=== PATIENT | male | born 1940 | race Hispanic/Latino ===

== ENCOUNTER 2017-08-08 12:53 | Inpatient (IN) | payer MEDICARE, OTHER ==
[2017-08-08] MEDS ORDERED: Sodium Chloride 0.9% 1,000 ML IV SCH (13:00)
[2017-08-08 13:32] LABS: BASO # 0.1 K/uL (0.0-0.2); BASO % 1.1 % (0.0-2.0); EOS # 0.1 K/uL (0.0-0.7); EOS % 0.9 % (0.0-4.0); HEMOGLOBIN 13.4 g/dL (12.0-18.0); LYMPH # 0.9 K/uL (1.0-4.3); LYMPH % 7.9 % (20.0-40.0); MEAN CELL VOLUME 91.2 fl (80.0-94.0); MEAN CORPUSCULAR HEMOGLOBIN 29.3 pg (27.0-31.0); MEAN CORPUSCULAR HGB CONC 32.1 g/dL (33.0-37.0); MEAN PLATELET VOLUME 9.3 fl (7.2-11.7); MONO # 0.6 K/uL (0.0-0.8); MONO % 5.3 % (0.0-10.0); NEUT # 9.3 K/uL (1.8-7.0); NEUT % 84.8 % (50.0-75.0); PLATELET COUNT 326 K/uL (130-400); RBC 4.59 Mil/uL (4.40-5.90); RED CELL DISTRIBUTION WIDTH 16.4 % (11.5-14.5)
--- NOTE | 2017-08-08 13:32 | CT ---
PROCEDURE: CT HEAD WITHOUT CONTRAST. HISTORY: code stroke COMPARISON: CT head dated 06/09/2008. TECHNIQUE: Axial computed tomography images were obtained through the head/brain without intravenous contrast. Radiation dose: Total exam DLP = 2228.9 mGy-cm. This CT exam was performed using one or more of the following dose reduction techniques: Automated exposure control, adjustment of the mA and/or kV according to patient size, and/or use of iterative reconstruction technique. FINDINGS: HEMORRHAGE: 2.1 x 1.7 cm area of hemorrhage involving the medial right parietal occipital lobe with involvement of the right splenium. No intraventricular hemorrhage. BRAIN: No midline shift. No mass effect or edema. Atrophy. Chronic microvascular ischemic changes. VENTRICLES: Prominent. No hydrocephalus. CALVARIUM: Unremarkable. PARANASAL SINUSES: Unremarkable as visualized. No significant inflammatory changes. MASTOID AIR CELLS: Unremarkable as visualized. No inflammatory changes. OTHER FINDINGS: None. IMPRESSION: 2.1 x 1.7 cm area of hemorrhage involving the right medial right parieto-occipital lobe with involving the right splenium. No midline shift or intraventricular hemorrhage. Findings conveyed to Dr. Estrella by Dr. Smith at 1:18 p.m. on 08/08/2017.
[2017-08-08 13:40] LABS: PARTIAL THROMBOPLASTIN TIME 30.4 Seconds (25.6-37.1); PROTHROMBIN TIME 11.1 Seconds (9.8-13.1)
[2017-08-08 13:44] VITALS: BMI 19.5
[2017-08-08] MEDS ORDERED: Sodium Chloride 0.9% 50 ML IV ONE (13:54)
[2017-08-08] MEDS ORDERED: Iodixanol 320 MG/ML 100 ML BOTTLE IV ONE (13:54)
--- NOTE | 2017-08-08 13:56 | ED PDOC ---
HPI:STROKE - Time Time: 13:00 - Historian Historian: Patient, EMS - Chief Complaint Chief Complaint: Weakness, Facial droop - Onset Date: 08/08/17 Time: 12:45 Onset: Hours - Timing Timing: Currently Symptomatic - Context Context: Other (working in the garden) - Location Locate left: other (UE and LE, face) - Severity of pain Maximum severity:: None Severity Current: None - TPA Positive for Contraindication: Yes Reason tPA is not being Administered: intracranial bleeding NIHSS Stroke Scale - Date/Time Evaluation Performed Date Performed: 08/08/17 Time Performed: 13:00 When Was NIHSS Performed: Code Stroke - How Severe is the Stroke Level of Consciousness: 0=Alert LOC to Questions: 0=Both comments correct LOC to commands: 0=Obeys both correctly Best Gaze: 0=Normal Visual: 0=No visual loss Facial: 1=Minor asymmetry Motor Arm - Left: 2=Falls before 10 sec Motor Arm - Right: 1=Drift noted before 10 sec Motor Leg - Left: 3=No effort against gravity (falls immediately) Motor Leg - Right: 0=No drift Limb Ataxia: 1=Present Upper or Lower Sensory: 0=Normal Best Language: 0=No aphasia Dysarthia: 0=Normal articulation Extinction & Inattention (Neglect): 0=Normal, no object Score: 8 rTPA Inclusion/Exclusion - Refusal of Treatment Patient Refused Treatment: No - Inclusion Criteria for Altepase Patient is 18 years or Older: Yes The Clinical Diagnosis of Ischemic Stroke That is Causing a Potentially Disabling Neurological Deficit: No Time of Onset is Well Established to be Less Than 270 Minute Before Treatment Would Begin: Yes Risk/Benefit Discussed With Patient/Family Member Present: No - Exclusion Criteria for Altepase Evidence of an Intracranial Hemorrhage: Yes Past Medical History Reviewed: Historical Data, Nursing Documentation, Vital Signs Vital Signs: Last Vital Signs Temp 97.9 F 08/08/17 13:44 Pulse 99 H 08/08/17 13:45 Resp 22 08/08/17 13:45 BP 120/79 08/08/17 13:45 Pulse Ox 98 08/08/17 13:45 - Medical History PMH: No Chronic Diseases - Family History Family History: States: Unknown Family Hx - Home Medications Home Medications: Ambulatory Orders Medication Instructions Recorded Aspirin [Ecotrin] 81 mg PO DAILY 08/08/17 - Allergies Allergies/Adverse Reactions: Allergies Allergy/AdvReac Type Severity Reaction Status Date / Time No Known Allergies Allergy Verified 08/08/17 12:58 Review of Systems ROS Statement: Except As Marked, All Systems Reviewed And Found Negative Neurological: Positive for: Weakness (left face, arm, leg), Other (shaking, facial droop) Physical Exam - Reviewed Nursing Documentation Reviewed: Yes Vital Signs Reviewed: Yes - Physical Exam Appears: Positive for: Non-toxic, No Acute Distress Head Exam: Positive for: ATRAUMATIC, NORMAL INSPECTION, NORMOCEPHALIC Skin: Positive for: Normal Color, Warm, Dry Eye Exam: Positive for: EOMI, Normal appearance, PERRL ENT: Positive for: Normal ENT Inspection Neck: Positive for: Normal, Painless ROM, Supple. Negative for: Decreased ROM, Limited ROM Cardiovascular/Chest: Positive for: Tachycardia, Irregularly Irregular. Negative for: Murmur Gastrointestinal/Abdominal: Positive for: Normal Exam, Bowel Sounds, Soft. Negative for: Tenderness, Guarding, Rebound Back: Positive for: Normal Inspection. Negative for: L CVA Tenderness, R CVA Tenderness Extremity: Positive for: Normal ROM. Negative for: Tenderness, Pedal Edema, Deformity Neurologic/Psych: Positive for: Alert (awake), Oriented (x3), Facial Droop (left -side), Other (seizure activity, weakness on left arm and leg) - Laboratory Results Result Diagrams: 08/08/17 13:20 08/08/17 13:20 - ECG O2 Sat by Pulse Oximetry: 98 (RA) Pulse Ox Interpretation: Normal - Progress ED Course And Treament: 77 year old male was brought to the ED via EMS who reported patient had a facial droop and was shaking 15 minutes prior to arrival. According to EMS, patient was working in the garden and developed weakness and ambulance was called. Patient is not complaining at this time but hands and body are still shaking at this time. States he has not had seizure in the past. Denies loss of consciousness, fall, or head injury. PMD: No Family Provider - Critical Care Total Time (In Min): 60 Medical Decision Making Medical Decision Making: Time: 1300 Initial Impression: stroke, seizure Differential Diagnosis includes but is not limited to: acute CVA, hemorrhagic vs ischemic, seizure Initial Plan: --BBK --CTZ Head/Neck Code Stroke CT --Head w/o (code stroke) CT --EKG --CMP --Hemoglobin A1C --Lipid Panel --Troponin I --CBC w/ Differential --PTT --Prothrombin Time --Ativan 2mg --Normal Saline 100mls/hr --Rail Bonder --IV Insertion --Nursing swallow screen --Glucose, Blood, POC --Vital Signs Q15min --Reevaluation Code stroke called when patient arrived at 13:00 Time: 1319 CT report Spoke to Radiologist who confirmed it is a hemorrhagic stroke Time: [address] Elder, neurologist who advised to admit patient to ICU and have neurosurgical consult. Time: [address] Art who suggested no neurosurgical evaluation or interventions indicated at this time. Time: 1330 Spoke to prevocational/rehabilitation counselor, Dr. Johnson for admission Spoke with Dr Brower for admission who requests Dr Bryant Time: 1330 PROCEDURE: CT HEAD WITHOUT CONTRAST. HISTORY: code stroke COMPARISON: CT head dated 06/09/2008. TECHNIQUE: Axial computed tomography images were obtained through the head/brain without intravenous contrast. Radiation dose: Total exam DLP = 2228.9 mGy-cm. This CT exam was performed using one or more of the following dose reduction techniques: Automated exposure control, adjustment of the mA and/or kV according to patient size, and/or use of iterative reconstruction technique. FINDINGS: HEMORRHAGE: 2.1 x 1.7 cm area of hemorrhage involving the medial right parietal occipital lobe with involvement of the right splenium. No intraventricular hemorrhage. BRAIN: No midline shift. No mass effect or edema. Atrophy. Chronic microvascular ischemic changes. VENTRICLES: Prominent. No hydrocephalus. CALVARIUM: Unremarkable. PARANASAL SINUSES: Unremarkable as visualized. No significant inflammatory changes. MASTOID AIR CELLS: Unremarkable as visualized. No inflammatory changes. OTHER FINDINGS: None. IMPRESSION: 2.1 x 1.7 cm area of hemorrhage involving the right medial right parieto- occipital lobe with involving the right splenium. No midline shift or intraventricular hemorrhage. Findings conveyed to Dr. Estrella by Dr. Smith at 1:18 p.m. on 08/08/2017. Scribe Attestation: Documented by Marco Antonio Weir, acting as a scribe for Corry Estrella MD Provider Scribe Attestation: All medical record entries made by the Scribe were at my direction and personally dictated by me. I have reviewed the chart and agree that the record accurately reflects my personal performance of the history, physical exam, medical decision making, and the department course for this patient. I have also personally directed, reviewed, and agree with the discharge instructions and disposition. Disposition - Clinical Impression Clinical Impression: Hemorrhagic cerebrovascular accident (CVA), Intraparenchymal hemorrhage of brain, Seizure - Patient ED Disposition Is Patient to be Admitted: Yes Discussed With : Clint Brower Doctor Will See Patient In The: Hospital Counseled Patient/Family Regarding: Studies Performed, Diagnosis - Disposition Disposition: Routine/Home Disposition Time: 13:30 Condition: GUARDED - Pt Status Changed To: Hospital Disposition Of: Inpatient - Admit Certification Admit to Inpatient:: After my assessment, the patient will require hospitalization for at least two midnights. This is because of the severity of symptoms shown, intensity of services needed, and/or the medical risk in this patient being treated as an outpatient. - POA Present On Arrival: None Core Measure Indicators: Code Stroke
[2017-08-08 13:57] LABS: ALB/GLOB RATIO 1.1 (1.0-2.1); ALBUMIN 4.1 g/dL (3.5-5.0); ALT/SGPT 14 U/L (21-72); AST/SGOT 22 U/L (17-59); BLOOD UREA NITROGEN 23 mg/dl (9-20); CALCIUM 9.2 mg/dL (8.4-10.2); GFR AFRICAN-AMERICAN > 60; GFR NON-AFRICAN AMERICAN > 60; HDL CHOLESTEROL 56 MG/DL (30-70)
--- NOTE | 2017-08-08 14:00 | RAD ---
HISTORY: Code Stroke COMPARISON: Chest radiograph dated 04/19/2008 FINDINGS: LUNGS: No active pulmonary disease. PLEURA: No significant pleural effusion identified, no pneumothorax apparent. CARDIOVASCULAR: Atherosclerotic aortic calcifications. Cardiomediastinal silhouette unchanged. OSSEOUS STRUCTURES: Degenerative changes. VISUALIZED UPPER ABDOMEN: Normal. OTHER FINDINGS: None. IMPRESSION: No active disease.
[2017-08-08 14:08] LABS: LDL CHOLESTEROL 74 mg/dL (0-129)
[2017-08-08 14:30] LABS: LYMPHOCYTE 13 % (20-50); MONOCYTE 3 % (0-10); NEUTROPHIL 84 % (42-75); PLATELET ESTIMATE NORMAL (NORMAL); TOTAL CELLS COUNTED 100
[2017-08-08 14:33] LABS: ANISOCYTOSIS SLIGHT; HYPERSEGMENTATION PRESENT
--- NOTE | 2017-08-08 15:06 | CARD ---
APPROVED REPORT EKG Measurement Heart [id number] PA [id number] [id number] <Conclusion> Sinus rhythm with premature supraventricular complexes Septal infarct, age undetermined Abnormal ECG
[2017-08-08] MEDS ORDERED: Potassium Ch 20mEq in D5-1/2NS 1,000 ML IV SCH (15:30)
--- NOTE | 2017-08-08 18:00 | CT ---
PROCEDURE: CT Angiography of the Brain and Neck. HISTORY: stroke COMPARISON: None available. TECHNIQUE: CT angiography of the intracranial and neck arteries was performed. Coronal and sagittal maximum intensity projection reformatted images were generated. Contrast Dose: Visipaque 320, 99 cc Radiation dose:Total exam DLP = 826.42 mGy-cm. This CT exam was performed using one or more of the following dose reduction techniques: Automated exposure control, adjustment of the mA and/or kV according to patient size, and/or use of iterative reconstruction technique. FINDINGS: INTERNAL CEREBRAL ARTERIES: Unremarkable. The skull base, petrous, cavernous and supraclinoid segments are bilaterally widely patent. ANTERIOR CEREBRAL ARTERIES: Unremarkable. A1 and A2 segments are widely patent. Smaller distal branches unremarkable, as visualized. MIDDLE CEREBRAL ARTERIES: Unremarkable. M1 and M2 segments are widely patent. Perisylvian branches grossly symmetric. POSTERIOR CIRCULATION: Basilar Artery: Unremarkable. Distal Vertebral Arteries: Unremarkable. Codominant vertebral basilar flow pattern identified. Posterior Cerebral Arteries: Unremarkable. Posterior Inferior Cerebellar Arteries: Unremarkable. NECK CTA: Common Carotid arteries: The bilateral common carotid appear widely patent from their origins to their bifurcations with no significant stenosis appreciated. Trace bilateral carotid bulbar atherosclerosis No evidence to suggest common carotid artery dissection. Bovine arch noted Internal Carotid arteries: No significant stenosis is appreciated throughout the cervical internal carotid artery segments bilaterally and there is no evidence of dissection either. External Carotid arteries: Appear unremarkable bilaterally. Vertebral arteries: The bilateral vertebral arteries appear normal in caliber from their origins to their junction with the basilar artery. No significant stenosis or definite pattern of dissection. ANEURYSM/ VASCULAR MALFORMATIONS: None. OTHER FINDINGS: None. IMPRESSION: No occlusion or significant stenosis throughout CT Angiography of the Brain and Neck. Bovine arch noted.
--- NOTE | 2017-08-08 20:43 | CP.PCM.HP ---
History of Present Illness - History of Present Illness History of Present Illness: 77 yo with hx HTN smoker admitted for L sided weakness CT scan showed a R parietal occipital hemorrhage Present on Admission - Present on Admission Any Indicators Present on Admission: No Past Patient History - Past Social History Smoking Status: Heavy Smoker > 10 Cigarettes Daily - CARDIAC Hx Cardiac Disorders: No - HEMATOLOGICAL/ONCOLOGICAL Hx AIDS: No Hx Human Immunodeficiency Virus (HIV): No - MUSCULOSKELETAL/RHEUMATOLOGICAL Hx Falls: No - PSYCHIATRIC Hx Substance Use: No - SURGICAL HISTORY Hx Surgeries: No - ANESTHESIA Hx Anesthesia: Yes Hx Anesthesia Reactions: No Hx Malignant Hyperthermia: No Has any member of the family had a problem w/ anesthesia?: No Meds Allergies/Adverse Reactions: Allergies Allergy/AdvReac Type Severity Reaction Status Date / Time No Known Allergies Allergy Verified 08/08/17 12:58 Physical Exam - Respiratory Exam Respiratory Exam: NORMAL BREATHING PATTERN - Cardiovascular Exam Cardiovascular Exam: REGULAR RHYTHM - GI/Abdominal Exam GI & Abdominal Exam: Normal Bowel Sounds Results - Vital Signs Recent Vital Signs: Last Vital Signs Temp 98 F 08/08/17 20:00 Pulse 69 08/08/17 20:00 Resp 20 08/08/17 20:00 BP 139/88 08/08/17 20:00 Pulse Ox 99 08/08/17 20:00 - Labs Result Diagrams: 08/08/17 13:20 08/08/17 13:20 Labs: Laboratory Results - last 24 hr 08/08/17 08/08/17 08/08/17 13:20 13:20 13:20 WBC 11.0 H RBC 4.59 Hgb 13.4 Hct 41.9 MCV 91.2 MCH 29.3 MCHC 32.1 L RDW 16.4 H Plt Count 326 MPV 9.3 Neut % (Auto) 84.8 H Lymph % (Auto) 7.9 L Dewitt % (Auto) 5.3 Eos % (Auto) 0.9 Baso % (Auto) 1.1 Neut # (Auto) 9.3 H Lymph # (Auto) 0.9 L Dewitt # (Auto) 0.6 Eos # (Auto) 0.1 Baso # (Auto) 0.1 Neutrophils % (Manual) 84 H Lymphocytes % (Manual) 13 L Monocytes % (Manual) 3 Hypersegmented Polys Present Platelet Estimate Normal Anisocytosis (manual) Slight PT INR APTT Sodium 142 Potassium 4.0 Chloride 104 Carbon Dioxide 20 L Anion Gap 22 H BUN 23 H Creatinine 1.0 Est GFR ( Amer) > 60 Est GFR (Non-Af Amer) > 60 Random Glucose 154 H Hemoglobin A1c 5.5 Calcium 9.2 Total Bilirubin 0.4 AST 22 ALT 14 L Alkaline Phosphatase 54 Troponin I < 0.0120 Total Protein 7.7 Albumin 4.1 Globulin 3.6 Albumin/Globulin Ratio 1.1 Triglycerides 66 Cholesterol 152 LDL Cholesterol Direct 74 HDL Cholesterol 56 Blood Type Antibody Screen BBK History Checked 08/08/17 08/08/17 13:20 13:20 WBC RBC Hgb Hct MCV MCH MCHC RDW Plt Count MPV Neut % (Auto) Lymph % (Auto) Dewitt % (Auto) Eos % (Auto) Baso % (Auto) Neut # (Auto) Lymph # (Auto) Dewitt # (Auto) Eos # (Auto) Baso # (Auto) Neutrophils % (Manual) Lymphocytes % (Manual) Monocytes % (Manual) Hypersegmented Polys Platelet Estimate Anisocytosis (manual) PT 11.1 INR 1.0 APTT 30.4 Sodium Potassium Chloride Carbon Dioxide Anion Gap BUN Creatinine Est GFR ( Amer) Est GFR (Non-Af Amer) Random Glucose Hemoglobin A1c Calcium Total Bilirubin AST ALT Alkaline Phosphatase Troponin I Total Protein Albumin Globulin Albumin/Globulin Ratio Triglycerides Cholesterol LDL Cholesterol Direct HDL Cholesterol Blood Type O POSITIVE Antibody Screen Negative BBK History Checked Patient has bt Assessment & Plan - Assessment and Plan (Free Text) Assessment: R parietal occipital lobe hemorrhage Admit to ICU Neurology and Neurosurgery Cardiology Monitor BP Hx HTN smoker - Date & Time Date: 08/08/17 Time: 22:22
--- NOTE | 2017-08-09 04:07 | CON ---
DATE: 08/08/2017 CRITICAL CARE CONSULTATION Patient in ICU, bed 433 TIME SPENT: 35 minutes. The patient is seen and evaluated at the bedside at the request of ER physician for this 77-year-old male who presented to the emergency room with weakness and facial droop. HISTORY OF PRESENT ILLNESS: The patient is a 77-year-old male with no significant medical history in the past, on aspirin 81 mg at home who has been in his usual state of health until this morning when he felt weak on his left arm and left leg associated with facial droop. Brought to emergency room by EMS. In ER, the patient was noted to be alert and awake and able to follow commands appropriately. Vital signs showed temperature 97.9; heart rate 99, regular; respiratory rate 22, thoracoabdominal; blood pressure 120/79, and pulse oximetry 98%. Code stroke was called. Obtained a CT of the head that showed right parietal bleed 2.1 x 1.7 cm without significant edema. No midline shift as well as no intraventricular hemorrhage. The patient is admitted to ICU for further observation and management. PAST MEDICAL HISTORY: Negative for diabetes mellitus type 2, hypertension, hyperlipidemia, coronary artery disease, congestive heart failure, asthma, COPD. No other coagulation disorder. SURGICAL HISTORY: Unremarkable. MEDICATIONS: As noted, aspirin. ALLERGIES: NONE DOCUMENTED. FAMILY HISTORY: Nonsignificant. SOCIAL HISTORY: Unremarkable. PHYSICAL EXAMINATION: GENERAL: Elderly male oriented to name, place, and time and slow to respond. VITAL SIGNS: Temperature 97.9 rectally, heart rate 99, regular, blood pressure 120/79, mean arterial pressure 92, respiratory rate 22, and saturation 98%. HEENT: Pupils are reactive. Conjunctivae pink. Sclerae are white. Neck supple. Trachea central. CHEST: Bilateral breath sounds clear to auscultation. HEART: Rhythm regular. S1 and S2 normal intensity. No S3, S4, or gallop. No audible murmur. ABDOMEN: Bowel sounds are present. Soft. Liver and spleen not palpable. Bladder not distended. EXTREMITIES: No clubbing, cyanosis, edema. NEUROLOGIC: Left facial droop. Motor weakness to 1 to 2 over 5 on the left arm and the left leg. Deep tendon reflexes 2+ bilaterally. Plantar extensor on the right, equivocal on the left. LABORATORY DATA AND DIAGNOSTIC DATA: WBC 11, hemoglobin 13.4, hematocrit 41.9, platelet count 326. Neutrophils 84.8, leukocytes 7.9, monocytes 5.3. PT of 11.1, INR 1, PTT 30.4. SMA-7; sodium 142, potassium 4, chloride 104, CO2 of 20, blood urea nitrogen 23, creatinine 1, calcium 9.2, total bilirubin 0.4, AST 22, ALT 14, and alkaline phosphatase 54. Troponin less than 0.0120. Total protein 7.7 and albumin 4.1. Triglycerides 66, cholesterol 152, LDL 74, and HDL 56. Chest x-ray, no acute infiltrate. Prominent fold of the left axilla on the left. Head CT 2.1 x 1.7 right parietal intracerebral hematoma without midline shift. IMPRESSION: Elderly male with no significant medical history presenting with weakness and facial droop. CT suggests right parietal hematoma. No midline shift. Hemodynamically stable. Maintained blood pressure of 140 to 160. Swallow evaluation is pending. Diet as appropriate pending swallow evaluation. DVT prophylaxis with Venodyne boots. Hold anticoagulation due to intracerebral hematoma. No need for GI prophylaxis. Closely monitor for further seizure. Appreciate neurosurgery input. No surgical intervention is planned at this time. EKG is within normal limits. No acute cardiac issues. No pulmonary issues. Renal, GI evaluations are within normal limits. Jesus Johnson MD MTDD
[2017-08-09 05:46] LABS: HEMOGLOBIN 12.1 g/dL (12.0-18.0); MEAN CELL VOLUME 89.5 fl (80.0-94.0); MEAN CORPUSCULAR HEMOGLOBIN 30.1 pg (27.0-31.0); MEAN CORPUSCULAR HGB CONC 33.6 g/dL (33.0-37.0); RBC 4.02 Mil/uL (4.40-5.90); RED CELL DISTRIBUTION WIDTH 16.3 % (11.5-14.5); WHITE BLOOD COUNT 7.7 K/uL (4.8-10.8)
[2017-08-09 05:53] LABS: LDL CHOLESTEROL 63 mg/dL (0-129)
[2017-08-09 06:03] LABS: BLOOD UREA NITROGEN 23 mg/dl (9-20); GFR AFRICAN-AMERICAN > 60; GFR NON-AFRICAN AMERICAN > 60
[2017-08-09 06:04] LABS: CALCIUM 8.6 mg/dL (8.4-10.2); HDL CHOLESTEROL 46 MG/DL (30-70)
[2017-08-09] MEDS ORDERED: Gadodiamide 287 MG/ML VIAL (15ML) IV ONE (12:17)
--- NOTE | 2017-08-09 16:06 | CP.CCUPN ---
CCU Subjective - Physician Review Subjective (Free Text): Easily arousable from sleep, no obvious facial asymmetry now, Left hemiparesis persists. No new deficits, denies any dizziness, headaches, nausea, palpitations ; otherwise not very enthusiastic in getting OOB to chair. Other vitals and I/O's reviewed. ROS: No other pertinent negs or positives on 10+ system review. PMSFH: All other Nursing and physician documentation reviewed to date; no new pertinent info noted relevant to current medical problems. EXAM- HEENT: no icterus, no gaze preference, pupils: equal and reactive bilat. NECK: No JVD, supple, carotids equal upstroke bilat/no bruits CHEST: decreased BS bases, no wheezes audible HEART: regular, distant, S1S2, no rubs or murmurs ABD: soft, no distention, no tympany, no palp tenderness, BS hypoactive EXT: No peripheral/ digital cyanosis, no calf tenderness or palpable cords, distal pulses intact and symmetrical. NEURO: left hemiparesis, plantars: withdrawal bilaterally SKIN: no rashes, warm and dry. LABS: WBC= 7.7 HGB= 12.1 PLTs= 248K Coags normal Yl=583 K= 3.7 CL= 104 HCO3= 29 BUN/Cr= 23/0.9 BS= 90 IMPRESSION / MAJOR PROBLEMS NOW: 1. Hemorrhagic CVA, r/o occult hemorrhagic mass lesion 2. Accelerated HTN 3. Azotemia / Dehydration PLAN: 1. Brain MRI results pending 2. Maintain Neuro checks and seizure precautions. 3. Physical Therapy eval 4. Watch BP trends, keep SBP below 140-150. SBPs have bben in the 160's at times, will start Amlodipine and follow trends. 5. Stop IVF hydration with hypotonic fluids, change to NSS. CCU Objective - Vital Signs / Intake & Output Vital Signs (Last 4 hours): Vital Signs Pulse Resp BP Pulse Ox 08/09/17 14:00 61 18 154/88 H 95 Intake and Output (Last 8hrs): Intake & Output 08/09/1718 08/09/17 06:59 14:59 22:59 Intake Total 378 492 Output Total 600 1050 200 Balance -222 -558 -200 Weight 160 lb Intake: IV 378 252 Oral 0 240 Output: Urine 600 1050 200 Urine, Voided 600 1050 200 Other: # Voids Urine, Voided 1 # Bowel Movements 0
--- NOTE | 2017-08-09 17:32 | MRI ---
PROCEDURE: MRI BRAIN WITH AND WITHOUT CONTRAST HISTORY: cva COMPARISON: CT scan 08/08/2017 TECHNIQUE: Multiplanar, multisequence MR images of the brain were obtained with and without intravenous contrast enhancement. 15 cc of Omniscan FINDINGS: HEMORRHAGE: As seen on the CT study there is an acute hemorrhage in the right medial parietal occipital lobe measuring 14 x 23 mm. DWI: No evidence of an acute or early subacute infarction. BRAIN PARENCHYMA: No mass,mass effect or edema. Severe chronic microvascular changes are seen in the periventricular white matter ENHANCEMENT: No abnormal intracranial enhancement. VENTRICLES: Unremarkable. No hydrocephalus. CRANIUM: Unremarkable. ORBITS: Grossly unremarkable. PARANASAL SINUSES/MASTOIDS: Clear VASCULAR SYSTEM: Skull base flow voids intact. OTHER FINDINGS: None . IMPRESSION: Acute hemorrhage in the right medial parietal occipital lobe measuring 14 x 23 mm. No evidence of enhancing tumor. No evidence of acute infarct. Severe chronic microvascular changes.
--- NOTE | 2017-08-09 17:39 | CP.PCM.PN ---
Subjective - Date & Time of Evaluation Date of Evaluation: 08/09/17 Time of Evaluation: 22:22 - Subjective Subjective: Stable Objective - Vital Signs/Intake and Output Vital Signs (last 24 hours): Temp Pulse Resp BP Pulse Ox 98.1 F 75 16 162/104 H 99 08/09/17 16:00 08/09/17 16:00 08/09/17 16:00 08/09/17 16:20 08/09/17 16:00 Intake and Output: 08/09/17 08/09/17 06:59 18:59 Intake Total 504 492 Output Total 900 1250 Balance -876 -812 - Medications Medications: Current Medications Amlodipine Besylate (Norvasc) 5 mg PO DAILY BLOSSOM - Labs Labs: 08/09/17 05:00 08/09/17 05:00 PT 11.1 Seconds (9.8-13.1) 08/08/17 13:20 INR 1.0 (0.9-1.2) 08/08/17 13:20 APTT 30.4 Seconds (25.6-37.1) 08/08/17 13:20 - Respiratory Exam Respiratory Exam: NORMAL BREATHING PATTERN - Cardiovascular Exam Cardiovascular Exam: REGULAR RHYTHM - GI/Abdominal Exam GI & Abdominal Exam: Hypoactive Bowel Sounds Assessment and Plan - Assessment and Plan (Free Text) Assessment: R parietal occipital lobe hemorrhage Admit to ICU Neurology and Neurosurgery Cardiology Monitor BP MRI Hx HTN smoker
--- NOTE | 2017-08-09 21:29 | CON ---
DATE: NEUROLOGY CONSULTATION REPORT REASON FOR CONSULTATION: Stroke. HISTORY OF PRESENTING ILLNESS: The patient is a 77-year-old male who was brought to the emergency room after he was noted to have left facial droop and left-sided weakness and questionable episode of shaking for 15 minutes. The patient apparently was working in the garden and developed weakness in the left side. EMS was called, and the patient was brought to the hospital. The patient denied any loss of consciousness. Denied any head trauma. The patient said that he feels a little better since yesterday. Denies having any headache or dizziness. REVIEW OF SYSTEMS: Denies any headache, dizziness, chest pain, shortness of breath, abdominal pain, constipation, diarrhea, dysuria, cough or sputum production. PAST MEDICAL HISTORY: None. MEDICATIONS: At home includes aspirin. ALLERGIES: NO KNOWN DRUG ALLERGIES. SOCIAL HISTORY: He does smoke cigarettes. Denies any use of alcohol or illicit drugs. FAMILY HISTORY: Reviewed and noncontributory to the case. PHYSICAL EXAMINATION: GENERAL: The patient is an elderly pleasant male, lying on the bed in no acute distress. VITAL SIGNS: His blood pressure is 157/69, heart rate is 69 per minute, breathing at the rate of 16 per minute, and temperature is 98.1 degrees Fahrenheit. HEENT: Normocephalic and atraumatic. NECK: Supple. There are no carotid bruits. LUNGS: Clear. CARDIOVASCULAR: S1 and S2 audible with no murmurs. ABDOMEN: Soft and nontender with bowel sounds present. NEUROLOGIC: Mental status: The patient is awake and alert. Oriented to place, person, year. He follows all simple commands. Cranial nerve examination: Pupils are 3 to 4 mm, bilaterally reactive to light. Visual hill are full. Extraocular movements are intact. There is decreased nasolabial fold on the left side. Palate is upgoing bilaterally and tongue is midline. Motor examination: Tone is normal. There is left-sided pronator drift. Otherwise, power is 4/5 to 5/5 on the left side and 5/5 on the right side. Reflexes are +2 and symmetrical. Plantars downgoing bilaterally. Cerebellar examination: [id number] shows no dysmetria. Gait is deferred at the moment. LABORATORY DATA: Labs reviewed showed WBC of 7.7, hemoglobin of 12.1, hematocrit of 36, and platelets of 248. Sodium is 140, potassium 3.7, chloride of 104, carbon dioxide content 29, BUN of 23, creatinine of 0.9, and glucose of 90. The patient's INR is 1. The patient had a CT scan of the head done which showed 2.1 x 1.7 cm area of hemorrhage involving the right medial and right parietal occipital lobe with involving the right splenium, no midline shift or intraventricular hemorrhage. The patient also had a CT angiogram done that shows no occlusion or significant stenosis throughout the CT angiography of the brain and neck. IMPRESSION: Cerebrovascular accident with right parietal hemorrhage. RECOMMENDATIONS: 1. The patient to have MRI of the brain with and without contrast to look for any undermining pathology responsible for the patient's hemorrhage. Any metastasis had to be ruled out with his history of chronic smoking. 2. The patient to have frequent neuro checks. 3. The patient's blood pressure is to be watched very closely. 4. The patient may get out of bed and to be started on physical therapy as the patient tolerates. 5. The patient also to have occupational therapy. 6. Please continue supportive care and treatment. Thank you for the opportunity to participate in the care of this patient. Jake Bryant MD
[2017-08-10 05:40] LABS: BASO # 0.1 K/uL (0.0-0.2); BASO % 1.1 % (0.0-2.0); EOS # 0.2 K/uL (0.0-0.7); EOS % 2.9 % (0.0-4.0); HEMOGLOBIN 12.7 g/dL (12.0-18.0); LYMPH % 11.8 % (20.0-40.0); MEAN CELL VOLUME 90.1 fl (80.0-94.0); MEAN CORPUSCULAR HEMOGLOBIN 30.1 pg (27.0-31.0); MEAN CORPUSCULAR HGB CONC 33.4 g/dL (33.0-37.0); MEAN PLATELET VOLUME 9.4 fl (7.2-11.7); MONO # 0.8 K/uL (0.0-0.8); MONO % 8.8 % (0.0-10.0); NEUT # 6.4 K/uL (1.8-7.0); NEUT % 75.4 % (50.0-75.0); RBC 4.22 Mil/uL (4.40-5.90); RED CELL DISTRIBUTION WIDTH 16.2 % (11.5-14.5); WHITE BLOOD COUNT 8.5 K/uL (4.8-10.8)
[2017-08-10 05:53] LABS: BLOOD UREA NITROGEN 15 mg/dl (9-20); CALCIUM 8.9 mg/dL (8.4-10.2); GFR AFRICAN-AMERICAN > 60; GFR NON-AFRICAN AMERICAN > 60
--- NOTE | 2017-08-10 12:35 | CP.CCUPN ---
CCU Subjective - Physician Review Subjective (Free Text): in pleasant nondistressed mood, SBP still 150's at times, no new focal deficits , no facial asymmetry today. Other vitals and I/O's reviewed. ROS: No other pertinent negs or positives on 10+ system review. PMSFH: All other Nursing and physician documentation reviewed to date; no new pertinent info noted relevant to current medical problems. EXAM- HEENT: no icterus, no gaze preference, pupils: equal and reactive bilat. NECK: No JVD, supple, carotids equal upstroke bilat/no bruits CHEST: decreased BS bases, no wheezes audible HEART: regular, distant, S1S2, no rubs or murmurs ABD: soft, no distention, no tympany, no palp tenderness, BS hypoactive EXT: No peripheral/ digital cyanosis, no calf tenderness or palpable cords, distal pulses intact and symmetrical. NEURO: left hemiparesis, plantars: withdrawal bilaterally SKIN: no rashes, warm and dry. LABS: WBC= 8.5 HGB= 12.7 PLTs= 230K Coags normal Gz=219 K= 3.7 CL= 101 HCO3= 31 BUN/Cr= 15/0.8 BS= 98 IMPRESSION / MAJOR PROBLEMS NOW: 1. Hemorrhagic CVA, r/o occult hemorrhagic mass lesion 2. Accelerated HTN 3. Azotemia / Dehydration PLAN: 1. Brain MRI results confirm hemorrhagic event, no mass lesion identified. 2. Maintain Neuro checks and seizure precautions. 3. Physical Therapy eval 4. Watch BP trends, keep SBP below 140-150. SBPs have been in the 160's at times, started Amlodipine yesterday and dose increased today; follow trends. 5. Stop IVF hydration with hypotonic fluids. 6. Avid smoker: now down to 1/2 PPD from 1 PPD; Nicotine patch started. 7. Stable for further mgmt and observation on Telemetry floor post-Code Stroke. CCU Objective - Vital Signs / Intake & Output Vital Signs (Last 4 hours): Vital Signs Temp Pulse Resp BP Pulse Ox 08/10/17 11:27 97.8 F 84 19 134/79 96 08/10/17 10:00 71 11 L 148/90 93 L 08/10/17 09:11 74 146/91 H Intake and Output (Last 8hrs): Intake & Output 06/08/2108/10/17 08/10/17 22:59 06:59 14:59 Intake Total 360 0 250 Output Total 500 350 Balance -140 0 -100 Intake: IV 0 0 0 Oral 360 250 Output: Urine 500 350 Urine, Voided 500 350 Other: # Voids Urine, Voided 3 2
--- NOTE | 2017-08-10 21:02 | CP.PCM.PN ---
Subjective - Date & Time of Evaluation Date of Evaluation: 08/10/17 Time of Evaluation: 22:22 - Subjective Subjective: Above noted Objective - Vital Signs/Intake and Output Vital Signs (last 24 hours): Temp Pulse Resp BP Pulse Ox 98 F 83 18 121/82 98 08/10/17 20:00 08/10/17 20:00 08/10/17 20:00 08/10/17 20:00 08/10/17 20:00 Intake and Output: 08/10/17 08/11/17 18:59 06:59 Intake Total 250 Output Total 350 200 Balance -100 -200 - Medications Medications: Current Medications Acetaminophen (Tylenol 325mg Tab) 650 mg PO Q6 PRN PRN Reason: Pain, Mild (1-3) Amlodipine Besylate (Norvasc) 10 mg PO DAILY [facility] Nicotine (Nicoderm Cq) 1 patch TD DAILY [facility] Last Admin: 08/10/17 12:59 Dose: 1 patch - Labs Labs: 08/10/17 04:30 08/10/17 04:30 PT 11.1 Seconds (9.8-13.1) 08/08/17 13:20 INR 1.0 (0.9-1.2) 08/08/17 13:20 APTT 30.4 Seconds (25.6-37.1) 08/08/17 13:20 - Respiratory Exam Respiratory Exam: NORMAL BREATHING PATTERN - Cardiovascular Exam Cardiovascular Exam: REGULAR RHYTHM - GI/Abdominal Exam GI & Abdominal Exam: Normal Bowel Sounds Assessment and Plan - Assessment and Plan (Free Text) Assessment: R parietal occipital lobe hemorrhage MRI no underlying lesion Neurology Cardiology Monitor BP PT OT Hx HTN smoker
--- NOTE | 2017-08-11 12:45 | CP.PCM.CON ---
History of Present Illness - History of Present Illness History of Present Illness: 77 yo male admitted with hemorrhagic stroke , weakness facial droop, NSR , accelerated hypertension currently controlled. Pt sitting in chair comfortably , alert and verbal. Past Patient History - Past Social History Smoking Status: Current Some Days Smoker - CARDIAC Hx Cardiac Disorders: No - HEMATOLOGICAL/ONCOLOGICAL Hx AIDS: No Hx Human Immunodeficiency Virus (HIV): No - MUSCULOSKELETAL/RHEUMATOLOGICAL Hx Falls: No - PSYCHIATRIC Hx Substance Use: No - SURGICAL HISTORY Hx Surgeries: No - ANESTHESIA Hx Anesthesia: Yes Hx Anesthesia Reactions: No Hx Malignant Hyperthermia: No Has any member of the family had a problem w/ anesthesia?: No Meds Allergies/Adverse Reactions: Allergies Allergy/AdvReac Type Severity Reaction Status Date / Time No Known Allergies Allergy Verified 08/08/17 12:58 - Medications Medications: Current Medications Acetaminophen (Tylenol 325mg Tab) 650 mg PO Q6 PRN PRN Reason: Pain, Mild (1-3) Amlodipine Besylate (Norvasc) 10 mg PO DAILY [facility] Last Admin: 08/11/17 08:19 Dose: 10 mg Nicotine (Nicoderm Cq) 1 patch TD DAILY [facility] Last Admin: 08/11/17 08:21 Dose: 1 patch Physical Exam - Head Exam Head Exam: NORMAL INSPECTION - Neck Exam Neck exam: Positive for: Normal Inspection - Respiratory Exam Respiratory Exam: NORMAL BREATHING PATTERN - Cardiovascular Exam Cardiovascular Exam: REGULAR RHYTHM - GI/Abdominal Exam GI & Abdominal Exam: Normal Bowel Sounds - Extremities Exam Extremities exam: Positive for: normal inspection Results - Vital Signs Recent Vital Signs: Last Vital Signs Temp 98.1 F 08/11/17 12:00 Pulse 82 08/11/17 12:00 Resp 17 08/11/17 12:00 BP 148/70 08/11/17 12:00 Pulse Ox 96 08/11/17 12:00 - Labs Result Diagrams: 08/10/17 04:30 08/10/17 04:30 Assessment & Plan - Assessment and Plan (Free Text) Assessment: Agree with Bp control/ management Transfer to n Will order echo Will f/u after performed
--- NOTE | 2017-08-11 14:10 | CARD ---
APPROVED REPORT EXAM: Two-dimensional and M-mode echocardiogram with Doppler and color Doppler. Other Information Quality : FairRhythm : NSR Technically limited study due to Poor Echo Window INDICATION CVA/TIA 2D DIMENSIONS IVSd1.05 (0.7-1.1cm)LVDd4.93 (3.9-5.9cm) PWd0.82 (0.7-1.1cm)IVSs1.19 (0.8-1.2cm) LVDs4.11 (2.5-4.0cm)FS (%) 16.6 % PWs1.03 (0.8-1.2cm)LVEF (%)55.0 (>50%) Mitral Valve MV E Ztogvqov35.4cm/sMV DECEL [id number] A Numxkbtx36.0cm/s MV LFS12rnK/A ratio0.5MVA (PHT)3.74cm2 TDI Lateral E' Peak V12.06cm/sMedial E' Peak V4.97cm/sE/Lateral E'3.0 E/Medial E'7.3 LEFT VENTRICLE The left ventricle is normal size. There is normal left ventricular wall thickness. The left ventricular function is normal. The left ventricular ejection fraction is within the normal range. There is normal LV segmental wall motion. Transmitral Doppler flow pattern is Grade I-abnormal relaxation pattern. RIGHT VENTRICLE The right ventricle is normal size. There is normal right ventricular wall thickness. The right ventricular systolic function is normal. ATRIA The left atrium size is normal. The right atrium size is normal. AORTIC VALVE The aortic valve is not well visualized. No aortic regurgitation is present. There is no aortic valvular stenosis. MITRAL VALVE The mitral valve is not well visualized. There is no mitral valve stenosis. There is no mitral valve regurgitation noted. TRICUSPID VALVE The tricuspid valve is not well seen There is trace tricuspid regurgitation. PULMONIC VALVE not seen There is no pulmonic valvular regurgitation. GREAT VESSELS The aortic root is normal in size. The IVC was not visualized. PERICARDIAL EFFUSION The pericardium appears normal. <Conclusion> The left ventricle is normal size. There is normal left ventricular wall thickness. The left ventricular function is normal. The left ventricular ejection fraction is within the normal range. There is normal LV segmental wall motion. Transmitral Doppler flow pattern is Grade I-abnormal relaxation pattern.
--- NOTE | 2017-08-11 20:06 | CP.PCM.PN ---
Subjective - Date & Time of Evaluation Date of Evaluation: 08/11/17 Time of Evaluation: 22:22 - Subjective Subjective: PT note appreciated Seen by cardiology Objective - Vital Signs/Intake and Output Vital Signs (last 24 hours): Temp Pulse Resp BP Pulse Ox 98.5 F 88 16 124/98 H 98 08/11/17 16:00 08/11/17 17:00 08/11/17 17:00 08/11/17 17:00 08/11/17 17:00 - Medications Medications: Current Medications Acetaminophen (Tylenol 325mg Tab) 650 mg PO Q6 PRN PRN Reason: Pain, Mild (1-3) Amlodipine Besylate (Norvasc) 10 mg PO DAILY [facility] Last Admin: 08/11/17 08:19 Dose: 10 mg Nicotine (Nicoderm Cq) 1 patch TD DAILY [facility] Last Admin: 08/11/17 08:21 Dose: 1 patch - Labs Labs: 08/10/17 04:30 08/10/17 04:30 PT 11.1 Seconds (9.8-13.1) 08/08/17 13:20 INR 1.0 (0.9-1.2) 08/08/17 13:20 APTT 30.4 Seconds (25.6-37.1) 08/08/17 13:20 - Respiratory Exam Respiratory Exam: NORMAL BREATHING PATTERN - Cardiovascular Exam Cardiovascular Exam: REGULAR RHYTHM - GI/Abdominal Exam GI & Abdominal Exam: Normal Bowel Sounds Assessment and Plan - Assessment and Plan (Free Text) Assessment: R parietal occipital lobe hemorrhage MRI no underlying lesion Neurology Cardiology Monitor BP PT OT Hx HTN smoker
[2017-08-12 07:34] LABS: HEMOGLOBIN 12.9 g/dL (12.0-18.0); MEAN CELL VOLUME 89.6 fl (80.0-94.0); MEAN CORPUSCULAR HEMOGLOBIN 30.2 pg (27.0-31.0); MEAN CORPUSCULAR HGB CONC 33.7 g/dL (33.0-37.0); RBC 4.28 Mil/uL (4.40-5.90); RED CELL DISTRIBUTION WIDTH 16.2 % (11.5-14.5); WHITE BLOOD COUNT 7.3 K/uL (4.8-10.8)
[2017-08-12 08:00] LABS: ALB/GLOB RATIO 1.1 (1.0-2.1); ALBUMIN 3.8 g/dL (3.5-5.0); ALT/SGPT 23 U/L (21-72); AST/SGOT 28 U/L (17-59); BLOOD UREA NITROGEN 30 mg/dl (9-20); GFR AFRICAN-AMERICAN > 60; GFR NON-AFRICAN AMERICAN > 60
--- NOTE | 2017-08-12 19:45 | CP.PCM.PN ---
Subjective - Date & Time of Evaluation Date of Evaluation: 08/12/17 Time of Evaluation: 22:22 - Subjective Subjective: Above noted BP controlled PT today Objective - Vital Signs/Intake and Output Vital Signs (last 24 hours): Temp Pulse Resp BP Pulse Ox 98.2 F 76 23 118/70 94 L 08/12/17 12:00 08/12/17 12:00 08/12/17 12:00 08/12/17 12:00 08/12/17 12:00 Intake and Output: 08/12/17 08/13/17 18:59 06:59 Intake Total 240 Balance 240 - Medications Medications: Current Medications Acetaminophen (Tylenol 325mg Tab) 650 mg PO Q6 PRN PRN Reason: Pain, Mild (1-3) Amlodipine Besylate (Norvasc) 10 mg PO DAILY [facility] Last Admin: 08/12/17 08:13 Dose: 10 mg Nicotine (Nicoderm Cq) 1 patch TD DAILY [facility] Last Admin: 08/12/17 08:14 Dose: 1 patch - Labs Labs: 08/12/17 06:00 08/12/17 06:00 PT 11.1 Seconds (9.8-13.1) 08/08/17 13:20 INR 1.0 (0.9-1.2) 08/08/17 13:20 APTT 30.4 Seconds (25.6-37.1) 08/08/17 13:20 - Respiratory Exam Respiratory Exam: NORMAL BREATHING PATTERN - Cardiovascular Exam Cardiovascular Exam: REGULAR RHYTHM - GI/Abdominal Exam GI & Abdominal Exam: Normal Bowel Sounds Assessment and Plan - Assessment and Plan (Free Text) Assessment: R parietal occipital lobe hemorrhage MRI no underlying lesion Neurology Cardiology Monitor BP PT OT HTN smoker
[2017-08-13 08:31] LABS: HEMOGLOBIN 12.6 g/dL (12.0-18.0); MEAN CELL VOLUME 90.2 fl (80.0-94.0); MEAN CORPUSCULAR HEMOGLOBIN 29.4 pg (27.0-31.0); MEAN CORPUSCULAR HGB CONC 32.6 g/dL (33.0-37.0); RBC 4.29 Mil/uL (4.40-5.90); RED CELL DISTRIBUTION WIDTH 16.3 % (11.5-14.5); WHITE BLOOD COUNT 7.3 K/uL (4.8-10.8)
[2017-08-13 08:42] LABS: ALB/GLOB RATIO 1.1 (1.0-2.1); ALBUMIN 3.5 g/dL (3.5-5.0); ALT/SGPT 34 U/L (21-72); AST/SGOT 28 U/L (17-59); BLOOD UREA NITROGEN 30 mg/dl (9-20); CALCIUM 8.6 mg/dL (8.4-10.2); GFR AFRICAN-AMERICAN > 60; GFR NON-AFRICAN AMERICAN > 60
--- NOTE | 2017-08-13 16:22 | CP.PCM.PN ---
Subjective - Date & Time of Evaluation Date of Evaluation: 08/13/17 Time of Evaluation: 22:22 - Subjective Subjective: Above noted Objective - Vital Signs/Intake and Output Vital Signs (last 24 hours): Temp Pulse Resp BP Pulse Ox 98.6 F 76 19 102/60 84 L 08/13/17 12:00 08/13/17 12:00 08/13/17 12:00 08/13/17 12:00 08/13/17 12:00 Intake and Output: 08/13/17 08/13/17 06:59 18:59 Intake Total 240 Output Total 300 Balance -60 - Medications Medications: Current Medications Acetaminophen (Tylenol 325mg Tab) 650 mg PO Q6 PRN PRN Reason: Pain, Mild (1-3) Amlodipine Besylate (Norvasc) 10 mg PO DAILY [facility] Last Admin: 08/13/17 08:29 Dose: 10 mg Nicotine (Nicoderm Cq) 1 patch TD DAILY [facility] Last Admin: 08/13/17 08:30 Dose: 1 patch - Labs Labs: 08/13/17 08:00 08/13/17 08:00 PT 11.1 Seconds (9.8-13.1) 08/08/17 13:20 INR 1.0 (0.9-1.2) 08/08/17 13:20 APTT 30.4 Seconds (25.6-37.1) 08/08/17 13:20 - Respiratory Exam Respiratory Exam: NORMAL BREATHING PATTERN - Cardiovascular Exam Cardiovascular Exam: REGULAR RHYTHM - GI/Abdominal Exam GI & Abdominal Exam: Normal Bowel Sounds Assessment and Plan - Assessment and Plan (Free Text) Assessment: R parietal occipital lobe hemorrhage MRI no underlying lesion Neurology Cardiology Monitor BP PT OT HTN smoker
--- NOTE | 2017-08-14 01:41 | PN ---
CRITICAL CARE PROGRESS NOTE DATE: 08/13/2017 LOCATION: The patient in ICU, bed 433. TIME SPENT: 25 minutes. SUBJECTIVE: The patient is seen and evaluated at the bedside. Past medical, surgical, and social history reviewed. A 77-year-old male with no significant medical history in the past, on aspirin 81 mg, admitted with CVA, right parietal bleed, remained clinically stable, overnight uneventful, and telemetry sinus rhythm. OBJECTIVE: GENERAL: This morning; alert, awake, and out of bed to chair. VITAL SIGNS: Temperature 98.6, heart rate 76, blood pressure 102/60, and saturation 97% on 2 L nasal cannula. Intake and output noted. HEAD, EYES, EARS, NOSE AND THROAT: Reduced facial droop. CHEST: Bilateral breath sounds clear to auscultation. HEART: Rhythm regular. S1 and S2 normal. ABDOMEN: Bowel sounds present. Soft. EXTREMITIES: No clubbing or cyanosis. NEUROLOGIC: Motor weakness improved on the left arm and left leg. Deep tendon reflexes 2+ bilaterally. CURRENT MEDICATIONS: Nicotine patch daily, Norvasc 10 mg daily, and Tylenol 650 every 6 hours p.r.n. LABORATORY DATA: WBC 7.3, hemoglobin 12.6, hematocrit 38.7, and platelet count of 230. PT 11.1, INR 1, and PTT 30.4. SMA-7; sodium 141, potassium 4, chloride 102, CO2 of 31, total bilirubin 0.7, AST 28, ALT 34, alkaline phosphatase 49, total protein 6.7, and albumin 3.5. IMPRESSION AND PLAN: Status post cerebrovascular accident; intracerebral hematoma, stable; and hypertension, improved. Occupational therapy and physical therapy as tolerated. Deep venous thrombosis prophylaxis. Transferred to [address] [place] [address]. Jesus Johnson MD
[2017-08-14 06:00] LABS: HEMOGLOBIN 13.4 g/dL (12.0-18.0); MEAN CORPUSCULAR HEMOGLOBIN 30.4 pg (27.0-31.0); MEAN CORPUSCULAR HGB CONC 33.3 g/dL (33.0-37.0); RBC 4.42 Mil/uL (4.40-5.90); RED CELL DISTRIBUTION WIDTH 15.9 % (11.5-14.5); WHITE BLOOD COUNT 6.8 K/uL (4.8-10.8)
[2017-08-14 06:12] LABS: ALB/GLOB RATIO 1.1 (1.0-2.1); ALBUMIN 3.9 g/dL (3.5-5.0); ALT/SGPT 35 U/L (21-72); AST/SGOT 23 U/L (17-59); BLOOD UREA NITROGEN 28 mg/dl (9-20); CALCIUM 8.9 mg/dL (8.4-10.2); GFR AFRICAN-AMERICAN > 60; GFR NON-AFRICAN AMERICAN > 60
[2017-08-14 12:33] VITALS: RESP 20; O2SAT 96
[2017-08-14 16:14] VITALS: BP 135/83; PULSE 68; TEMP 98.4
--- NOTE | 2017-08-14 20:20 | CP.PCM.PN ---
Subjective - Date & Time of Evaluation Date of Evaluation: 08/14/17 Time of Evaluation: 22:22 - Subjective Subjective: Still unsteady gait Objective - Vital Signs/Intake and Output Vital Signs (last 24 hours): Temp Pulse Resp BP Pulse Ox 98.4 F 68 20 135/83 96 08/14/17 16:00 08/14/17 16:00 08/14/17 16:00 08/14/17 16:00 08/14/17 12:00 - Labs Labs: 08/14/17 04:50 08/14/17 04:50 PT 11.1 Seconds (9.8-13.1) 08/08/17 13:20 INR 1.0 (0.9-1.2) 08/08/17 13:20 APTT 30.4 Seconds (25.6-37.1) 08/08/17 13:20 - Respiratory Exam Respiratory Exam: NORMAL BREATHING PATTERN - Cardiovascular Exam Cardiovascular Exam: REGULAR RHYTHM - GI/Abdominal Exam GI & Abdominal Exam: Normal Bowel Sounds Assessment and Plan - Assessment and Plan (Free Text) Assessment: R parietal occipital lobe hemorrhage MRI no underlying lesion Neurology Cardiology Monitor BP PT OT HTN smoker
== END 2017-08-14 17:07 | DRG 65 ==
LOC: H.ER 12:53 → H.ERHOLD 13:36 → H.ICU/CCU 14:58
PROVIDERS: ADMIT Family Medicine Geriatric Medicine; ATTEND Family Medicine Geriatric Medicine
DX: I61.1 Nontraumatic intracerebral hemorrhage in hemisphere, cortical (principal); G81.94 Hemiplegia, unspecified affecting left nondominant side; I69.192 Facial weakness following nontraumatic intracerebral hemorrhage; E86.0 Dehydration; I10 Essential (primary) hypertension; R79.89 Other specified abnormal findings of blood chemistry; F17.210 Nicotine dependence, cigarettes, uncomplicated; Z79.82 Long term (current) use of aspirin

== ENCOUNTER 2017-08-14 16:36 | Inpatient (IN) | payer MEDICARE, OTHER ==
[2017-08-14 16:42] VITALS: BMI 18.9
--- NOTE | 2017-08-15 13:19 | PSY.TMCNF ---
Nursing - Vital Signs Vital Signs (Last 8 hours): Vital Signs 08/15/17 08/15/17 08/15/17 07:46 08:09 09:45 Temperature 97.7 F Pulse Rate 70 78 80 Respiratory 20 Rate Blood Pressure 155/75 H 131/75 O2 Sat by Pulse 97 Oximetry 08/15/17 12:07 Temperature 97.7 F Pulse Rate 78 Respiratory 20 Rate Blood Pressure 131/75 O2 Sat by Pulse Oximetry - Precautions: Precautions: Fall Prevention - Medications/Other Issues Comment: with redness noted in the sacral area consult with wound care nurse discomfort in the toenails - Consults Comment: Dr Smith,DR Newton ,DR Bryant - Wound Sacrum Wound Type: Other Wound Stage: STAGE I Wound Shape: Irregular Wound Edges: Closed Tunneling: No Undermining: No Wound Bed Greatest Portion: Red (Granulation) Wound Bed Lesser Portion: Red (Granulation) Periwound: Intact Wound Drainage Amount: None Wound General Appearance: Clean/Dry Wound Dressing Status: Open to air Comment: wound care on consult intact protective cream applied - Toileting Toileting: Minimal Assistance - Bladder Management Bladder Pattern: Normal Voiding Method: Toilet, Urinal Bladder Management: Contact Guard Frequency of Accidents: 0 - Bowel Management Bowel Pattern: Normal Comment: 0 Bowel Management: Contact Guard Frequency of Accidents: o - Transfers Transfers: Minimal Assistance - ADL's ADL's: Minimal Assistance - Pain Management Comments: denies any pain - Patient/Family Teaching Comments: safety fall post cva medication teachings - Goals/Time Frame Comments: as per multidiciplinary paln of care - Provider Provider: Nikunj Miranda Physical Therapy - Bed Mobility Bed Mobility: Modified Independent, Supervision, Verbal Cues - Transfers Wheelchair to Mat: Supervision Sit to Stand: Supervision - Ambulation Level of Assistance: Supervision, Verbal Cues, Contact Guard Distance (ft.): 200 Assistive Devices: N/A Orthoses: n/a Comment: -200 feet, level surface, no device, supervision. -slight increase in lateral sway at times, instances of impaired foot placement especially with progression towards right side. -patient has impaired balance when he turns his head to talk to someone or therapist next to him. -at times CG for stability such as when standing up or when making turns - Stair Negotiation Stairs: Level of Assistance: Supervision, Verbal Cues Comment: 6 6 inch steps with B rails with self-selected reciprocal pattern, supervision, no cues required - Standing Balance Static Stand: Supervision Dynamic Stand: Supervision, Contact Guard Assist Comment: THORNE BALANCE SCORE 39/56 - low risk of falls - Pain Pain (assessed during therapy session): 0 Comment: pt denies pain - Insight/Carryover Insight/Carryover: Good - Patient/Family Education Comment: -safety, therapy schedule, therapy goals, POC, stroke recovery, orientation to unit, use of call ladd, importance of requesting assistance, importance of OOB - Assessment/Plan Assessment: Mr. Ron is a 77 year old male admitted to [facility] acute rehab on s/p CVA. Patient requires low complexity decision making and condition is stable. PT POC impacted by history of HTN, smoking and lack of social support. Pt presents with impaired balance, poor insight into deficits and some left sided LE weakness/impaired coordination. Pt recommends skilled therapy to address above listed impairments to maximize safety and independence with all mobility s/p CVA prior to community discharge. PT recommends home discharge with intermittent supervision and home services upon completion of full length of stay in acute rehab. - Goals Timeframe: 7 days Goals: -1 flight with single rail with supervision. -distant supervision in door surfaces x 500 feet without device. -supervision outdoor surfaces x 200 feet without device. -mod I with all transfers. -I with all bed/mat mobility - Provider Therapist: Seema Monson PT, DPT License Number: [id number] Occupational Therapy - Arousal/Attention/Orientation Patient Orientation: Person, Place, Time, Appropriate to Age, Appropriate to Situation - Pain Pain (assessed during therapy session): 0 Comment: pt denies pain - Insight/Carryover Insight/Carryover: Good - Patient/Family Education Comment: -safety, therapy schedule, therapy goals, POC, stroke recovery, orientation to unit, use of call ladd, importance of requesting assistance, importance of OOB - Assessment/Plan Assessment: Mr. Ron is a 77 year old male admitted to [facility] acute rehab on s/p CVA. Patient requires low complexity decision making and condition is stable. PT POC impacted by history of HTN, smoking and lack of social support. Pt presents with impaired balance, poor insight into deficits and some left sided LE weakness/impaired coordination. Pt recommends skilled therapy to address above listed impairments to maximize safety and independence with all mobility s/p CVA prior to community discharge. PT recommends home discharge with intermittent supervision and home services upon completion of full length of stay in acute rehab. - Goals Timeframe: 7 days Goals: -1 flight with single rail with supervision. -distant supervision in door surfaces x 500 feet without device. -supervision outdoor surfaces x 200 feet without device. -mod I with all transfers. -I with all bed/mat mobility Speech Therapy - Plan Assessment: Mr. Ron is a 77 year old male admitted to [facility] acute rehab on s/p CVA. Patient requires low complexity decision making and condition is stable. PT POC impacted by history of HTN, smoking and lack of social support. Pt presents with impaired balance, poor insight into deficits and some left sided LE weakness/impaired coordination. Pt recommends skilled therapy to address above listed impairments to maximize safety and independence with all mobility s/p CVA prior to community discharge. PT recommends home discharge with intermittent supervision and home services upon completion of full length of stay in acute rehab. Recreational Therapy - Assessment Assessment/Plan: Mr. Ron is a 77 year old male admitted to [facility] acute rehab on 08/14/17 s/p CVA. Patient requires low complexity decision making and condition is stable. PT POC impacted by history of HTN, smoking and lack of social support. Pt presents with impaired balance, poor insight into deficits and some left sided LE weakness/impaired coordination. Pt recommends skilled therapy to address above listed impairments to maximize safety and independence with all mobility s/p CVA prior to community discharge. PT recommends home discharge with intermittent supervision and home services upon completion of full length of stay in acute rehab. Nutrition - Current Diet Current Diet/ Supplement/ Feedings: Heart healthy diet - Appetite Percent Meal Consumed: 75-100% - Comments Comments: safety fall post cva medication teachings - Assessment/Goals/Time Frame Assessment/Goals/Time Frame: with redness noted in the sacral area consult with wound care nurse discomfort in the toenails - Provider Provider: Luz Pang RD Case Management - Discharge Plan Discharge Plan: Home alone
--- NOTE | 2017-08-15 14:01 | PCM.OPOC ---
Physiatry Overall Plan of Care - Overall Plan of Care Estimated Length of Stay in Weeks: 1 Rehab Impairment: Mobility, Gait, Balance, Coordination Etiologic Diagnosis: Cerebrovascular Accident Rehab/Medical Prognosis: Good - Anticipated Interventions Physical Therapy:: Yes Occupational Therapy:: Yes Speech Therapy:: No Recreational Therapy:: Yes - Therapy Goals Bed Mobility: Independent Ambulation: Independent Functional Positional Changes:: Independent - Discharge Plan Identification of Barriers to Discharge: Home Situation Discharge Destination: Home
--- NOTE | 2017-08-15 14:06 | CP.PCM.CON ---
History of Present Illness - History of Present Illness History of Present Illness: Dr Smith PMR consultation on Kang Ron, born 1940, who is right hand dominant and is being admitted to [facility] for acute inpatient rehabilitation following a right ICH with left HP. Minimal neuro deficit at this time but clear functional deficit noted with a decrease in gait, balance and safety Previously highly independent Review of Systems - Constitutional Constitutional: absent: Anorexia, Chills - EENT Eyes: absent: Blind Spots, Change in Vision Nose/Mouth/Throat: absent: Nasal Congestion - Cardiovascular Cardiovascular: absent: Chest Pain - Respiratory Respiratory: absent: Dyspnea, Hemoptysis - Gastrointestinal Gastrointestinal: absent: Belching, Constipation - Musculoskeletal Musculoskeletal: absent: Back Pain - Neurological Neurological: absent: Abnormal Movements, Dizziness Past Patient History - Past Medical History & Family History Past Medical History?: Yes - Past Social History Smoking Status: Heavy Smoker > 10 Cigarettes Daily Drugs: Denies Home Situation {Lives}: Alone ([address]) - CARDIAC Hx Hypertension: Yes - NEUROLOGICAL HX Cerebrovascular Accident: Yes (08/08/2017) - HEMATOLOGICAL/ONCOLOGICAL Hx AIDS: No Hx Human Immunodeficiency Virus (HIV): No - MUSCULOSKELETAL/RHEUMATOLOGICAL Hx Falls: No - PSYCHIATRIC Hx Substance Use: No - SURGICAL HISTORY Other/Comment: Dental Procedure ( removal of implant due to gum infection ) - ANESTHESIA Hx Anesthesia: Yes Hx Anesthesia Reactions: No Hx Malignant Hyperthermia: No Has any member of the family had a problem w/ anesthesia?: No Meds Allergies/Adverse Reactions: Allergies Allergy/AdvReac Type Severity Reaction Status Date / Time No Known Allergies Allergy Verified 08/14/17 17:31 - Medications Medications: Current Medications Acetaminophen (Tylenol 325mg Tab) 650 mg PO Q6 PRN PRN Reason: Pain 1-10 Amlodipine Besylate (Norvasc) 10 mg PO DAILY [facility] Last Admin: 08/15/17 08:09 Dose: 10 mg Nicotine (Nicoderm Cq) 1 patch TD DAILY [facility] Last Admin: 08/15/17 08:09 Dose: 1 patch Physical Exam - Constitutional Appears: Well, Non-toxic, No Acute Distress - Head Exam Head Exam: ATRAUMATIC, NORMAL INSPECTION, NORMOCEPHALIC - Eye Exam Eye Exam: EOMI - ENT Exam ENT Exam: Mucous Membranes Moist - Respiratory Exam Respiratory Exam: NORMAL BREATHING PATTERN - GI/Abdominal Exam GI & Abdominal Exam: absent: Distended - Extremities Exam Extremities exam: Negative for: pedal edema - Neurological Exam Neurological exam: Alert, CN II-XII Intact, Oriented x3 - Psychiatric Exam Psychiatric exam: Normal Affect, Normal Mood - Skin Skin Exam: Normal Color, Warm Results - Vital Signs Recent Vital Signs: Last Vital Signs Temp 97.7 F 08/15/17 12:07 Pulse 78 08/15/17 12:07 Resp 20 08/15/17 12:07 BP 131/75 08/15/17 12:07 Pulse Ox 97 08/15/17 07:46 Assessment & Plan - Assessment and Plan (Free Text) Assessment: Kang is a 77 year old male with right ICH and left HP who has minimal neuro deficits but with functional limitations continue PT/OT team conf for d/c planning GI no constipation or diarrhea pain controlled ELOS 1 week impairment code 01.1
--- NOTE | 2017-08-15 18:30 | CON ---
DATE: NEUROLOGY CONSULTATION REASON FOR CONSULTATION: Intracerebral hemorrhage. HISTORY OF PRESENT ILLNESS: The patient is a 77-year-old male who was admitted to rehabilitation facility after he was admitted to the hospital with facial asymmetry and left-sided weakness. The patient had a CT scan of the head done, which shows right parietal hemorrhage. Subsequently, he had MRI of the brain with and without contrast, which did not show any underlying pathology. The patient denies to have any headache or dizziness. He says he is a little steady when he walks. He said his weakness in the left side is better. REVIEW OF SYSTEMS: Denies any headache, dizziness, chest pain, shortness of breath, abdominal pain, constipation, diarrhea, dysuria, pyuria, cough or sputum production. PAST MEDICAL HISTORY: None. CURRENT MEDICATIONS: Include amlodipine 10 mg daily, Tylenol p.r.n., and nicotine patch. ALLERGIES: NO KNOWN DRUG ALLERGIES. SOCIAL HISTORY: The patient is a smoker. Denies use of any alcohol or illicit drugs. FAMILY HISTORY: Reviewed and noncontributory to the case. PHYSICAL EXAMINATION: GENERAL: The patient is an elderly pleasant male, sitting, in no acute distress. VITAL SIGNS: Blood pressure this early childhood coordinator was 155/75, at present it is 127/80; heart rate is 80 per minute; breathing at the rate of 16 per minute; and temperature is 97.7 degrees Fahrenheit. HEENT: Normocephalic and atraumatic. NECK: Supple. There are no carotid bruits. LUNGS: Clear. CARDIOVASCULAR: S1 and S2 audible with no murmurs. ABDOMEN: Soft and nontender with bowel sounds present. NEUROLOGIC: Mental status: The patient is awake and alert, oriented to time, place, person. Speech is fluent. Naming and repetition is normal. Memory and cognition are intact. Cranial nerve examination; pupils are 3 mm, bilaterally reactive to light. Visual hill are full. Extraocular movements are intact. There is no facial asymmetry. Palate is upgoing bilaterally and tongue is midline. Motor examination: Tone is normal. Power is 5/5 bilaterally in all extremities. There is left-sided pronator drift noted. Gait is slightly unsteady. Sensory examination intact to soft touch and pinprick. LABORATORY DATA: Reviewed none. IMPRESSION: Right parietooccipital lobe hemorrhage, which is possibly secondary to hypertension. There is no underlying pathology was found on magnetic resonance imaging. RECOMMENDATIONS: 1. The patient's blood pressure needs to be monitored closely. The patient had one reading of 157 systolic pressure; however, the remaining readings are fine. 2. The patient's left-sided weakness has improved; however, the patient is slightly unsteady when he walks. 3. The patient will have physical therapy for gait and balance. 4. The patient was counseled to stop smoking. 5. Please continue supportive care and the treatment. Thank you for the opportunity to participate in the care of this patient. Jake Bryant MD
--- NOTE | 2017-08-15 20:51 | CP.PCM.HP ---
History of Present Illness - History of Present Illness History of Present Illness: 77 yo admitted for acute rehab 2 to ICH Present on Admission - Present on Admission Any Indicators Present on Admission: No Past Patient History - Past Medical History & Family History Past Medical History?: Yes - Past Social History Smoking Status: Heavy Smoker > 10 Cigarettes Daily Drugs: Denies Home Situation {Lives}: Alone ([address]) - CARDIAC Hx Hypertension: Yes - NEUROLOGICAL HX Cerebrovascular Accident: Yes (08/08/2017) - HEMATOLOGICAL/ONCOLOGICAL Hx AIDS: No Hx Human Immunodeficiency Virus (HIV): No - MUSCULOSKELETAL/RHEUMATOLOGICAL Hx Falls: No - PSYCHIATRIC Hx Substance Use: No - SURGICAL HISTORY Other/Comment: Dental Procedure ( removal of implant due to gum infection ) - ANESTHESIA Hx Anesthesia: Yes Hx Anesthesia Reactions: No Hx Malignant Hyperthermia: No Has any member of the family had a problem w/ anesthesia?: No Meds Allergies/Adverse Reactions: Allergies Allergy/AdvReac Type Severity Reaction Status Date / Time No Known Allergies Allergy Verified 08/14/17 17:31 Physical Exam - Respiratory Exam Respiratory Exam: NORMAL BREATHING PATTERN - Cardiovascular Exam Cardiovascular Exam: REGULAR RHYTHM - GI/Abdominal Exam GI & Abdominal Exam: Normal Bowel Sounds Results - Vital Signs Recent Vital Signs: Last Vital Signs Temp 98.2 F 08/15/17 20:05 Pulse 71 08/15/17 20:05 Resp 20 08/15/17 20:05 BP 152/72 H 08/15/17 20:05 Pulse Ox 98 08/15/17 20:05 Assessment & Plan - Assessment and Plan (Free Text) Assessment: R parietal occipital lobe hemorrhage MRI no underlying lesion Neurology Cardiology Physiatry Monitor BP PT OT HTN smoker - Date & Time Date: 08/15/17 Time: 22:22
--- NOTE | 2017-08-16 19:41 | CP.PCM.PN ---
Subjective - Date & Time of Evaluation Date of Evaluation: 08/16/17 Time of Evaluation: 22:22 - Subjective Subjective: Above noted Objective - Vital Signs/Intake and Output Vital Signs (last 24 hours): Temp Pulse Resp BP Pulse Ox 97.7 F 78 20 138/81 95 08/16/17 07:39 08/16/17 11:49 08/16/17 07:39 08/16/17 08:40 08/16/17 07:39 - Medications Medications: Current Medications Acetaminophen (Tylenol 325mg Tab) 650 mg PO Q6 PRN PRN Reason: Pain 1-10 Amlodipine Besylate (Norvasc) 10 mg PO DAILY [facility] Last Admin: 08/16/17 08:40 Dose: 10 mg Nicotine (Nicoderm Cq) 1 patch TD DAILY [facility] Last Admin: 08/16/17 08:39 Dose: 1 patch - Respiratory Exam Respiratory Exam: NORMAL BREATHING PATTERN - Cardiovascular Exam Cardiovascular Exam: REGULAR RHYTHM - GI/Abdominal Exam GI & Abdominal Exam: Normal Bowel Sounds Assessment and Plan - Assessment and Plan (Free Text) Assessment: R parietal occipital lobe hemorrhage MRI no underlying lesion Neurology Cardiology Physiatry Monitor BP PT OT HTN smoker
--- NOTE | 2017-08-17 09:51 | CP.PCM.CON ---
History of Present Illness - History of Present Illness History of Present Illness: Consult Note- Dr. Luis 77 year old male seen and evaluated at bedside for left 5th discolored toe nail and hallux enlongated bilaterally. Patient is seen resting comfortably in bed, in NAD, and AA0x3. Patient reports he has no pain to the lower extremity. Reports noticing the discolored 5th toe after his sister pointed it out to him. Does not know how long it's been there. Denies any trauma to the digit. 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 Reports has no issues with ambulating. Wears comfortable sandals or shoes with ambulation. Denies any nausea, fever, shortness of breath, chest pain, or chills. Past Patient History - Past Medical History & Family History Past Medical History?: Yes - Past Social History Smoking Status: Heavy Smoker > 10 Cigarettes Daily Drugs: Denies Home Situation {Lives}: Alone ([address]) - CARDIAC Hx Hypertension: Yes - NEUROLOGICAL HX Cerebrovascular Accident: Yes (08/08/2017) - HEMATOLOGICAL/ONCOLOGICAL Hx AIDS: No Hx Human Immunodeficiency Virus (HIV): No - MUSCULOSKELETAL/RHEUMATOLOGICAL Hx Falls: No - PSYCHIATRIC Hx Substance Use: No - SURGICAL HISTORY Other/Comment: Dental Procedure ( removal of implant due to gum infection ) - ANESTHESIA Hx Anesthesia: Yes Hx Anesthesia Reactions: No Hx Malignant Hyperthermia: No Has any member of the family had a problem w/ anesthesia?: No Meds Allergies/Adverse Reactions: Allergies Allergy/AdvReac Type Severity Reaction Status Date / Time No Known Allergies Allergy Verified 08/14/17 17:31 - Medications Medications: Current Medications Acetaminophen (Tylenol 325mg Tab) 650 mg PO Q6 PRN PRN Reason: Pain 1-10 Amlodipine Besylate (Norvasc) 10 mg PO DAILY [facility] Last Admin: 08/17/17 08:29 Dose: 10 mg Nicotine (Nicoderm Cq) 1 patch TD DAILY [facility] Last Admin: 08/17/17 08:28 Dose: 1 patch Physical Exam - Constitutional Appears: Well, Non-toxic, No Acute Distress - Extremities Exam Extremities exam: Negative for: calf tenderness Additional comments: VASC: Cap refill time: < 3 seconds to all digits. Skin temperature warm to cool from proximal to distal. no pitting or non-pitting edema noted to lower extremity DERM: no open lesions, no inter digital maceration, elongated, incurved, hyperkeratotic with subungal debris to the halluces nail plate bilaterally, darken discoloration at the proximal nail plate consistent with subungual hematoma to the left 5th digit nail plate, no lifting of nails, no clinical suspicion of active infection NEURO: Epicritic and protective sensation intact ORTHO: no pain with palpation to the entire lower extremity including nail plates 1-5 bilaterally, no pain during AROM and PROM at the AJ or MTPJ - Neurological Exam Neurological exam: Alert, Oriented x3 - Psychiatric Exam Psychiatric exam: Normal Affect, Normal Mood Results - Vital Signs Recent Vital Signs: Last Vital Signs Temp 97.5 F L 08/17/17 08:32 Pulse 69 08/17/17 08:32 Resp 18 08/17/17 08:32 BP 137/83 08/17/17 08:32 Pulse Ox 98 08/17/17 08:32 Assessment & Plan - Assessment and Plan (Free Text) Assessment: 77 year old male with left 5th digit subungual hematoma and hypertrophic, elongated with onychomycosis halluces bilaterally. Plan: Patient seen and evaluated Discussed plan in detail with attending Dr. Luis Labs, vitals reviewed 5th digit subungual hematoma stable. Do not need removal toenail. Patient is having no pain, nail plate is adhere to nail bed 100% without lifting. ADvised for nail to grow out. Enlongated nails x10 debrided to normal length and thickness using a nail nipper without incident. Patient tolerated the procedure well Patient to f/u up Dr. Luis for onchymotic halluces treatment as outpatient and f/u of left subungal hematoma 5th digit Patient is stable per podiatry standpoint Will sign off Thank you for allowing us to take part in patient's care Please reconsult as needed
--- NOTE | 2017-08-17 14:53 | PN ---
DATE: 08/17/2017 SUBJECTIVE: The patient is lying on the bed in no acute distress. Denies having any headache or dizziness. PHYSICAL EXAMINATION: VITAL SIGNS: His blood pressure is 137/83, heart rate is 69 per minute, breathing at a rate of 16 per minute, temperature is 97.5 degrees Fahrenheit. HEENT: Normocephalic and atraumatic. NECK: Supple. There are no carotid bruits. LUNGS: Clear. CVS: S1 and S2 audible. No murmurs. ABDOMEN: Soft. Nontender. Bowel sounds present. NEUROLOGIC: Mental status: The patient is awake and alert, oriented to time, place, person. Speech is fluent. Naming and repetition is normal. Memory and cognition are intact. Cranial nerve examination: Pupils are 3 mm, bilaterally reactive to light. Visual hill are full. Extraocular movements are intact. There is slight decreased nasolabial fold on the left side. Palate is upgoing bilaterally. Tongue is midline. Motor examination: Tone is normal. Power is 5/5 bilaterally. There is mild pronator drift in the left side. Cerebellar examination: Finger to nose shows no dysmetria. IMPRESSION: Cerebrovascular accident with right parietal hemorrhage, likely secondary to hypertension. RECOMMENDATIONS: 1. The patient's blood pressure is better controlled. 2. The patient's left-sided weakness has continued to improve as well as his gait imbalance is improving. 3. The patient to continue to have physical therapy for gait and balance. 4. Please continue the treatment and supportive care. Thank you for the opportunity to participate in the care of this patient. Jake Bryant MD
--- NOTE | 2017-08-17 17:24 | CP.PCM.PN ---
Subjective - Date & Time of Evaluation Date of Evaluation: 08/17/17 Time of Evaluation: 22:22 - Subjective Subjective: Doing well Objective - Vital Signs/Intake and Output Vital Signs (last 24 hours): Temp Pulse Resp BP Pulse Ox 97.5 F L 69 18 137/83 98 08/17/17 08:32 08/17/17 08:32 08/17/17 08:32 08/17/17 08:32 08/17/17 08:32 - Medications Medications: Current Medications Acetaminophen (Tylenol 325mg Tab) 650 mg PO Q6 PRN PRN Reason: Pain 1-10 Amlodipine Besylate (Norvasc) 10 mg PO DAILY [facility] Last Admin: 08/17/17 08:29 Dose: 10 mg Nicotine (Nicoderm Cq) 1 patch TD DAILY [facility] Last Admin: 08/17/17 08:28 Dose: 1 patch - Respiratory Exam Respiratory Exam: NORMAL BREATHING PATTERN - Cardiovascular Exam Cardiovascular Exam: Tachycardia, REGULAR RHYTHM - GI/Abdominal Exam GI & Abdominal Exam: Normal Bowel Sounds Assessment and Plan - Assessment and Plan (Free Text) Assessment: R parietal occipital lobe hemorrhage ICH MRI no underlying lesion Neurology Cardiology Physiatry Monitor BP PT OT HTN smoker
--- NOTE | 2017-08-18 11:43 | CP.PCM.PN ---
Subjective - Date & Time of Evaluation Date of Evaluation: 08/18/17 Time of Evaluation: 11:42 - Subjective Subjective: stable Objective - Vital Signs/Intake and Output Vital Signs (last 24 hours): Temp Pulse Resp BP Pulse Ox 96.8 F L 63 20 147/59 L 95 08/18/17 08:35 08/18/17 08:35 08/18/17 08:35 08/18/17 08:35 08/18/17 08:35 - Medications Medications: Current Medications Acetaminophen (Tylenol 325mg Tab) 650 mg PO Q6 PRN PRN Reason: Pain 1-10 Amlodipine Besylate (Norvasc) 10 mg PO DAILY [facility] Last Admin: 08/18/17 08:24 Dose: 10 mg Nicotine (Nicoderm Cq) 1 patch TD DAILY [facility] Last Admin: 08/18/17 08:24 Dose: 1 patch Assessment and Plan - Assessment and Plan (Free Text) Plan: Hemodynamically stable No new cardiology recommendations
--- NOTE | 2017-08-18 15:28 | CP.PCM.PN ---
Subjective - Date & Time of Evaluation Date of Evaluation: 08/18/17 Time of Evaluation: 15:27 - Subjective Subjective: Patient seen in PT gym, doing more advanced closed chain exercises and making great progress continue current care denies sob/cp or headaches Objective - Vital Signs/Intake and Output Vital Signs (last 24 hours): Temp Pulse Resp BP Pulse Ox 96.8 F L 63 20 147/59 L 95 08/18/17 08:35 08/18/17 08:35 08/18/17 08:35 08/18/17 08:35 08/18/17 08:35 - Medications Medications: Current Medications Acetaminophen (Tylenol 325mg Tab) 650 mg PO Q6 PRN PRN Reason: Pain 1-10 Amlodipine Besylate (Norvasc) 10 mg PO DAILY [facility] Last Admin: 08/18/17 08:24 Dose: 10 mg Nicotine (Nicoderm Cq) 1 patch TD DAILY [facility] Last Admin: 08/18/17 08:24 Dose: 1 patch
--- NOTE | 2017-08-18 19:00 | CP.PCM.PN ---
Subjective - Date & Time of Evaluation Date of Evaluation: 08/18/17 Time of Evaluation: 22:22 - Subjective Subjective: Above noted Objective - Vital Signs/Intake and Output Vital Signs (last 24 hours): Temp Pulse Resp BP Pulse Ox 96.8 F L 63 20 147/59 L 95 08/18/17 08:35 08/18/17 08:35 08/18/17 08:35 08/18/17 08:35 08/18/17 08:35 - Medications Medications: Current Medications Acetaminophen (Tylenol 325mg Tab) 650 mg PO Q6 PRN PRN Reason: Pain 1-10 Amlodipine Besylate (Norvasc) 10 mg PO DAILY [facility] Last Admin: 08/18/17 08:24 Dose: 10 mg Nicotine (Nicoderm Cq) 1 patch TD DAILY [facility] Last Admin: 08/18/17 08:24 Dose: 1 patch - Respiratory Exam Respiratory Exam: NORMAL BREATHING PATTERN - Cardiovascular Exam Cardiovascular Exam: REGULAR RHYTHM - GI/Abdominal Exam GI & Abdominal Exam: Normal Bowel Sounds Assessment and Plan - Assessment and Plan (Free Text) Assessment: R parietal occipital lobe hemorrhage ICH MRI no underlying lesion Neurology Cardiology Physiatry Monitor BP PT OT HTN smoker
--- NOTE | 2017-08-19 05:57 | CP.PCM.PN ---
Subjective - Date & Time of Evaluation Date of Evaluation: 08/19/17 Time of Evaluation: 22:22 - Subjective Subjective: Doing well Objective - Vital Signs/Intake and Output Vital Signs (last 24 hours): Temp Pulse Resp BP Pulse Ox 97.7 F 73 20 132/72 97 08/18/17 20:23 08/18/17 20:23 08/18/17 20:23 08/18/17 20:23 08/18/17 20:23 - Medications Medications: Current Medications Acetaminophen (Tylenol 325mg Tab) 650 mg PO Q6 PRN PRN Reason: Pain 1-10 Amlodipine Besylate (Norvasc) 10 mg PO DAILY [facility] Last Admin: 08/18/17 08:24 Dose: 10 mg Nicotine (Nicoderm Cq) 1 patch TD DAILY [facility] Last Admin: 08/18/17 08:24 Dose: 1 patch - Respiratory Exam Respiratory Exam: NORMAL BREATHING PATTERN - Cardiovascular Exam Cardiovascular Exam: REGULAR RHYTHM - GI/Abdominal Exam GI & Abdominal Exam: Normal Bowel Sounds Assessment and Plan - Assessment and Plan (Free Text) Assessment: ICH R parietal occipital lobe hemorrhage MRI no underlying lesion Neurology Cardiology Physiatry Monitor BP PT OT HTN smoker Hx vit B12 def Labs
[2017-08-19 10:32] LABS: BASO # 0.1 K/uL (0.0-0.2); BASO % 1.3 % (0.0-2.0); EOS # 0.4 K/uL (0.0-0.7); EOS % 4.9 % (0.0-4.0); HEMOGLOBIN 13.1 g/dL (12.0-18.0); LYMPH # 1.1 K/uL (1.0-4.3); LYMPH % 14.2 % (20.0-40.0); MEAN CELL VOLUME 90.5 fl (80.0-94.0); MEAN CORPUSCULAR HGB CONC 33.2 g/dL (33.0-37.0); MEAN PLATELET VOLUME 9.4 fl (7.2-11.7); MONO # 0.8 K/uL (0.0-0.8); MONO % 9.8 % (0.0-10.0); NEUT # 5.4 K/uL (1.8-7.0); NEUT % 69.8 % (50.0-75.0); NRBC % 0.1 % (0.0-0.0); RBC 4.37 Mil/uL (4.40-5.90); WHITE BLOOD COUNT 7.7 K/uL (4.8-10.8)
[2017-08-19 10:51] LABS: ALB/GLOB RATIO 1.1 (1.0-2.1); ALT/SGPT 23 U/L (21-72); AST/SGOT 21 U/L (17-59); BLOOD UREA NITROGEN 25 mg/dl (9-20); CALCIUM 9.1 mg/dL (8.4-10.2); GFR AFRICAN-AMERICAN > 60; GFR NON-AFRICAN AMERICAN > 60
--- NOTE | 2017-08-20 15:43 | CP.PCM.PN ---
Subjective - Date & Time of Evaluation Date of Evaluation: 08/20/17 Time of Evaluation: 22:22 - Subjective Subjective: Above noted Objective - Vital Signs/Intake and Output Vital Signs (last 24 hours): Temp Pulse Resp BP Pulse Ox 97.9 F 73 20 148/88 99 08/20/17 09:04 08/20/17 09:05 08/20/17 09:04 08/20/17 09:05 08/20/17 09:04 - Medications Medications: Current Medications Acetaminophen (Tylenol 325mg Tab) 650 mg PO Q6 PRN PRN Reason: Pain 1-10 Amlodipine Besylate (Norvasc) 10 mg PO DAILY [facility] Last Admin: 08/20/17 09:05 Dose: 10 mg Nicotine (Nicoderm Cq) 1 patch TD DAILY [facility] Last Admin: 08/20/17 09:05 Dose: 1 patch - Labs Labs: 08/19/17 08:59 08/19/17 08:59 - Respiratory Exam Respiratory Exam: NORMAL BREATHING PATTERN - Cardiovascular Exam Cardiovascular Exam: REGULAR RHYTHM - GI/Abdominal Exam GI & Abdominal Exam: Normal Bowel Sounds Assessment and Plan - Assessment and Plan (Free Text) Assessment: ICH R parietal occipital lobe hemorrhage MRI no underlying lesion Neurology Cardiology Physiatry Monitor BP PT OT HTN smoker Hx vit B12 def Labs
--- NOTE | 2017-08-21 18:07 | CP.PCM.PN ---
Subjective - Date & Time of Evaluation Date of Evaluation: 08/21/17 Time of Evaluation: 18:05 - Subjective Subjective: Patient seen in the room, doing ok now had an episode of hypotension earlier today cardiology requested 1 day of holding therapies and adjustments made to BP meds in bed now no complaints and looking forward to d/c home 08/23/17 did not want to wait another day so he could get a day of therapy prior to d/c home he was doing very well in therapies and should be safe for d/c Objective - Vital Signs/Intake and Output Vital Signs (last 24 hours): Temp Pulse Resp BP Pulse Ox 97.7 F 91 H 18 102/72 95 08/21/17 08:12 08/21/17 10:03 08/21/17 08:12 08/21/17 10:03 08/21/17 10:03 - Medications Medications: Current Medications Acetaminophen (Tylenol 325mg Tab) 650 mg PO Q6 PRN PRN Reason: Pain 1-10 Amlodipine Besylate (Norvasc) 5 mg PO DAILY [facility] Nicotine (Nicoderm Cq) 1 patch TD DAILY [facility] Last Admin: 08/21/17 08:13 Dose: 1 patch - Labs Labs: 08/19/17 08:59 08/19/17 08:59
--- NOTE | 2017-08-21 20:12 | CP.PCM.PN ---
Subjective - Date & Time of Evaluation Date of Evaluation: 08/21/17 Time of Evaluation: 22:22 - Subjective Subjective: Above noted Objective - Vital Signs/Intake and Output Vital Signs (last 24 hours): Temp Pulse Resp BP Pulse Ox 97.7 F 91 H 18 102/72 95 08/21/17 08:12 08/21/17 10:03 08/21/17 08:12 08/21/17 10:03 08/21/17 10:03 - Medications Medications: Current Medications Acetaminophen (Tylenol 325mg Tab) 650 mg PO Q6 PRN PRN Reason: Pain 1-10 Amlodipine Besylate (Norvasc) 5 mg PO DAILY [facility] Nicotine (Nicoderm Cq) 1 patch TD DAILY [facility] Last Admin: 08/21/17 08:13 Dose: 1 patch - Labs Labs: 08/19/17 08:59 08/19/17 08:59 - Respiratory Exam Respiratory Exam: NORMAL BREATHING PATTERN - Cardiovascular Exam Cardiovascular Exam: REGULAR RHYTHM - GI/Abdominal Exam GI & Abdominal Exam: Normal Bowel Sounds Assessment and Plan - Assessment and Plan (Free Text) Assessment: ICH R parietal occipital lobe hemorrhage MRI no underlying lesion Neurology Cardiology Physiatry Monitor BP PT OT HTN smoker Hx vit B12 def Labs
--- NOTE | 2017-08-22 13:17 | PSY.TMCNF ---
Nursing - Vital Signs Vital Signs (Last 8 hours): Vital Signs 08/22/17 08/22/17 08/22/17 08:06 09:00 09:15 Temperature 98 F Pulse Rate 72 72 79 Respiratory 19 Rate Blood Pressure 128/79 128/79 128/79 O2 Sat by Pulse 98 Oximetry Pain: 0 - Precautions: Precautions: Fall Prevention - Medications/Other Issues Comment: Pt at low nutritional risk. no goals. Follow-up due on 08/26/2017 - Consults Comment: Dr Smith,DR Newton ,DR Bryant - Wound Sacrum Wound Type: Other Wound Stage: STAGE I Wound Shape: Irregular Wound Edges: Closed Tunneling: No Undermining: No Wound Bed Greatest Portion: Red (Granulation) Wound Bed Lesser Portion: Red (Granulation) Periwound: Intact Wound Drainage Amount: None Wound General Appearance: Clean/Dry Wound Dressing Status: Open to air Comment: wound care on consult intact protective cream applied - Toileting Toileting: Minimal Assistance - Bladder Management Bladder Pattern: Normal Voiding Method: Toilet, Urinal - Bowel Management Bowel Pattern: Normal Comment: 0 Bowel Management: Contact Guard Frequency of Accidents: o - Transfers Transfers: Minimal Assistance - ADL's ADL's: Minimal Assistance - Pain Management Comments: denies any pain - Patient/Family Teaching Comments: safety fall post cva medication teachings - Goals/Time Frame Comments: Pt was seen awake and alert sitting in his wheelchair watching television prior to room visit. Pt agreeable to participate in session and brought into recreation room. 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 Pt reported that he eats out often in the area. Pt reported that he used to play golf frequently and recently ended his golf membership but is still a member at the club. Pt reported that he enjoys watching movies and television shows and gardening. 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 Pt reports he lives alone, has a sister in the area. Pt at times redirected to maintain proper sitting posture in chair as pt would start to slide in chair and re-educated that pt cannot walk without staff supervision. Pt returned to room and stated that he was going to make phone calls. Call ladd within reach. - Provider Provider: [facility] - Bed Mobility Bed Mobility: Independent - Transfers Wheelchair to Mat: Modified Independent Sit to Stand: Modified Independent - Ambulation Level of Assistance: Modified Independent, Supervision, Verbal Cues Distance (ft.): 500 Orthoses: n/a Comment: 500 feet, DS progressing to mod I on level surfaces, no device. -no VCs required for safety. -at times with scissoring noted but patient able to self-correct and maintain balance without assistance or cueing, noted on L >R but present on both sides. -with fatigue some impaired coordination noted on the L side - Stair Negotiation Stairs: Level of Assistance: Modified Independent, Supervision, Verbal Cues Stairs: Assistive Devices: Left Handrail, Right Handrail Comment: 2 flights 8 inch steps with single rail with DS progressing to mod I. -self-selects reciprocal pattern and uses R rail or L rail (safe with either choice). -requires one cue to ensure entire foot is placed on each step during ascent to prevent posterior loss of balance (noted more deficits with L than right) - Standing Balance Static Stand: Modified [place] with assistive device Dynamic Stand: Supervision, Contact Guard Assist Comment: THORNE BALANCE SCORE 39/56 - low risk of falls - Pain Pain (assessed during therapy session): 0 Comment: pt denies pain - Insight/Carryover Insight/Carryover: Good - Patient/Family Education Comment: -safety, therapy schedule, therapy goals, POC, mobility, use of call ladd, community re-entry, discharge planning, stroke recovery, stroke education. -encouraged PT intake - Assessment/Plan Assessment: Pt receives daily room visits for social support and encouragement to particpate in sessions. Pt is engaged in socializing at bedside in topics about food or golf. Pt will not recall at times the conversation that was discussed prior day and will repeat discussion. Pt presents with no deficits of recalling facts on demand; however, could not recall recent events and have repetitive discussion. Pt is seen reading on his tablet or watching television during his free time. Pt's mood is content and enjoys socializing with staff. - Goals Timeframe: 3 days Goals: -I with bed/mat mobility. -I with transfers. -I with gait x 500 feet. -mod I to negotiate 2 flight of steps. -improve thorne balance score to 45/56 demonstrating reduced fall risk - Provider Therapist: Seema Monson, PT, DPT License Number: [id number] Occupational Therapy - Arousal/Attention/Orientation Patient Orientation: Person, Place, Time, Appropriate to Age, Appropriate to Situation - ADL/IADL Self Feeding: Set-up Help Grooming: Set-up Help Dressing-Upper Extremity: Set-up Help Dressing-Lower Extremity: Supervision, Set-up Help, Contact Guard Comment: no AD used at time of eval - Transfers Wheelchair to Bed Transfers: Supervision, Verbal Cues, Contact Guard Toilet Transfers: Supervision, Set-up Help, Contact Guard Comment: tub transfer to be assessed - Pain Pain (assessed during therapy session): 0 Comment: pt denies pain - Insight/Carryover Insight/Carryover: Good - Patient/Family Education Comment: -safety, therapy schedule, therapy goals, POC, mobility, use of call ladd, community re-entry, discharge planning, stroke recovery, stroke education. -encouraged PT intake - Assessment/Plan Assessment: Pt receives daily room visits for social support and encouragement to particpate in sessions. Pt is engaged in socializing at bedside in topics about food or golf. Pt will not recall at times the conversation that was discussed prior day and will repeat discussion. Pt presents with no deficits of recalling facts on demand; however, could not recall recent events and have repetitive discussion. Pt is seen reading on his tablet or watching television during his free time. Pt's mood is content and enjoys socializing with staff. - Goals Timeframe: 3 days Goals: -I with bed/mat mobility. -I with transfers. -I with gait x 500 feet. -mod I to negotiate 2 flight of steps. -improve thorne balance score to 45/56 demonstrating reduced fall risk - Provider Therapist: PREETHI Byrd[facility] - Plan Assessment: Pt receives daily room visits for social support and encouragement to particpate in sessions. Pt is engaged in socializing at bedside in topics about food or golf. Pt will not recall at times the conversation that was discussed prior day and will repeat discussion. Pt presents with no deficits of recalling facts on demand; however, could not recall recent events and have repetitive discussion. Pt is seen reading on his tablet or watching television during his free time. Pt's mood is content and enjoys socializing with staff. Recreational Therapy - Participation Participation: Monitors His/Her Own Leisure Time - Attendance Attendance: Daily - Activities Leisure Activities: Socializing - Socialization Level of Socialization: Initiates/interacts freely with care givers and peer - Diversional Time Diversional Time: reading, socializing, watching television - Assessment Assessment/Plan: Pt receives daily room visits for social support and encouragement to particpate in sessions. Pt is engaged in socializing at bedside in topics about food or golf. Pt will not recall at times the conversation that was discussed prior day and will repeat discussion. Pt presents with no deficits of recalling facts on demand; however, could not recall recent events and have repetitive discussion. Pt is seen reading on his tablet or watching television during his free time. Pt's mood is content and enjoys socializing with staff. Problems Currently Limiting Participation: decrease safety awareness, forgetfulness Goals and Time Frame: Pt will be encouraged to participate in 1:1 and group recreation therapy sessions to improve on problem solving, higher level cognitive tasks, and improve leisure awareness level. - Provider Therapist: Joanie Castaneda, [employer] #[id number] Nutrition - Current Diet Current Diet/ Supplement/ Feedings: Heart healthy diet - Appetite Percent Meal Consumed: 75-100% - Comments Comments: safety fall post cva medication teachings - Assessment/Goals/Time Frame Assessment/Goals/Time Frame: Pt at low nutritional risk. no goals. Follow-up due on 08/26/2017 - Provider Provider: Luz Pang RD Case Management - Discharge Plan Discharge Plan: Home alone Rehabilitation Plan - Treatment Plan Treatment Plan: Physical Therapy, Occupational Therapy, Patient/Family Education - Discharge Plan Estimated Date of Discharge: 08/23/17 Discharge to: Home
--- NOTE | 2017-08-22 13:25 | CP.PCM.PN ---
Subjective - Date & Time of Evaluation Date of Evaluation: 08/22/17 Time of Evaluation: 13:24 - Subjective Subjective: Patient seen in the room VSS afebrile no pain discussed with nursing and will get up and ambulate today will stop if symptomatic set for d/c home tomorrow Objective - Vital Signs/Intake and Output Vital Signs (last 24 hours): Temp Pulse Resp BP Pulse Ox 98 F 79 19 128/79 98 08/22/17 09:15 08/22/17 09:15 08/22/17 09:15 08/22/17 09:15 08/22/17 09:15 - Medications Medications: Current Medications Acetaminophen (Tylenol 325mg Tab) 650 mg PO Q6 PRN PRN Reason: Pain 1-10 Amlodipine Besylate (Norvasc) 5 mg PO DAILY [facility] Last Admin: 08/22/17 08:06 Dose: 5 mg Nicotine (Nicoderm Cq) 1 patch TD DAILY [facility] Last Admin: 08/22/17 08:07 Dose: 1 patch - Labs Labs: 08/19/17 08:59 08/19/17 08:59
--- NOTE | 2017-08-22 20:58 | CP.PCM.PN ---
Subjective - Date & Time of Evaluation Date of Evaluation: 08/22/17 Time of Evaluation: 22:22 - Subjective Subjective: BP good today Objective - Vital Signs/Intake and Output Vital Signs (last 24 hours): Temp Pulse Resp BP Pulse Ox 98 F 79 19 128/79 98 08/22/17 09:15 08/22/17 09:15 08/22/17 09:15 08/22/17 09:15 08/22/17 09:15 - Medications Medications: Current Medications Acetaminophen (Tylenol 325mg Tab) 650 mg PO Q6 PRN PRN Reason: Pain 1-10 Amlodipine Besylate (Norvasc) 5 mg PO DAILY [facility] Last Admin: 08/22/17 08:06 Dose: 5 mg Nicotine (Nicoderm Cq) 1 patch TD DAILY [facility] Last Admin: 08/22/17 08:07 Dose: 1 patch - Labs Labs: 08/19/17 08:59 08/19/17 08:59 - Respiratory Exam Respiratory Exam: NORMAL BREATHING PATTERN - Cardiovascular Exam Cardiovascular Exam: REGULAR RHYTHM - GI/Abdominal Exam GI & Abdominal Exam: Normal Bowel Sounds Assessment and Plan - Assessment and Plan (Free Text) Assessment: ICH R parietal occipital lobe hemorrhage MRI no underlying lesion Neurology Cardiology Physiatry Monitor BP PT OT HTN smoker Hx vit B12 def Labs
[2017-08-23 00:55] VITALS: RESP 20
[2017-08-23 09:14] VITALS: BP 147/94; PULSE 87
[2017-08-23 10:06] VITALS: TEMP 97.2; O2SAT 98
--- NOTE | 2017-08-23 17:21 | CP.PCM.PN ---
Subjective - Date & Time of Evaluation Date of Evaluation: 08/23/17 Time of Evaluation: 22:22 - Subjective Subjective: Doing well Objective - Vital Signs/Intake and Output Vital Signs (last 24 hours): Temp Pulse Resp BP Pulse Ox 97.2 F L 87 20 147/94 H 98 08/23/17 10:00 08/23/17 10:00 08/23/17 10:00 08/23/17 10:00 08/23/17 10:00 - Labs Labs: 08/19/17 08:59 08/19/17 08:59 - Respiratory Exam Respiratory Exam: NORMAL BREATHING PATTERN - Cardiovascular Exam Cardiovascular Exam: REGULAR RHYTHM - GI/Abdominal Exam GI & Abdominal Exam: Normal Bowel Sounds Assessment and Plan - Assessment and Plan (Free Text) Assessment: ICH R parietal occipital lobe hemorrhage MRI no underlying lesion Neurology Cardiology Physiatry Monitor BP PT OT Norvasc HTN smoker Nicotine patch Hx vit B12 def Labs
== END 2017-08-23 13:15 | disposition home or self-care (01) | DRG 57 ==
PROVIDERS: ADMIT Family Medicine Geriatric Medicine; ATTEND Family Medicine Geriatric Medicine
PROC: F07Z9FZ Gait Training/Functional Ambulation Treatment using Assistive, Adaptive, Supportive or Protective Equipment (ICD-10-PCS; principal; 2017-08-14)
PROC: F08Z4FZ Home Management Treatment using Assistive, Adaptive, Supportive or Protective Equipment (ICD-10-PCS; 2017-08-14)
PROC: F07L6FZ Therapeutic Exercise Treatment of Musculoskeletal System - Lower Back / Lower Extremity using Assistive, Adaptive, Supportive or Protective Equipment (ICD-10-PCS; 2017-08-14)
PROC: 0HBRXZZ Excision of Toe Nail, External Approach (ICD-10-PCS; 2017-08-17)
PROC: 0HBRXZZ Excision of Toe Nail, External Approach (ICD-10-PCS; 2017-08-17)
PROC: 0HBRXZZ Excision of Toe Nail, External Approach (ICD-10-PCS; 2017-08-17)
PROC: 0HBRXZZ Excision of Toe Nail, External Approach (ICD-10-PCS; 2017-08-17)
PROC: 0HBRXZZ Excision of Toe Nail, External Approach (ICD-10-PCS; 2017-08-17)
PROC: 0HBRXZZ Excision of Toe Nail, External Approach (ICD-10-PCS; 2017-08-17)
PROC: 0HBRXZZ Excision of Toe Nail, External Approach (ICD-10-PCS; 2017-08-17)
PROC: 0HBRXZZ Excision of Toe Nail, External Approach (ICD-10-PCS; 2017-08-17)
PROC: 0HBRXZZ Excision of Toe Nail, External Approach (ICD-10-PCS; 2017-08-17)
PROC: 0HBRXZZ Excision of Toe Nail, External Approach (ICD-10-PCS; 2017-08-17)
DX: I69.154 Hemiplegia and hemiparesis following nontraumatic intracerebral hemorrhage affecting left non-dominant side (principal); I10 Essential (primary) hypertension; R26.89 Other abnormalities of gait and mobility; B35.1 Tinea unguium; L60.8 Other nail disorders; I95.9 Hypotension, unspecified; E53.8 Deficiency of other specified B group vitamins; F17.210 Nicotine dependence, cigarettes, uncomplicated

== ENCOUNTER 2017-09-19 18:15 | Inpatient (IN) | payer MEDICARE, OTHER ==
[2017-09-19 19:17] LABS: BASO # 0.1 K/uL (0.0-0.2); BASO % 1.1 % (0.0-2.0); EOS # 0.1 K/uL (0.0-0.7); HEMOGLOBIN 14.4 g/dL (12.0-18.0); LYMPH # 0.8 K/uL (1.0-4.3); LYMPH % 7.4 % (20.0-40.0); MEAN CELL VOLUME 91.9 fl (80.0-94.0); MEAN CORPUSCULAR HEMOGLOBIN 30.3 pg (27.0-31.0); MEAN PLATELET VOLUME 9.7 fl (7.2-11.7); MONO # 0.6 K/uL (0.0-0.8); MONO % 5.4 % (0.0-10.0); NEUT # 9.6 K/uL (1.8-7.0); NEUT % 85.1 % (50.0-75.0); RBC 4.75 Mil/uL (4.40-5.90); RED CELL DISTRIBUTION WIDTH 16.6 % (11.5-14.5); WHITE BLOOD COUNT 11.3 K/uL (4.8-10.8)
[2017-09-19 19:24] LABS: ALB/GLOB RATIO 1.3 (1.0-2.1); ALBUMIN 4.3 g/dL (3.5-5.0); ALT/SGPT 90 U/L (21-72); AST/SGOT 65 U/L (17-59); BLOOD UREA NITROGEN 33 mg/dl (9-20); CALCIUM 9.3 mg/dL (8.4-10.2); GFR AFRICAN-AMERICAN > 60; GFR NON-AFRICAN AMERICAN > 60
--- NOTE | 2017-09-19 19:33 | ED PDOC ---
HPI: General Adult Time Seen by Provider: 09/19/17 18:29 Chief Complaint (Nursing): Shortness Of Breath Chief Complaint (Provider): Weakness History Per: Patient History/Exam Limitations: no limitations Onset/Duration Of Symptoms: Days (x 5) Current Symptoms Are (Timing): Still Present Recently: Treated By A Physician Additional Complaint(s): 77 year old male with a history of HTN, COPD and stroke presents to the ED with weakness since Monday (4 days ago). Weakness is worsening especially with exertion. He is unable to walk for than a few minutes without getting winded. Patient had outpatient blood work and x-ray done today that revealed abnormal results and he was told to come to the ED immediately. He had a recent hemorrhagic stroke and was just discharged from rehab in August. Denies chest pain and shortness of breath. PMD: Dr. Pierson Past Medical History Reviewed: Historical Data, Nursing Documentation, Vital Signs Vital Signs: Last Vital Signs Temp 98.8 F 09/20/17 08:00 Pulse 60 09/20/17 10:00 Resp 25 H 09/20/17 10:00 BP 154/78 H 09/20/17 10:00 Pulse Ox 98 09/20/17 10:00 - Medical History PMH: COPD, HTN Denies: HIV Other PMH: hemmorhagic stroke - Surgical History Surgical History: No Surg Hx - Family History Family History: States: Unknown Family Hx - Social History Ex-Smoker (has not smoked in the last 12 months): Yes (used to be a heavy smoker ) - Immunization History Hx Influenza Vaccination: Yes (dec 2016) Hx Pneumococcal Vaccination: Yes (dec 2016) - Home Medications Home Medications: Ambulatory Orders Medication Instructions Recorded amLODIPine [Norvasc] 5 mg PO DAILY #0 tab 08/23/17 Aspirin [Ecotrin] 81 mg PO DAILY 09/19/17 - Allergies Allergies/Adverse Reactions: Allergies Allergy/AdvReac Type Severity Reaction Status Date / Time No Known Allergies Allergy Verified 08/14/17 17:31 Review of Systems ROS Statement: Except As Marked, All Systems Reviewed And Found Negative Constitutional: Positive for: Weakness Physical Exam - Reviewed Nursing Documentation Reviewed: Yes Vital Signs Reviewed: Yes - Physical Exam Appears: Positive for: Non-toxic, No Acute Distress (tired appearing ) Head Exam: Positive for: ATRAUMATIC, NORMAL INSPECTION, NORMOCEPHALIC Skin: Positive for: Warm, Dry, Pallor Eye Exam: Positive for: EOMI, PERRL ENT: Negative for: Pharyngeal Erythema, Tonsillar Exudate Neck: Positive for: Painless ROM, Supple Cardiovascular/Chest: Positive for: Regular Rate, Rhythm. Negative for: Murmur Respiratory: Positive for: Decreased Breath Sounds. Negative for: Accessory Muscle Use, Wheezing, Respiratory Distress Gastrointestinal/Abdominal: Positive for: Soft. Negative for: Tenderness Back: Positive for: Normal Inspection. Negative for: Decreased ROM Extremity: Positive for: Normal ROM. Negative for: Deformity Lymphatic: Negative for: Adenopathy Neurologic/Psych: Positive for: Alert, Oriented (x 3), Facial Droop (left sided) , Other (subtle left hemiparesis ). Negative for: Motor/Sensory Deficits - Laboratory Results Result Diagrams: 09/20/17 04:35 09/20/17 04:35 - ECG O2 Sat by Pulse Oximetry: 96 (RA) Pulse Ox Interpretation: Normal - Radiology X-Ray Interpretation: Pnemothorax - Critical Care Total Time (In Min): 30 Documented Critical Care: Time excludes all time spent performint seperately billable procedures Medical Decision Making Medical Decision Makin:44 Impression: left side pneumothorax vs pleural bleb Initial Plan: --blood type --Chest CT --BNP --CMP --Troponin I --CBC --PTT --INR --Cxr Discussed case with Dr. Pierson who requested consult for Dr. Rogers, vaccines solutions specialist, and Dr Dwyer surgery consult. CT Chest FINDINGS: LUNGS: Emphysema through both lungs. Moderate to large left pneumothorax. No significant effusion. HEART: No cardiomegaly. No significant pericardial effusion. BONES/JOINTS: No acute fracture. SOFT TISSUES: Unremarkable. VASCULATURE: Atherosclerosis. 10.8 x 9.8 cm infrarenal aortic aneurysm. LYMPH NODES: No enlarged lymph nodes. KIDNEYS AND URETERS: 5.6 x 4 cm right renal cyst. IMPRESSION: 1. Atherosclerosis. 10.8 x 9.8 cm infrarenal aortic aneurysm. 2. 5.6 x 4 cm right renal cyst. 3. Emphysema through both lungs. Moderate to large left pneumothorax. Time: 20:14 --Patient will be admitted to ICU. Admitting diagnosis is left pneumothorax. DW Dr Slaughter Hospitalist for ICU placement, given patient's comorbidities. --Evaluated by Dr Lorenzal Surgery resident, who d/w Dr Lopez Thoracic Surgery. LEFT sided thoracostomy to be performed in ER. 2200 Thoracostomy tube placed by Dr Dwyer. Repeat CXR demonstrates reinflation of LEFT lung. Pt reports some mild pain at site, but otherwise no shortness of breath. ---- Scribe Attestation: Documented by Chelo Gregory, acting as a scribe for Pooja Lewis MD Provider Scribe Attestation: All medical record entries made by the Scribe were at my direction and personally dictated by me. I have reviewed the chart and agree that the record accurately reflects my personal performance of the history, physical exam, medical decision making, and the department course for this patient. I have also personally directed, reviewed, and agree with the discharge instructions and disposition. Disposition - Clinical Impression Clinical Impression: Pneumothorax, left, Abdominal aneurysm - Patient ED Disposition Is Patient to be Admitted: Yes Discussed With DrLakeisha: Clint Brower Doctor Will See Patient In The: Hospital Counseled Patient/Family Regarding: Studies Performed, Diagnosis - Disposition Disposition Time: 20:14 Condition: GUARDED - Pt Status Changed To: Hospital Disposition Of: Inpatient - Admit Certification Admit to Inpatient:: After my assessment, the patient will require hospitalization for at least two midnights. This is because of the severity of symptoms shown, intensity of services needed, and/or the medical risk in this patient being treated as an outpatient. - POA Present On Arrival: None
[2017-09-19 19:35] LABS: PARTIAL THROMBOPLASTIN TIME 30.8 Seconds (25.6-37.1); PROTHROMBIN TIME 10.8 Seconds (9.8-13.1)
[2017-09-19 19:37] LABS: B-TYPE NATRIURETIC PEPTIDE 209 pg/ml (0-900)
--- NOTE | 2017-09-19 20:15 | CP.PCM.CON ---
History of Present Illness - History of Present Illness History of Present Illness: Thoracic surgery - Dr. Lopez 77yo M w/ hx of HTN, recently admitted for Hemorrhagic Stroke, presents today with complaint of being "tired" for past 5 days. Pt states he went to physical therapy as usual this morning but was having difficulty participating d/t feeling tired. He went to his PMD and had EKG/CXR done which found him to have a collapsed lung. He states he was then instructed to go to the emergency room. Pt currently denies any shortness of breathe, difficulty breathing, chest pain, cough, fevers, chills. Pt is sitting up in bed, comfortable, O2 saturations 95-96% on Room air. PMH: HTN, Hemorrhagic stroke PSH: denies Meds as per chart NKDA Social Hx: heavy smoking for 60 years Pt seen in the ED. Vitals stable and wnl. Labs w/ mild leukocytosis. CT Chest showed a moderate left pneumothorax and Thoracic surgery was consulted. Review of Systems - Review of Systems All systems: reviewed and no additional remarkable complaints except (as per HPI ) Past Patient History - Past Medical History & Family History Past Medical History?: Yes - Past Social History Smoking Status: Heavy Smoker > 10 Cigarettes Daily - CARDIAC Hx Hypertension: Yes - PULMONARY Hx Chronic Obstructive Pulmonary Disease (COPD): Yes - NEUROLOGICAL HX Cerebrovascular Accident: Yes (08/08/2017) - HEMATOLOGICAL/ONCOLOGICAL Hx Human Immunodeficiency Virus (HIV): No - MUSCULOSKELETAL/RHEUMATOLOGICAL Hx Falls: No - PSYCHIATRIC Hx Substance Use: No - SURGICAL HISTORY Other/Comment: Dental Procedure ( removal of implant due to gum infection ) - ANESTHESIA Hx Anesthesia: Yes Hx Anesthesia Reactions: No Hx Malignant Hyperthermia: No Meds Allergies/Adverse Reactions: Allergies Allergy/AdvReac Type Severity Reaction Status Date / Time No Known Allergies Allergy Verified 08/14/17 17:31 Physical Exam - Constitutional Appears: Well, No Acute Distress - Head Exam Head Exam: ATRAUMATIC, NORMAL INSPECTION, NORMOCEPHALIC - Eye Exam Eye Exam: Normal appearance - Respiratory Exam Respiratory Exam: NORMAL BREATHING PATTERN. absent: Respiratory Distress - Cardiovascular Exam Cardiovascular Exam: REGULAR RHYTHM - Extremities Exam Extremities exam: Negative for: calf tenderness, pedal edema - Neurological Exam Neurological exam: Alert, Oriented x3 - Psychiatric Exam Psychiatric exam: Normal Affect, Normal Mood - Skin Skin Exam: Dry, Intact Results - Vital Signs Recent Vital Signs: Last Vital Signs Temp 97.6 F 09/19/17 18:25 Pulse 82 09/19/17 18:25 Resp 21 09/19/17 18:25 BP 131/94 H 09/19/17 18:25 Pulse Ox 96 09/19/17 19:58 - Labs Result Diagrams: 09/19/17 19:01 09/19/17 19:01 Labs: Laboratory Results - last 24 hr 09/19/17 09/19/17 09/19/17 18:49 19:01 19:01 WBC 11.3 H RBC 4.75 Hgb 14.4 Hct 43.7 MCV 91.9 MCH 30.3 MCHC 33.0 RDW 16.6 H Plt Count 253 MPV 9.7 Neut % (Auto) 85.1 H Lymph % (Auto) 7.4 L Dillon % (Auto) 5.4 Eos % (Auto) 1.0 Baso % (Auto) 1.1 Neut # (Auto) 9.6 H Lymph # (Auto) 0.8 L Dillon # (Auto) 0.6 Eos # (Auto) 0.1 Baso # (Auto) 0.1 PT INR APTT Sodium 143 Potassium 3.8 Chloride 100 Carbon Dioxide 31 H Anion Gap 16 BUN 33 H Creatinine 1.0 Est GFR ( Amer) > 60 Est GFR (Non-Af Amer) > 60 Random Glucose 138 H Calcium 9.3 Total Bilirubin 0.7 AST 65 H ALT 90 H Alkaline Phosphatase 69 Troponin I < 0.0120 NT-Pro-B Natriuret Pep 209 Total Protein 7.5 Albumin 4.3 Globulin 3.2 Albumin/Globulin Ratio 1.3 BBK History Checked Patient has bt 09/19/17 19:01 WBC RBC Hgb Hct MCV MCH MCHC RDW Plt Count MPV Neut % (Auto) Lymph % (Auto) Dillon % (Auto) Eos % (Auto) Baso % (Auto) Neut # (Auto) Lymph # (Auto) Dillon # (Auto) Eos # (Auto) Baso # (Auto) PT 10.8 INR 1.0 APTT 30.8 Sodium Potassium Chloride Carbon Dioxide Anion Gap BUN Creatinine Est GFR ( Amer) Est GFR (Non-Af Amer) Random Glucose Calcium Total Bilirubin AST ALT Alkaline Phosphatase Troponin I NT-Pro-B Natriuret Pep Total Protein Albumin Globulin Albumin/Globulin Ratio BBK History Checked - Imaging and Cardiology CT scan - chest Status: Image reviewed by me, Report reviewed by me Assessment & Plan - Assessment and Plan (Free Text) Assessment: 77yo M w/ Left pneumothorax -Chest tube placed at bedside -Continue CT to low continous suction (20mmhg on canister) -Repeat CXR in am -Pain control PRN -Incentive Spirometer -Medical management as per primary and icu teams DW Dr John Dwyer PGY4 Chest Tube Insertion - Chest Tube Placement Indication: Pneumothorax Consent Obtained: Written Procedural Sedation: Morphine (2mg) Procedure Description: Prepped W/Betadine, Sterile Drape Applied, Local Anes Used: (20cc 1% Lidocaine) Incision Completed And Tube Inserted At: 4th-5th Intercostal space Post Insertion Procedure(s): Tube Sutured To Chest Wall, CXR Completed To Confirm Placement (Pt tolerated procedure well with no complications), Tube Connected To Suction
--- NOTE | 2017-09-19 20:24 | CP.PCM.CON ---
History of Present Illness - History of Present Illness History of Present Illness: PMD: Dr. Brower Reason for Consult: Critical care Management Chief Complaint: SOB/Generalized weakness The Patient was seen and examined in the ED HPI: The hx was obtained from the patient, his an dafter review of the medical records. He is a 77 years old male with hx of HTN and Hemorrhagic CVA dx 08/15/17 and discharged from Rehab on 09/03/17. He was sent to the ED by his PMD because of SOB on minimal exertion and generalized weakness for 4-5 days. Today at Physical therapy he became extremely short of breath that the Therapist sent him to see his PMD from where he was sent to the ED. no headaches , dizziness, nausea, vomits, coughing. No chest pain nor palpitations. PMH: HTN; COPD?; Hemorrhagic stroke with left side weakness PSH: No surgical Hx SH: Smokes heavily; No alcohol use; No illegal drug use; live with FH: States: Unknown Family Hx Allergies: NKDA Medication: Reviewed Review of Systems - Constitutional Constitutional: Weakness. absent: Anorexia, Chills, Fever, Headache, Lethargy - EENT Eyes: Requires Corrective Lenses. absent: Blurred Vision, Diplopia, Floaters Ears: Decreased Hearing. absent: Ear Discharge, Tinnitus Nose/Mouth/Throat: absent: Epistaxis, Nasal Congestion, Nasal Discharge, Sinus Pain, Sinus Pressure - Cardiovascular Cardiovascular: Dyspnea, Dyspnea on Exertion. absent: Chest Pain, Edema - Respiratory Respiratory: Dyspnea. absent: Cough, Wheezing, Stridor - Gastrointestinal Gastrointestinal: absent: Abdominal Pain, Constipation, Diarrhea, Nausea, Vomiting - Genitourinary Genitourinary: absent: Dysuria, Flank Pain, Urinary Frequency - Musculoskeletal Musculoskeletal: absent: Arthralgias, Joint Swelling - Integumentary Integumentary: absent: Pruritus, Rash, Skin Ulcer, Sores, Striae, Swelling - Neurological Neurological: Weakness. absent: Confusion, Dizziness, Focal Weakness - Psychiatric Psychiatric: absent: Anxiety, Depression, Panic Attacks - Endocrine Endocrine: absent: Palpitations, Polydipsia, Polyphagia, Polyuria - Hematologic/Lymphatic Hematologic: absent: Easy Bruising Past Patient History - Past Medical History & Family History Past Medical History?: Yes - Past Social History Smoking Status: Heavy Smoker > 10 Cigarettes Daily Chewing Tobacco Use: No Cigar Use: No Alcohol: None Home Situation {Lives}: With Family - CARDIAC Hx Hypertension: Yes - PULMONARY Hx Chronic Obstructive Pulmonary Disease (COPD): Yes - NEUROLOGICAL HX Cerebrovascular Accident: Yes (08/08/2017) - HEENT Hx HEENT Problems: No - RENAL Hx Chronic Kidney Disease: No - ENDOCRINE/METABOLIC Hx Endocrine Disorders: No - HEMATOLOGICAL/ONCOLOGICAL Hx Blood Disorders: No Hx Human Immunodeficiency Virus (HIV): No - INTEGUMENTARY Hx Dermatological Problems: No - MUSCULOSKELETAL/RHEUMATOLOGICAL Hx Musculoskeletal Disorders: No Hx Falls: No - GASTROINTESTINAL Hx Gastrointestinal Disorders: No - GENITOURINARY/GYNECOLOGICAL Hx Genitourinary Disorders: No - PSYCHIATRIC Hx Psychophysiologic Disorder: No Hx Substance Use: No - SURGICAL HISTORY Hx Surgeries: No Other/Comment: Dental Procedure ( removal of implant due to gum infection ) - ANESTHESIA Hx Anesthesia: Yes Hx Anesthesia Reactions: No Hx Malignant Hyperthermia: No Meds Allergies/Adverse Reactions: Allergies Allergy/AdvReac Type Severity Reaction Status Date / Time No Known Allergies Allergy Verified 08/14/17 17:31 Physical Exam - Constitutional Appears: No Acute Distress - Head Exam Head Exam: ATRAUMATIC, NORMAL INSPECTION - Eye Exam Eye Exam: EOMI, Normal appearance Pupil Exam: NORMAL ACCOMODATION, PERRL - ENT Exam ENT Exam: Mucous Membranes Moist - Neck Exam Neck exam: Positive for: Full Rom, Normal Inspection. Negative for: Lymphadenopathy, Tenderness - Respiratory Exam Additional comments: Left anterior chest wall elevated, decreased breath sounds at th elefrt chest. No rales, wheezing nor rhonchi - Cardiovascular Exam Cardiovascular Exam: REGULAR RHYTHM, RRR, +S1, +S2. absent: Gallop, JVD - GI/Abdominal Exam GI & Abdominal Exam: Normal Bowel Sounds, Soft. absent: Mass, Organomegaly, Tenderness - Rectal Exam Rectal Exam: Deferred - Extremities Exam Extremities exam: Positive for: full ROM, normal inspection. Negative for: calf tenderness, pedal edema - Back Exam Back exam: NORMAL INSPECTION. absent: CVA tenderness (L), CVA tenderness (R) - Neurological Exam Neurological exam: Alert, CN II-XII Intact, Oriented x3, Reflexes Normal - Psychiatric Exam Psychiatric exam: Normal Affect, Normal Mood - Skin Skin Exam: Dry, Normal Color, Warm Results - Vital Signs Recent Vital Signs: Last Vital Signs Temp 97.6 F 09/19/17 18:25 Pulse 82 09/19/17 18:25 Resp 21 09/19/17 18:25 BP 131/94 H 09/19/17 18:25 Pulse Ox 96 09/19/17 19:58 - Labs Result Diagrams: 09/19/17 19:01 09/19/17 19:01 Labs: Laboratory Results - last 24 hr 09/19/17 09/19/17 09/19/17 18:49 19:01 19:01 WBC 11.3 H RBC 4.75 Hgb 14.4 Hct 43.7 MCV 91.9 MCH 30.3 MCHC 33.0 RDW 16.6 H Plt Count 253 MPV 9.7 Neut % (Auto) 85.1 H Lymph % (Auto) 7.4 L Cherry % (Auto) 5.4 Eos % (Auto) 1.0 Baso % (Auto) 1.1 Neut # (Auto) 9.6 H Lymph # (Auto) 0.8 L Cherry # (Auto) 0.6 Eos # (Auto) 0.1 Baso # (Auto) 0.1 PT INR APTT Sodium 143 Potassium 3.8 Chloride 100 Carbon Dioxide 31 H Anion Gap 16 BUN 33 H Creatinine 1.0 Est GFR ( Amer) > 60 Est GFR (Non-Af Amer) > 60 Random Glucose 138 H Calcium 9.3 Total Bilirubin 0.7 AST 65 H ALT 90 H Alkaline Phosphatase 69 Troponin I < 0.0120 NT-Pro-B Natriuret Pep 209 Total Protein 7.5 Albumin 4.3 Globulin 3.2 Albumin/Globulin Ratio 1.3 BBK History Checked Patient has bt 09/19/17 19:01 WBC RBC Hgb Hct MCV MCH MCHC RDW Plt Count MPV Neut % (Auto) Lymph % (Auto) Cherry % (Auto) Eos % (Auto) Baso % (Auto) Neut # (Auto) Lymph # (Auto) Cherry # (Auto) Eos # (Auto) Baso # (Auto) PT 10.8 INR 1.0 APTT 30.8 Sodium Potassium Chloride Carbon Dioxide Anion Gap BUN Creatinine Est GFR ( Amer) Est GFR (Non-Af Amer) Random Glucose Calcium Total Bilirubin AST ALT Alkaline Phosphatase Troponin I NT-Pro-B Natriuret Pep Total Protein Albumin Globulin Albumin/Globulin Ratio BBK History Checked - Imaging and Cardiology CT scan - chest Status: Image reviewed by me, Report reviewed by me Additional comment: EXAM: CT Chest Without Intravenous Contrast EXAM DATE/TIME: Examination ordered 09/19/2017 6:53 PM. Image number total count reviewed 605 FINDINGS: LUNGS: Emphysema through both lungs. Moderate to large left pneumothorax. No significant effusion. HEART: No cardiomegaly. No significant pericardial effusion. BONES/JOINTS: No acute fracture. SOFT TISSUES: Unremarkable. VASCULATURE: Atherosclerosis. 10.8 x 9.8 cm infrarenal aortic aneurysm. LYMPH NODES: No enlarged lymph nodes. KIDNEYS AND URETERS: 5.6 x 4 cm right renal cyst. IMPRESSION: 1. Atherosclerosis. 10.8 x 9.8 cm infrarenal aortic aneurysm. 2. 5.6 x 4 cm right renal cyst. 3. Emphysema through both lungs. Moderate to large left pneumothorax. Assessment & Plan - Assessment and Plan (Free Text) Assessment: #.Left Pneumothorax #. Dehydration #. leukocytosis #. Emphysem #. Hx of Intracraneal bleed Plan: 77 years old male with hx of HTN and Hemorrhagic CVA dx 08/15/17 with SOB on minimal exertion and generalized weakness for 4-5 days. Today at Physical therapy he became extremely short of breath and was sent to see his PMD who sent to the ED for further evaluation. #. Left Pneumothorax CT Chest: IMPRESSION: 1. Atherosclerosis. 10.8 x 9.8 cm infrarenal aortic aneurysm. 2. 5.6 x 4 cm right renal cyst. 3. Emphysema through both lungs. Moderate to large left pneumothorax. - Consult Dr Lopez Thoracic surgery for Chest Tube - O2 at 2L/min #. COPD with Emphysema - Consult Pulmonary Dr Rogers Pulmonary - Duoneb Q6 #. Dehydration - IV fluid - Follow Renal labs #. leukocytosis - Follow WBC #. Infrarenal aortic aneurysm(10.6x9.8cm) - Will need consult with vascular surgery #. HTN Controlled - Norvasc #. Hx of Intracraneal bleed9 with left side weakness - Outpatient PT #. Code Status: Full - Date & Time Date: 09/19/17 Time: 20:24
[2017-09-19] MEDS ORDERED: Potassium Chloride 20 mEq 100 ML IV SCH (23:45)
[2017-09-20] MEDS: Albuterol-Ipratrop 3 mg / 0.5 (3 ml) UD INH SCH ×5 (01:00→19:11)
[2017-09-20 05:47] LABS: BASO # 0.1 K/uL (0.0-0.2); BASO % 0.8 % (0.0-2.0); EOS # 0.3 K/uL (0.0-0.7); EOS % 2.6 % (0.0-4.0); HEMOGLOBIN 12.7 g/dL (12.0-18.0); LYMPH # 1.1 K/uL (1.0-4.3); LYMPH % 9.6 % (20.0-40.0); MEAN PLATELET VOLUME 9.8 fl (7.2-11.7); MONO # 0.9 K/uL (0.0-0.8); NEUT # 9.2 K/uL (1.8-7.0); RBC 4.22 Mil/uL (4.40-5.90); RED CELL DISTRIBUTION WIDTH 16.6 % (11.5-14.5); WHITE BLOOD COUNT 11.7 K/uL (4.8-10.8)
[2017-09-20] MEDS ORDERED: Pneumococcal 23-Valent Vaccine IM ONE (06:05)
[2017-09-20 06:24] LABS: ALB/GLOB RATIO 1.2 (1.0-2.1); ALBUMIN 3.6 g/dL (3.5-5.0); ALT/SGPT 67 U/L (21-72); AST/SGOT 46 U/L (17-59); BLOOD UREA NITROGEN 35 mg/dl (9-20); CALCIUM 8.7 mg/dL (8.4-10.2); GFR AFRICAN-AMERICAN > 60; GFR NON-AFRICAN AMERICAN > 60
--- NOTE | 2017-09-20 09:28 | CP.PCM.CON ---
History of Present Illness - History of Present Illness History of Present Illness: Asked to see this 77 year old male cigarette smoker who presented to the emergency room with a spontaneous pneumothorax on the left. He had noticed worsening fatigue with activity which began a few days earlier. He denied any chest pain or cough. He was unaware of fever and denied chills. No hemoptysis. He claims to have been sleeping well and has had no nocturnal awakenings. He would awaken rested in the mornings and did not have daytime somnolence. He has not been experiencing any dyspnea with daily activities up until the present illness. 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 He has smoked since the age of 11 with a maximum of 1 PPD. He has not been aware of any prior lung disease in himself or any other family members. He does acknowledge a worrisome weight loss despite a good appetite and normal intake. A CT scan of the thorax done in the emergency room did indeed show a moderate sized left pneumothorax, but also showed diffuse bullous emphysematous changes throughout both lungs and a small segmental area of atelectasis in the LLL. Review of Systems - Review of Systems All systems: reviewed and no additional remarkable complaints except - Constitutional Constitutional: Fatigue, Weight Loss - Respiratory Respiratory: As Per HPI - Neurological Neurological: Other (recovering from recent stroke) Past Patient History - Past Medical History & Family History Past Medical History?: Yes Pertinent Family History: Denies any family members having had any respiratory illness. - Past Social History Smoking Status: Heavy Smoker > 10 Cigarettes Daily Chewing Tobacco Use: No Cigar Use: No Alcohol: None Drugs: Denies Home Situation {Lives}: With Family - CARDIAC Hx Hypertension: Yes - PULMONARY Hx Emphysema: Yes (seen on this hospital admission) - NEUROLOGICAL HX Cerebrovascular Accident: Yes (08/08/2017) - HEENT Hx HEENT Problems: No - RENAL Hx Chronic Kidney Disease: No - ENDOCRINE/METABOLIC Hx Endocrine Disorders: No - HEMATOLOGICAL/ONCOLOGICAL Hx Blood Disorders: No Hx Human Immunodeficiency Virus (HIV): No - INTEGUMENTARY Hx Dermatological Problems: No - MUSCULOSKELETAL/RHEUMATOLOGICAL Hx Musculoskeletal Disorders: No Hx Falls: No - GASTROINTESTINAL Hx Gastrointestinal Disorders: No - GENITOURINARY/GYNECOLOGICAL Hx Genitourinary Disorders: No - PSYCHIATRIC Hx Psychophysiologic Disorder: No Hx Substance Use: No - SURGICAL HISTORY Hx Surgeries: No Other/Comment: Dental Procedure ( removal of implant due to gum infection ) - ANESTHESIA Hx Anesthesia: Yes Hx Anesthesia Reactions: No Hx Malignant Hyperthermia: No Meds Allergies/Adverse Reactions: Allergies Allergy/AdvReac Type Severity Reaction Status Date / Time No Known Allergies Allergy Verified 08/14/17 17:31 - Medications Medications: Current Medications Albuterol/Ipratropium (Duoneb 3 Mg/0.5 Mg (3 Ml) Ud) 3 ml INH RQ6 [facility] Last Admin: 09/20/17 07:42 Dose: 3 ml Amlodipine Besylate (Norvasc) 5 mg PO DAILY [facility] Last Admin: 09/20/17 09:03 Dose: 5 mg Potassium Chloride (Potassium Chloride 20 Meq/100 Ml) 100 mls @ 50 mls/hr IV .Q2H [facility] Last Admin: 09/20/17 00:21 Dose: 50 mls/hr Morphine Sulfate (Morphine) 2 mg IVP Q4 PRN PRN Reason: Pain, moderate (4-7) Nicotine (Nicoderm Cq) 1 patch TD DAILY [facility] Last Admin: 09/20/17 09:03 Dose: 1 patch Physical Exam - Additional Findings Additional findings: Thin, well oriented male in no distress. Mild discomfort from left side chest tube. Small volume bloody drainage in PleurEvac. Awake and cooperative with exam. Speech is fluent, memory intact. Pharynx is pink and moist MM w/o exudate. Neck is supple, trachea midline, no JVD, no carotid bruit. No palpable lymphadenopathy. Nares patent bilaterally w/o bleeding. Hyper-resonant percussion note both hemithoraces. Chest tube left lateral chest with clean/dry dressing. Breath sounds are very diminished bilaterally. No audible rales, wheezes, rhonchi or bronchial breath sounds. Heart sounds are distant, rhythm is regular. Abdomen is soft, normal BS, prominent aortic impulse. No dependant edema, no cyanosis, no calf tenderness. Results - Vital Signs Recent Vital Signs: Last Vital Signs Temp 98.2 F 09/20/17 04:00 Pulse 66 09/20/17 06:00 Resp 15 09/20/17 06:00 BP 150/88 09/20/17 09:03 Pulse Ox 94 L 09/20/17 06:00 - Labs Result Diagrams: 09/20/17 04:35 09/20/17 04:35 Labs: Laboratory Results - last 24 hr 09/19/17 09/19/17 09/19/17 18:49 19:01 19:01 WBC 11.3 H RBC 4.75 Hgb 14.4 Hct 43.7 MCV 91.9 MCH 30.3 MCHC 33.0 RDW 16.6 H Plt Count 253 MPV 9.7 Neut % (Auto) 85.1 H Lymph % (Auto) 7.4 L [place] % (Auto) 5.4 Eos % (Auto) 1.0 Baso % (Auto) 1.1 Neut # (Auto) 9.6 H Lymph # (Auto) 0.8 L [place] # (Auto) 0.6 Eos # (Auto) 0.1 Baso # (Auto) 0.1 PT INR APTT Sodium 143 Potassium 3.8 Chloride 100 Carbon Dioxide 31 H Anion Gap 16 BUN 33 H Creatinine 1.0 Est GFR ( Amer) > 60 Est GFR (Non-Af Amer) > 60 Random Glucose 138 H Calcium 9.3 Total Bilirubin 0.7 AST 65 H ALT 90 H Alkaline Phosphatase 69 Troponin I < 0.0120 NT-Pro-B Natriuret Pep 209 Total Protein 7.5 Albumin 4.3 Globulin 3.2 Albumin/Globulin Ratio 1.3 Blood Type O POSITIVE Antibody Screen Negative BBK History Checked Patient has bt 09/19/17 09/20/17 09/20/17 19:01 04:35 04:35 WBC 11.7 H RBC 4.22 L Hgb 12.7 Hct 38.4 MCV 91.0 MCH 30.0 MCHC 33.0 RDW 16.6 H Plt Count 237 MPV 9.8 Neut % (Auto) 79.0 H Lymph % (Auto) 9.6 L [place] % (Auto) 8.0 Eos % (Auto) 2.6 Baso % (Auto) 0.8 Neut # (Auto) 9.2 H Lymph # (Auto) 1.1 [place] # (Auto) 0.9 H Eos # (Auto) 0.3 Baso # (Auto) 0.1 PT 10.8 INR 1.0 APTT 30.8 Sodium 142 Potassium 3.6 Chloride 102 Carbon Dioxide 30 Anion Gap 14 BUN 35 H Creatinine 0.9 Est GFR ( Amer) > 60 Est GFR (Non-Af Amer) > 60 Random Glucose 94 Calcium 8.7 Total Bilirubin 0.5 AST 46 ALT 67 Alkaline Phosphatase 64 Troponin I NT-Pro-B Natriuret Pep Total Protein 6.6 Albumin 3.6 Globulin 3.0 Albumin/Globulin Ratio 1.2 Blood Type Antibody Screen BBK History Checked Assessment & Plan (1) Pneumothorax, left Status: Acute Priority: High (2) Pulmonary emphysema determined by X-ray Status: Chronic Priority: High - Assessment and Plan (Free Text) Plan: Agree with current management. Will use aerosol therapy on scheduled basis despite lack of current symptoms. Alpha 1 antitrypsin level requested. Pulmonary function study in the future as an outpatient. - Date & Time Date: 09/20/17 Time: 09:28
[2017-09-20] MEDS ORDERED: Albuterol 0.083% Inhal Sol (2.5 mg/3 mL) UD INH PRN (09:53)
--- NOTE | 2017-09-20 10:41 | CT ---
Date of service: 09/19/2017 PROCEDURE: CT Chest without contrast HISTORY: pneumothorax v bullae COMPARISON: None. TECHNIQUE: Contiguous axial images were obtained through the chest without intravenous contrast enhancement. Sagittal and coronal reconstructions were performed. Radiation dose (DLP): 253.87 mGy-cm. This CT exam was performed using one or more of the following dose reduction techniques: Automated exposure control, adjustment of the mA and/or kV according to patient size, and/or use of iterative reconstruction technique. FINDINGS: LUNGS: Moderate emphysematous changes. MEDIASTINUM: Unremarkable thoracic aorta. No thoracic aneurysm. Normal sized heart. Main pulmonary artery unremarkable. No vascular congestion. No lymphadenopathy. PLEURA: Left tension pneumothorax with shift of mediastinal structures to the right. This is approximately 50- 65%. BONES: No fracture. No destructive lesion. UPPER ABDOMEN: Incompletely visualized abdominal aortic aneurysm 9.4 x 9.9 cm. Although incompletely visualized, noncontrast study precludes greater degree of accuracy the lumen appears to measure 5.6 cm. OTHER FINDINGS: None. IMPRESSION: Left tension pneumothorax resulting in shift of mediastinal structures to the contralateral, right side. This is estimated to be 50-60% of the left lung. Large incompletely visualized abdominal aortic aneurysm. Follow-up recommended for further evaluation/ characterisation. Concordant results (preliminary interpretation) provided by [facility]. Procedure Completed: 19:17 Preliminary ([facility]) Report: Dictated and Authenticated: 20:09 Final Interpretation: 10:36.
--- NOTE | 2017-09-20 10:49 | CP.PCM.PN ---
Subjective - Date & Time of Evaluation Date of Evaluation: 09/20/17 Time of Evaluation: 10:47 - Subjective Subjective: CT surgery note for Dr. Garett Amin, PGY-2 Pt S & E at bedside at 1010 Pt reports no current problems. Denies chest pain, SOB, palptiations, N & V, F & C. Slept well. Objective - Vital Signs/Intake and Output Vital Signs (last 24 hours): Temp Pulse Resp BP Pulse Ox 98.8 F 62 21 150/88 97 09/20/17 08:00 09/20/17 08:00 09/20/17 08:00 09/20/17 09:03 09/20/17 08:00 Intake and Output: 09/20/17 09/20/17 06:59 18:59 Output Total 231 Balance -231 - Medications Medications: Current Medications Albuterol Sulfate (Albuterol 0.083% Inhal Wendy (2.5 Mg/3 Ml) Ud) 2.5 mg INH RQ4 PRN PRN Reason: Shortness of Breath Albuterol/Ipratropium (Duoneb 3 Mg/0.5 Mg (3 Ml) Ud) 3 ml INH RQID [facility] Amlodipine Besylate (Norvasc) 5 mg PO DAILY [facility] Last Admin: 09/20/17 09:03 Dose: 5 mg Potassium Chloride (Potassium Chloride 20 Meq/100 Ml) 100 mls @ 50 mls/hr IV .Q2H [facility] Last Admin: 09/20/17 00:21 Dose: 50 mls/hr Morphine Sulfate (Morphine) 2 mg IVP Q4 PRN PRN Reason: Pain, moderate (4-7) Nicotine (Nicoderm Cq) 1 patch TD DAILY [facility] Last Admin: 09/20/17 09:03 Dose: 1 patch - Labs Labs: 09/20/17 04:35 09/20/17 04:35 PT 10.8 Seconds (9.8-13.1) 09/19/17 19:01 INR 1.0 (0.9-1.2) 09/19/17 19:01 APTT 30.8 Seconds (25.6-37.1) 09/19/17 19:01 - Constitutional Appears: Non-toxic, No Acute Distress - Head Exam Head Exam: ATRAUMATIC, NORMAL INSPECTION, NORMOCEPHALIC - Eye Exam Eye Exam: EOMI, Normal appearance - ENT Exam ENT Exam: Mucous Membranes Moist, Normal Exam - Neck Exam Neck Exam: Full ROM, Normal Inspection - Respiratory Exam Respiratory Exam: NORMAL BREATHING PATTERN. absent: Prolonged Expiratory Phase , Rales, Rhonchi, Wheezes, Respiratory Distress Additional comments: Left chest wall with CT inserted- dressing with scant serous strike through - Cardiovascular Exam Cardiovascular Exam: REGULAR RHYTHM, +S1, +S2 - GI/Abdominal Exam GI & Abdominal Exam: Soft. absent: Distended, Firm, Guarding, Rigid, Tenderness - Extremities Exam Extremities Exam: Normal Inspection - Neurological Exam Neurological Exam: Alert, Awake, CN II-XII Intact, Oriented x3 - Psychiatric Exam Psychiatric exam: Normal Affect, Normal Mood - Skin Skin Exam: Dry, Intact, Normal Color, Warm Assessment and Plan - Assessment and Plan (Free Text) Assessment: 77M w/Left sided pneumothorax s/p chest tube insertion - resolved Plan: Chest tube dressing changed Monitor CT output Continue on low continuous suction Daily CXR Pain control PRN Encourage IS use Further mgmt as per primary and ICU teams Will LUCI attending Eloisa, PGY-2
--- NOTE | 2017-09-20 11:15 | RAD ---
Date of service: 09/19/2017 HISTORY: ptx COMPARISON: 09/19/2017 chest x-ray 1609 hours FINDINGS: LUNGS: The left pneumothorax is renoted. Current study may be in slightly greater inspiration than the prior. No pneumothorax is most pronounced the left lung base and left apex. The left lateral margin of the pneumothorax appears slightly further left lateral compared the prior study-however other parts of left lung appear increased in density and progressive the partial collapse here is compatible with this. Assessment for slight mediastinal shift is somewhat problematic on the studies given patient's dextroscoliosis and marked tortuous thoracic aorta. Background hyperinflation compatible with emphysema is also noted. PLEURA: No significant pleural effusion identified pneumothorax as detailed above. CARDIOVASCULAR: Normal. OSSEOUS STRUCTURES: No significant abnormalities. VISUALIZED UPPER ABDOMEN: Normal. OTHER FINDINGS: None. IMPRESSION: Known left pneumothorax -as detailed above.
--- NOTE | 2017-09-20 11:21 | RAD ---
Date of service: 09/19/2017 HISTORY: post thoracostomy COMPARISON: 09/19/2017 chest x-ray 1857 hours FINDINGS: LUNGS: No interval consolidation. Interval changes listed below regarding the left pneumothorax. There is bilateral hyper inflation compatible with background emphysematous change. PLEURA: No effusion. Interval decrease in the size of the left pneumothorax is noted the left pleural reflection is approximately 8 mm from the inferior left 1st rib cortex now the remaining of the left lung appears largely re- expanded at the left lung base per fade traversing pulmonary vascular markings here now. A left chest tube tip projects at the left upper lobe. Trace left lateral thoracic subcutaneous emphysema noted. CARDIOVASCULAR: There is less flattening of the left inferior heart border on the current study compared the prior study. As before the dextroscoliosis and marked tortuosity of the thoracic aorta is renoted. No mediastinal shift appreciated OSSEOUS STRUCTURES: Dextroscoliosis. Bilateral shoulder arthrosis. Cervical and thoracic spondylosis. VISUALIZED UPPER ABDOMEN: Normal. OTHER FINDINGS: None. IMPRESSION: Significant interval improvement of the prior large left pneumothorax now very minimal at the left lung apex. Interval insertion left chest tube. Bilateral hyperinflation/emphysema - inferred.
--- NOTE | 2017-09-20 11:48 | RAD ---
Date of service: 09/20/2017 PROCEDURE: CHEST RADIOGRAPH, 1 VIEW HISTORY: PTX s/p Chest tube COMPARISON: 09/19/2017 FINDINGS: LUNGS: The position of the left chest tube tip towards the upper lobe laterally is similar. A definite pleural reflection is difficult to confirm on these images. There are lung markings seen projecting over left costophrenic angle are prior large pneumothorax have been noted previously but had largely improved and/or resolved on the prior chest x-ray. The faint lines project over left clark thorax now may be impart skin folds and/or areas of subpleural partial atelectasis. Some minimal consolidation was noted on the CT chest study which more clearly show the extent of the prior left pneumothorax PLEURA: Currently no are pneumothorax is appreciated on this chest x-ray. Findings are as noted above. CARDIOVASCULAR: Normal. OSSEOUS STRUCTURES: No significant abnormalities. VISUALIZED UPPER ABDOMEN: Normal. OTHER FINDINGS: None. IMPRESSION: Currently no pneumothorax is appreciated on this exam. Comments please note an addendum to the prior 09/19/2017 study at 2144 hours well was initially felt to possibly be a remnant of a tiny left residual apical pneumothorax appears more likely to represent the superior medial left scapular border.
--- NOTE | 2017-09-20 12:14 | CP.PCM.PN ---
Subjective - Date & Time of Evaluation Date of Evaluation: 09/20/17 Time of Evaluation: 12:01 - Subjective Subjective: Reason for consultation: Left pneumothorax+sob. Requested by Progress notes and imaging studies reviewed. Mangement plan discussed with residents on rounds. 77 yo male PMH rececent hemorrhagic stroke, presented to ER with cxr finding of >50% left pneumothorax. Cxr a; in ER showed a moderate size pneumothorax CT in the ER confirms cxr findings. A chst tube was inserted with resolution of pneumothorax. However, there appears to be a questionable left basilar pneumothorax which requires a further clarification by getting CT. d/w . a/p: Left pneumothorax. s/p a Tube thoracostomy. Resolution of left pneumothorax other than a questionable area in the left base which will require ct. d/w Dr. Mckeon. Objective - Vital Signs/Intake and Output Vital Signs (last 24 hours): Temp Pulse Resp BP Pulse Ox 98.8 F 62 21 150/88 97 09/20/17 08:00 09/20/17 08:00 09/20/17 08:00 09/20/17 09:03 09/20/17 08:00 Intake and Output: 09/20/17 09/20/17 06:59 18:59 Output Total 231 Balance -231 - Medications Medications: Current Medications Albuterol Sulfate (Albuterol 0.083% Inhal Wendy (2.5 Mg/3 Ml) Ud) 2.5 mg INH RQ4 PRN PRN Reason: Shortness of Breath Albuterol/Ipratropium (Duoneb 3 Mg/0.5 Mg (3 Ml) Ud) 3 ml INH RQID [facility] Amlodipine Besylate (Norvasc) 5 mg PO DAILY [facility] Last Admin: 09/20/17 09:03 Dose: 5 mg Potassium Chloride (Potassium Chloride 20 Meq/100 Ml) 100 mls @ 50 mls/hr IV .Q2H [facility] Last Admin: 09/20/17 00:21 Dose: 50 mls/hr Morphine Sulfate (Morphine) 2 mg IVP Q4 PRN PRN Reason: Pain, moderate (4-7) Nicotine (Nicoderm Cq) 1 patch TD DAILY [facility] Last Admin: 09/20/17 09:03 Dose: 1 patch - Labs Labs: 09/20/17 04:35 09/20/17 04:35 PT 10.8 Seconds (9.8-13.1) 09/19/17 19:01 INR 1.0 (0.9-1.2) 09/19/17 19: APTT 30.8 Seconds (25.6-37.1) 09/19/17 19:01
[2017-09-20] MEDS ORDERED: Sodium Chloride 0.9% 50 ML IV ONE (13:16)
[2017-09-20] MEDS ORDERED: Iohexol 300 100 ML IJ ONE (13:16)
--- NOTE | 2017-09-20 14:25 | CT ---
Date of service: 09/20/2017 PROCEDURE: CT HEAD WITHOUT CONTRAST. HISTORY: recent stroke COMPARISON: MRI of the brain without with contrast 08/09/2017. CT of the head 08/08/2017 TECHNIQUE: Axial computed tomography images were obtained through the head/brain without intravenous contrast. Radiation dose: Total exam DLP = 918 mGy-cm. This CT exam was performed using one or more of the following dose reduction techniques: Automated exposure control, adjustment of the mA and/or kV according to patient size, and/or use of iterative reconstruction technique. FINDINGS: HEMORRHAGE: Where patient's prior hyperdense hemorrhage on the CT 08/08/2017 there is now a low density cystic appearing focus in the medial right parietal lobe measuring 1.4 cm. Compatible with developing cystic encephalomalacia. No mass effect or midline shift seen. No new interval areas of hemorrhage. BRAIN: No interval mass effect or edema. The prior generalize cerebral atrophy and the multiple periventricular mostly as well is deep white matter microvascular ischemic changes. Left basal ganglionic lacunes renoted and similar in appearance VENTRICLES: Unremarkable. No hydrocephalus. CALVARIUM: Unremarkable. PARANASAL SINUSES: Left ethmoidal sinus benign-appearing osteoma. Small scattered ethmoidal retention cyst and trace mucosal thickening. . MASTOID AIR CELLS: Unremarkable as visualized. No inflammatory changes. OTHER FINDINGS: None. IMPRESSION: No interval hemorrhage or mass effect seen. Changes compatible with resolving prior hyperdense hematoma in the medial right parietal cerebral lobe. Other findings as above.
--- NOTE | 2017-09-20 15:16 | CT ---
Date of service: 09/20/2017 PROCEDURE: CT Chest, Abdomen and Pelvis with intravenous contrast HISTORY: pneumothorax COMPARISON: 09/19/2017 CT chest TECHNIQUE: IV dose administered: 99 cc of Omnipaque Radiation dose: Total exam DLP = 432 mGy-cm. This CT exam was performed using one or more of the following dose reduction techniques: Automated exposure control, adjustment of the mA and/or kV according to patient size, and/or use of iterative reconstruction technique. FINDINGS: CT CHEST WITH CONTRAST: LUNGS: There is extensive cystic emphysematous changes blebs and bulla throughout both lungs. The right apical pleural scarring thickening is as before. There is interval improvement of the posteromedial right lower lobe consolidative/ atelectatic changes. Trace residual of atelectasis here in scarring persists. MEDIASTINUM: Given the marked tortuosity of the thoracic aorta - no definitive mediastinal shift shift is believe present. . Normal caliber aorta and pulmonary arterial trunk. No aortic dissection. Normal size heart. LYMPH NODES: Unremarkable. PLEURA: No significant appearing pleural effusion. There are loculated of left-sided pneumothorax persisting although the size of the left pneumothorax is markedly decreased compared the prior study these residual loculated sub pneumothorax these are seen most notably inferiorly: Left - anterolaterally and posteromedially. This the anterior pneumothorax does extend superiorly but is much less than that before. The left chest tube tip points left laterally here this no significant residual pneumothorax. However at the same level more anteriorly there is a persisting left pneumothorax present. Opens axis series 4, image 35). BONES: There are inferior cervical spine subchondral sclerotic and cystic changes. -likely degenerative in nature. OTHER FINDINGS: None. CT ABDOMEN AND PELVIS: LIVER: Unremarkable. No gross lesion or ductal dilatation. GALLBLADDER AND BILE DUCTS: Nondistended -otherwise unremarkable PANCREAS: Atrophic . No gross lesion or ductal dilatation. SPLEEN: Unremarkable. ADRENALS: Thickened adrenal limbs -adrenal hyperplasia inferred. . No mass. KIDNEYS AND URETERS: Bilateral renal cortical atrophy. No renal urolithiasis. Left intrarenal pelviectasis. . Some milder left caliectasis not excluded. Bilateral renal function appear symmetrical with the renal cortical atrophy changes noted. No hydroureter. Exophytic right renal cyst posterior upper pole -5 cm in size. VASCULATURE: Extensive marked infrarenal descending abdominal aortic aneurysm. The contrast laden Lumen is approximately 5.5 x 5.9 cm in size. The more peripheral aneurysmal noncontrast chronic appearing thrombus filled larger lumen measures approximately 10 cm in rounded diameter over a approximately 10 to 11 cm cephalo caudal extent. Contrast laden lumen which has irregular marginations to it just above its bifurcation measures approximately 2.3 x 3.4 cm in size. No extension of the aneurysm into the common iliac arteries is seen. Each common iliac artery lumen is approximately 9 to 10 mm. . The celiac and superior mesenteric artery branches appear grossly patent. BOWEL: . No gross obstruction. No gross mural thickening. The large abdominal aortic aneurysm displaces and compresses the surrounding small large bowel loops. APPENDIX: The appendix is not identified. No gross pericecal inflammatory changes are noted. There is paucity of internal body fat noted. PERITONEUM: Unremarkable. No free fluid. No free air. LYMPH NODES: Unremarkable. No enlarged lymph nodes. BLADDER: Nondistended bladder. Otherwise unremarkable REPRODUCTIVE: Enlarged prostate measuring up to 5.6 cm. BONES: No acute fracture. Degenerative disc disease L4-5 and L5-S1. OTHER FINDINGS: None. IMPRESSION: Large descending abdominal aortic aneurysm with extensive chronic appearing circumferential thrombus. . Contrast laden lumen is 5.5 x 5.9 cm. The more peripheral outer aneurysmal wall measures approximately 10 cm in rounded diameter. Bilateral renal atrophy. Left intrarenal pelviectasis possible lesser left caliectasis. No obstructing calculus seen. A large abdominal aortic aneurysm does display mass effect and dispersal of the surrounding bowel loops some potential mass effect on the left ureter however would not be unexpected. Each renal artery orifice appears patent. No gross extravasation of hyperdense blood or contrast beyond the lumen is appreciated. Left pneumothorax -as detailed above. Exophytic benign-appearing 5 cm cyst- upper renal pole Comments: The large and extensive descending abdominal aortic aneurysm and the persisting left pneumothorax was called in to the ICU/CCU and directly discussed with the nurse Juan Carlos Mckeon taking care the patient on 09/20/2017 at 3:08 p.m.
--- NOTE | 2017-09-20 16:35 | CP.PCM.HP ---
History of Present Illness - History of Present Illness History of Present Illness: 77 yo smoker HTN S/P CVA admitted for Pneumothorax Present on Admission - Present on Admission Any Indicators Present on Admission: No Past Patient History - Past Medical History & Family History Past Medical History?: Yes - Past Social History Smoking Status: Heavy Smoker > 10 Cigarettes Daily Chewing Tobacco Use: No Cigar Use: No Alcohol: None Drugs: Denies Home Situation {Lives}: With Family - CARDIAC Hx Hypertension: Yes - PULMONARY Hx Chronic Obstructive Pulmonary Disease (COPD): Yes - NEUROLOGICAL HX Cerebrovascular Accident: Yes (08/08/2017) - HEENT Hx HEENT Problems: No - RENAL Hx Chronic Kidney Disease: No - ENDOCRINE/METABOLIC Hx Endocrine Disorders: No - HEMATOLOGICAL/ONCOLOGICAL Hx Human Immunodeficiency Virus (HIV): No - INTEGUMENTARY Hx Dermatological Problems: No - MUSCULOSKELETAL/RHEUMATOLOGICAL Hx Musculoskeletal Disorders: No Hx Falls: No - GASTROINTESTINAL Hx Gastrointestinal Disorders: No - GENITOURINARY/GYNECOLOGICAL Hx Genitourinary Disorders: No - PSYCHIATRIC Hx Psychophysiologic Disorder: No Hx Substance Use: No - SURGICAL HISTORY Hx Surgeries: No Other/Comment: Dental Procedure ( removal of implant due to gum infection ) - ANESTHESIA Hx Anesthesia: Yes Hx Anesthesia Reactions: No Hx Malignant Hyperthermia: No Meds Allergies/Adverse Reactions: Allergies Allergy/AdvReac Type Severity Reaction Status Date / Time No Known Allergies Allergy Verified 08/14/17 17:31 Physical Exam - Respiratory Exam Respiratory Exam: NORMAL BREATHING PATTERN - Cardiovascular Exam Cardiovascular Exam: REGULAR RHYTHM - GI/Abdominal Exam GI & Abdominal Exam: Normal Bowel Sounds Results - Vital Signs Recent Vital Signs: Last Vital Signs Temp 98.8 F 09/20/17 08:00 Pulse 60 09/20/17 10:00 Resp 25 H 09/20/17 10:00 BP 154/78 H 09/20/17 10:00 Pulse Ox 96 09/20/17 14:35 - Labs Result Diagrams: 09/20/17 04:35 09/20/17 04:35 Labs: Laboratory Results - last 24 hr 09/19/17 09/19/17 09/19/17 18:49 19:01 19:01 WBC 11.3 H RBC 4.75 Hgb 14.4 Hct 43.7 MCV 91.9 MCH 30.3 MCHC 33.0 RDW 16.6 H Plt Count 253 MPV 9.7 Neut % (Auto) 85.1 H Lymph % (Auto) 7.4 L [place] % (Auto) 5.4 Eos % (Auto) 1.0 Baso % (Auto) 1.1 Neut # (Auto) 9.6 H Lymph # (Auto) 0.8 L [place] # (Auto) 0.6 Eos # (Auto) 0.1 Baso # (Auto) 0.1 PT INR APTT Sodium 143 Potassium 3.8 Chloride 100 Carbon Dioxide 31 H Anion Gap 16 BUN 33 H Creatinine 1.0 Est GFR ( Amer) > 60 Est GFR (Non-Af Amer) > 60 Random Glucose 138 H Calcium 9.3 Total Bilirubin 0.7 AST 65 H ALT 90 H Alkaline Phosphatase 69 Troponin I < 0.0120 NT-Pro-B Natriuret Pep 209 Total Protein 7.5 Albumin 4.3 Globulin 3.2 Albumin/Globulin Ratio 1.3 Blood Type O POSITIVE Antibody Screen Negative BBK History Checked Patient has bt 09/19/17 09/20/17 09/20/17 19:01 04:35 04:35 WBC 11.7 H RBC 4.22 L Hgb 12.7 Hct 38.4 MCV 91.0 MCH 30.0 MCHC 33.0 RDW 16.6 H Plt Count 237 MPV 9.8 Neut % (Auto) 79.0 H Lymph % (Auto) 9.6 L [place] % (Auto) 8.0 Eos % (Auto) 2.6 Baso % (Auto) 0.8 Neut # (Auto) 9.2 H Lymph # (Auto) 1.1 [place] # (Auto) 0.9 H Eos # (Auto) 0.3 Baso # (Auto) 0.1 PT 10.8 INR 1.0 APTT 30.8 Sodium 142 Potassium 3.6 Chloride 102 Carbon Dioxide 30 Anion Gap 14 BUN 35 H Creatinine 0.9 Est GFR ( Amer) > 60 Est GFR (Non-Af Amer) > 60 Random Glucose 94 Calcium 8.7 Total Bilirubin 0.5 AST 46 ALT 67 Alkaline Phosphatase 64 Troponin I NT-Pro-B Natriuret Pep Total Protein 6.6 Albumin 3.6 Globulin 3.0 Albumin/Globulin Ratio 1.2 Blood Type Antibody Screen BBK History Checked Assessment & Plan - Assessment and Plan (Free Text) Assessment: L Pneumothorax COPD Pulmonary ICU S/P ICH R parietal occipital lobe hemorrhage MRI no underlying lesion Neurology HTN smoker Hx vit B12 def Labs
--- NOTE | 2017-09-20 18:07 | CP.CCUPN ---
CCU Subjective - Physician Review Subjective (Free Text): Remains on CT suction, no adverse events overnight, no distress on RA oxygenation. No noted drainage from CT as well. Other vitals and I/O's reviewed. No fever spikes nor any low grade temps last 24H. HR 60-70s in sinus, BP range for systolic has been 130-150's today, SPO2 97% on RA. ROS: No other pertinent negs or positives on 10+ system review PMSFH: All other Nursing and physician documentation reviewed to date; no new pertinent info noted relevant to current medical problems. EXAM- HEENT: no icterus, no gaze preference NECK: No JVD, supple, carotids equal upstroke bilat/no bruits CHEST: decreased BS bases, no wheezes audible HEART: regular, distant, S1S2, no rubs or murmurs ABD: soft, no distention, no tympany, no palp tenderness, BS hypoactive EXT: no peripheral/ digital cyanosis, no calf tenderness or palpable cords, distal pulses intact and symmetrical. NEURO: no focal motor deficits SKIN: no rashes, warm and dry. LABS: WBC= 11.7 HGB= 12.7 PLTs= 237K Lg=830 K= 3.6 WO=383 HCO3= 30 BUN/Cr=35/0.9 BS= 94 CXR: portable film this AM shows no obvious visible Left PTX, skin folds visible, but there are lung markings visible past the skin fold lines; chest tube position intact.(my interp). IMPRESSION / MAJOR PROBLEMS NOW: 1. Spontaneous Left PTX, s/p Chest tube thoracostomy 2. Bullous Emphysematous Lung Disease 3. SubAcute hemorrhagic stroke 1 month ago 4. r/o Descending AAA PLAN: 1. CT Chest ordered as per Elena to re-assess for an occult, persistent Left PTX. No deleterious impact noted on oxygenation nor hemodynamics. 2. Mobilize OOB as tolerated. Critical Care Progress Note - Nutrition Nutrition: Nutrition Category Date Time Status Heart Healthy Diet [DIET] Diets 09/20/17 Breakfast Active NPO Diet [DIET] Diets 09/21/17 Breakfast Active
[2017-09-21 05:32] LABS: BASO # 0.1 K/uL (0.0-0.2); BASO % 0.8 % (0.0-2.0); EOS # 0.5 K/uL (0.0-0.7); HEMOGLOBIN 13.3 g/dL (12.0-18.0); LYMPH # 1.1 K/uL (1.0-4.3); LYMPH % 11.7 % (20.0-40.0); MEAN CELL VOLUME 91.3 fl (80.0-94.0); MEAN CORPUSCULAR HEMOGLOBIN 30.4 pg (27.0-31.0); MEAN CORPUSCULAR HGB CONC 33.3 g/dL (33.0-37.0); MEAN PLATELET VOLUME 9.5 fl (7.2-11.7); MONO # 0.7 K/uL (0.0-0.8); MONO % 8.1 % (0.0-10.0); NEUT # 6.8 K/uL (1.8-7.0); NEUT % 74.4 % (50.0-75.0); RBC 4.36 Mil/uL (4.40-5.90); RED CELL DISTRIBUTION WIDTH 16.7 % (11.5-14.5); WHITE BLOOD COUNT 9.1 K/uL (4.8-10.8)
[2017-09-21 05:56] LABS: PARTIAL THROMBOPLASTIN TIME 28.5 Seconds (25.6-37.1); PROTHROMBIN TIME 10.7 Seconds (9.8-13.1)
[2017-09-21 06:05] LABS: ALB/GLOB RATIO 1.1 (1.0-2.1); ALBUMIN 3.3 g/dL (3.5-5.0); ALT/SGPT 50 U/L (21-72); AST/SGOT 28 U/L (17-59); BLOOD UREA NITROGEN 25 mg/dl (9-20); CALCIUM 8.6 mg/dL (8.4-10.2); GFR AFRICAN-AMERICAN > 60; GFR NON-AFRICAN AMERICAN > 60
[2017-09-21] MEDS: Albuterol-Ipratrop 3 mg / 0.5 (3 ml) UD INH SCH ×4 (07:33→19:18)
[2017-09-21] MEDS ORDERED: Lidocaine 0.5% PF (50 ml) Inj INJ ONE (08:01)
[2017-09-21] MEDS ORDERED: STERILE TALC PL ONE ×2 (08:01→08:15)
--- NOTE | 2017-09-21 09:11 | CP.PCM.PN ---
Subjective - Date & Time of Evaluation Date of Evaluation: 09/21/17 Time of Evaluation: 09:02 - Subjective Subjective: Comfortable lying in bed. No SOB or chest discomfort. Vital signs have been stable. SpO2 is 97% on 2LPM nasal canula. Repeat CT chest done yesterday showed partial resolution of pneumothorax. No respiratory recruitment, no IC retractions. Hyper-resonant percussion anteriorly on the left., No subcut emphysema. Breath sounds are diminished bilaterally and still absent anteriorly on the left. No audible wheezes of bronchial breath sounds. No rhonchi or rales. Heart sounds are very distant, regular rhythm, + VPC's on monitor. No air leak seen in PleurEvac, no further fluid drainage. CT chest/abdomen/pelvis reviewed. Presently OOB in chair. Today's CXR reviewed, some residual pneumo suggested at the left lower lung field. Suggest observation for another 24 hrs [address] repeat limited CT chest. Large AAA being evaluated as well for repair. Would request neurology eval before surgical procedures with recent CVA. Objective - Vital Signs/Intake and Output Vital Signs (last 24 hours): Temp Pulse Resp BP Pulse Ox 98.0 F 75 29 H 145/80 90 L 09/21/17 08:00 09/21/17 08:00 09/21/17 08:00 09/21/17 08:00 09/21/17 08:00 Intake and Output: 09/20/17 09/21/17 23:59 11:59 Intake Total 0 Output Total 700 220 Balance -700 -220 - Medications Medications: Current Medications Albuterol Sulfate (Albuterol 0.083% Inhal Wendy (2.5 Mg/3 Ml) Ud) 2.5 mg INH RQ4 PRN PRN Reason: Shortness of Breath Albuterol/Ipratropium (Duoneb 3 Mg/0.5 Mg (3 Ml) Ud) 3 ml INH RQID [facility] Last Admin: 09/21/17 07:33 Dose: 3 ml Amlodipine Besylate (Norvasc) 5 mg PO DAILY [facility] Last Admin: 09/20/17 09:03 Dose: 5 mg Potassium Chloride (Potassium Chloride 20 Meq/100 Ml) 100 mls @ 50 mls/hr IV .Q2H [facility] Last Admin: 09/20/17 00:21 Dose: 50 mls/hr Morphine Sulfate (Morphine) 2 mg IVP Q4 PRN PRN Reason: Pain, moderate (4-7) Nicotine (Nicoderm Cq) 1 patch TD DAILY [facility] Last Admin: 09/20/17 09:03 Dose: 1 patch - Labs Labs: 09/21/17 04:25 09/21/17 04:25 PT 10.7 Seconds (9.8-13.1) 09/21/17 04:25 INR 1.0 (0.9-1.2) 09/21/17 04:25 APTT 28.5 Seconds (25.6-37.1) 09/21/17 04:25 Assessment and Plan (1) Pneumothorax, left Status: Acute (2) Pulmonary emphysema determined by X-ray Status: Chronic
--- NOTE | 2017-09-21 10:01 | RAD ---
Date of service: 09/21/2017 HISTORY: pneumo COMPARISON: No prior. FINDINGS: LUNGS: No active pulmonary disease. PLEURA: No pleural effusion. No pneumothorax. Left apical chest tube unchanged in position. CARDIOVASCULAR: Normal. OSSEOUS STRUCTURES: No significant abnormalities. VISUALIZED UPPER ABDOMEN: Normal. OTHER FINDINGS: None. IMPRESSION: No pneumothorax.
[2017-09-21] MEDS ORDERED: Povidone Iodine Topical 10% Sol ONE (12:43)
[2017-09-21] MEDS ORDERED: Lidocaine 1% Inj (20ml) ONE (12:45)
--- NOTE | 2017-09-21 13:23 | CP.PCM.PN ---
Subjective - Date & Time of Evaluation Date of Evaluation: 09/21/17 Time of Evaluation: 13:21 - Subjective Subjective: Thoracic Surgery - Dr. Lopez Pt S&E. CELINEEO. Pt. denies any chest pain or SOB. Surgery cancelled this morning and chest tube repositioned at bedside. Pt aware of current plan of care, as well as potential need for future transfer to another hospital for repair of AAA. Objective - Vital Signs/Intake and Output Vital Signs (last 24 hours): Temp Pulse Resp BP Pulse Ox 98.0 F 81 23 125/83 96 09/21/17 08:00 09/21/17 10:00 09/21/17 10:00 09/21/17 10:00 09/21/17 10:00 Intake and Output: 09/21/17 09/21/17 06:59 18:59 Intake Total 0 0 Output Total 920 Balance -920 0 - Medications Medications: Current Medications Albuterol Sulfate (Albuterol 0.083% Inhal Wendy (2.5 Mg/3 Ml) Ud) 2.5 mg INH RQ4 PRN PRN Reason: Shortness of Breath Albuterol/Ipratropium (Duoneb 3 Mg/0.5 Mg (3 Ml) Ud) [address] [facility] Last Admin: 09/21/17 11:12 Dose: 3 ml Amlodipine Besylate (Norvasc) [address] [facility] Last Admin: 09/21/17 10:21 Dose: Not Given Potassium Chloride (Potassium Chloride 20 Meq/100 Ml) 100 mls @ 50 mls/hr IV .Q2H [facility] Last Admin: 09/20/17 00:21 Dose: 50 mls/hr Morphine Sulfate (Morphine) 2 mg IVP Q4 PRN PRN Reason: Pain, moderate (4-7) Nicotine (Nicoderm Cq) [address] [facility] Last Admin: 09/21/17 10:21 Dose: 1 patch - Labs Labs: 09/21/17 04:25 09/21/17 04:25 PT 10.7 Seconds (9.8-13.1) 09/21/17 04:25 INR 1.0 (0.9-1.2) 09/21/17 04:25 APTT 28.5 Seconds (25.6-37.1) 09/21/17 04:25 - Constitutional Appears: No Acute Distress - Head Exam Head Exam: ATRAUMATIC, NORMAL INSPECTION, NORMOCEPHALIC - Eye Exam Eye Exam: Normal appearance - Respiratory Exam Respiratory Exam: NORMAL BREATHING PATTERN. absent: Respiratory Distress Additional comments: left chest tube to wall suctoin - Cardiovascular Exam Cardiovascular Exam: REGULAR RHYTHM - Neurological Exam Neurological Exam: Alert, Oriented x3 - Psychiatric Exam Psychiatric exam: Normal Affect, Normal Mood - Skin Skin Exam: Dry, Intact Assessment and Plan - Assessment and Plan (Free Text) Assessment: 77M w/ Left sided pneumothorax s/p chest tube insertion Plan: Repeat CT Chest s/p chest tube advancement Continue low continuos suction Daily CXR Pain control PRN Encourage IS Further care as per primary and ICU teams LUCI Lopez
--- NOTE | 2017-09-21 14:46 | CP.PCM.PN ---
Subjective - Date & Time of Evaluation Date of Evaluation: 09/21/17 Time of Evaluation: 14:37 - Subjective Subjective: Pervious days ct of chest: resideual pneumothorax, left lung. [place]-Not tidaling. Chest tube advanced close to apex at bedside. Follow up ct and cxrs: complete resolution of left pneumothorx. The remaining issue is incidentally discovered 10cm infrarenal abdominal aortic aneurysm(Dr. Bella consulted). a/p: Left pneumothorax resolved.(expectant treatment). Abdominal aortic aneurysm-as per Dr. Bella. Objective - Vital Signs/Intake and Output Vital Signs (last 24 hours): Temp Pulse Resp BP Pulse Ox 98.5 F 74 20 143/87 100 09/21/17 14:00 09/21/17 14:00 09/21/17 14:00 09/21/17 14:00 09/21/17 14:00 Intake and Output: 09/21/17 09/21/17 06:59 18:59 Intake Total 0 0 Output Total 920 Balance -920 0 - Medications Medications: Current Medications Albuterol Sulfate (Albuterol 0.083% Inhal Wendy (2.5 Mg/3 Ml) Ud) 2.5 mg INH RQ4 PRN PRN Reason: Shortness of Breath Albuterol/Ipratropium (Duoneb 3 Mg/0.5 Mg (3 Ml) Ud) 3 ml INH RQID [facility] Last Admin: 09/21/17 11:12 Dose: 3 ml Amlodipine Besylate (Norvasc) 5 mg PO DAILY [facility] Last Admin: 09/21/17 10:21 Dose: Not Given Potassium Chloride (Potassium Chloride 20 Meq/100 Ml) 100 mls @ 50 mls/hr IV .Q2H [facility] Last Admin: 09/20/17 00:21 Dose: 50 mls/hr Morphine Sulfate (Morphine) 2 mg IVP Q4 PRN PRN Reason: Pain, moderate (4-7) Nicotine (Nicoderm Cq) 1 patch TD DAILY [facility] Last Admin: 09/21/17 10:21 Dose: 1 patch - Labs Labs: 09/21/17 04:25 09/21/17 04:25 PT 10.7 Seconds (9.8-13.1) 09/21/17 04:25 INR 1.0 (0.9-1.2) 09/21/17 04:25 APTT 28.5 Seconds (25.6-37.1) 09/21/17 04:25
--- NOTE | 2017-09-21 14:54 | CT ---
Date of service: 09/21/2017 PROCEDURE: CT Chest without contrast HISTORY: post CT advancement, pneumothorax re-assessment COMPARISON: 09/20/2017 TECHNIQUE: Contiguous axial images were obtained through the chest without intravenous contrast enhancement. Sagittal and coronal reconstructions were performed. Radiation dose (DLP): 268.03 mGy-cm. This CT exam was performed using one or more of the following dose reduction techniques: Automated exposure control, adjustment of the mA and/or kV according to patient size, and/or use of iterative reconstruction technique. FINDINGS: LUNGS: No pulmonary infiltrate. Centrilobular pulmonary emphysema is noted. There is no pulmonary mass identified. There is minimal subsegmental atelectasis at the medial left lung base, posteriorly. MEDIASTINUM: Unremarkable thoracic aorta. No aneurysm. Normal sized heart. Main pulmonary artery unremarkable. No vascular congestion. No lymphadenopathy. PLEURA: Left apical chest tube. No pneumothorax. Trace left pleural effusion. No right pleural effusion. . BONES: No fracture. No destructive lesion. UPPER ABDOMEN: Right upper pole renal cyst. The most superior aspect of a known abdominal aortic aneurysm is evident. OTHER FINDINGS: None. IMPRESSION: No pneumothorax. Left chest tube. Centrilobular pulmonary emphysema. Trace left pleural effusion. Additional findings as above.
--- NOTE | 2017-09-21 15:18 | CP.PCM.CON ---
History of Present Illness - History of Present Illness History of Present Illness: 77 yo male s/p intracerebral hemmorhage 1 mo ago, presented with spontaneous pneumothorax, and incidentally noted large AAA needing repair. Pt hemodynamically stable in ICU. Past Patient History - Past Medical History & Family History Past Medical History?: Yes - Past Social History Smoking Status: Heavy Smoker > 10 Cigarettes Daily Chewing Tobacco Use: No Cigar Use: No Alcohol: None Drugs: Denies Home Situation {Lives}: With Family - CARDIAC Hx Hypertension: Yes - PULMONARY Hx Chronic Obstructive Pulmonary Disease (COPD): Yes - NEUROLOGICAL HX Cerebrovascular Accident: Yes (08/08/2017) - HEENT Hx HEENT Problems: No - RENAL Hx Chronic Kidney Disease: No - ENDOCRINE/METABOLIC Hx Endocrine Disorders: No - HEMATOLOGICAL/ONCOLOGICAL Hx Human Immunodeficiency Virus (HIV): No - INTEGUMENTARY Hx Dermatological Problems: No - MUSCULOSKELETAL/RHEUMATOLOGICAL Hx Musculoskeletal Disorders: No Hx Falls: No - GASTROINTESTINAL Hx Gastrointestinal Disorders: No - GENITOURINARY/GYNECOLOGICAL Hx Genitourinary Disorders: No - PSYCHIATRIC Hx Psychophysiologic Disorder: No Hx Substance Use: No - SURGICAL HISTORY Hx Surgeries: No Other/Comment: Dental Procedure ( removal of implant due to gum infection ) - ANESTHESIA Hx Anesthesia: Yes Hx Anesthesia Reactions: No Hx Malignant Hyperthermia: No Meds Allergies/Adverse Reactions: Allergies Allergy/AdvReac Type Severity Reaction Status Date / Time No Known Allergies Allergy Verified 08/14/17 17:31 - Medications Medications: Current Medications Albuterol Sulfate (Albuterol 0.083% Inhal Wendy (2.5 Mg/3 Ml) Ud) 2.5 mg INH RQ4 PRN PRN Reason: Shortness of Breath Albuterol/Ipratropium (Duoneb 3 Mg/0.5 Mg (3 Ml) Ud) 3 ml INH RQID [facility] Last Admin: 09/21/17 11:12 Dose: 3 ml Amlodipine Besylate (Norvasc) 5 mg PO DAILY [facility] Last Admin: 09/21/17 10:21 Dose: Not Given Potassium Chloride (Potassium Chloride 20 Meq/100 Ml) 100 mls @ 50 mls/hr IV .Q2H [facility] Last Admin: 09/20/17 00:21 Dose: 50 mls/hr Morphine Sulfate (Morphine) 2 mg IVP Q4 PRN PRN Reason: Pain, moderate (4-7) Nicotine (Nicoderm Cq) 1 patch TD DAILY [facility] Last Admin: 09/21/17 10:21 Dose: 1 patch Physical Exam - Constitutional Appears: No Acute Distress Results - Vital Signs Recent Vital Signs: Last Vital Signs Temp 98.5 F 09/21/17 14:00 Pulse 74 09/21/17 14:00 Resp 20 09/21/17 14:00 BP 143/87 09/21/17 14:00 Pulse Ox 100 09/21/17 14:00 - Labs Result Diagrams: 09/21/17 04:25 09/21/17 04:25 Labs: Laboratory Results - last 24 hr 09/20/17 09/21/17 09/21/17 10:13 04:25 04:25 WBC 9.1 RBC 4.36 L Hgb 13.3 Hct 39.8 MCV 91.3 MCH 30.4 MCHC 33.3 RDW 16.7 H Plt Count 212 MPV 9.5 Neut % (Auto) 74.4 Lymph % (Auto) 11.7 L [place] % (Auto) 8.1 Eos % (Auto) 5.0 H Baso % (Auto) 0.8 Neut # (Auto) 6.8 Lymph # (Auto) 1.1 [place] # (Auto) 0.7 Eos # (Auto) 0.5 Baso # (Auto) 0.1 PT 10.7 INR 1.0 APTT 28.5 Sodium Potassium Chloride Carbon Dioxide Anion Gap BUN Creatinine Est GFR ( Amer) Est GFR (Non-Af Amer) Random Glucose Calcium Total Bilirubin AST ALT Alkaline Phosphatase Total Protein Albumin Globulin Albumin/Globulin Ratio [id number] 177 09/21/17 04:25 WBC RBC Hgb Hct MCV MCH MCHC RDW Plt Count MPV Neut % (Auto) Lymph % (Auto) [place] % (Auto) Eos % (Auto) Baso % (Auto) Neut # (Auto) Lymph # (Auto) [place] # (Auto) Eos # (Auto) Baso # (Auto) PT INR APTT Sodium 142 Potassium 3.9 Chloride 102 Carbon Dioxide 32 H Anion Gap 12 BUN 25 H Creatinine 1.0 Est GFR ( Amer) > 60 Est GFR (Non-Af Amer) > 60 Random Glucose 89 Calcium 8.6 Total Bilirubin 0.6 AST 28 ALT 50 Alkaline Phosphatase 58 Total Protein 6.3 Albumin 3.3 L Globulin 2.9 Albumin/Globulin Ratio 1.1 [id number] Assessment & Plan - Assessment and Plan (Free Text) Assessment: Pt is at high risk for AAA repair which is indicated due to its large size. Pt should be transferred to a tertiary center experienced in the AAA repair/ high risk patients He should undergo a cardiac catherization via the radial or brachial route to evaluate his coronary arteries prior to repair A neurologist should be consulted due to the need for anticoagulation and the risk of recurrent bleeding from cerebral hemmorhage I have discussed aforementioned concerns to and he and the vascular surgeon are formulating a therapeutic plan including transfer of patient.
--- NOTE | 2017-09-21 15:31 | CARD ---
APPROVED REPORT Date of service: 09/19/2017 EKG Measurement Heart [id number] <Conclusion> Sinus rhythm with occasional premature ventricular complexes and premature atrial complexes Septal infarct, age undetermined Abnormal ECG
--- NOTE | 2017-09-21 21:06 | CP.PCM.PN ---
Subjective - Date & Time of Evaluation Date of Evaluation: 09/21/17 Time of Evaluation: 22:22 - Subjective Subjective: Above noted Pneumothorax resolved D/W Cardiology and Vascular surgery re AAA Objective - Vital Signs/Intake and Output Vital Signs (last 24 hours): Temp Pulse Resp BP Pulse Ox 98.8 F 80 24 132/84 97 09/21/17 16:00 09/21/17 18:00 09/21/17 18:00 09/21/17 18:00 09/21/17 18:00 Intake and Output: 09/21/17 09/22/17 18:59 06:59 Intake Total 0 Balance 0 - Medications Medications: Current Medications Albuterol Sulfate (Albuterol 0.083% Inhal Wendy (2.5 Mg/3 Ml) Ud) 2.5 mg INH RQ4 PRN PRN Reason: Shortness of Breath Albuterol/Ipratropium (Duoneb 3 Mg/0.5 Mg (3 Ml) Ud) 3 ml INH RQID [facility] Last Admin: 09/21/17 19:18 Dose: 3 ml Amlodipine Besylate (Norvasc) 5 mg PO DAILY [facility] Last Admin: 09/21/17 15:53 Dose: 5 mg Potassium Chloride (Potassium Chloride 20 Meq/100 Ml) 100 mls @ 50 mls/hr IV .Q2H [facility] Last Admin: 09/20/17 00:21 Dose: 50 mls/hr Morphine Sulfate (Morphine) 2 mg IVP Q4 PRN PRN Reason: Pain, moderate (4-7) Nicotine (Nicoderm Cq) 1 patch TD DAILY [facility] Last Admin: 09/21/17 10:21 Dose: 1 patch - Labs Labs: 09/21/17 04:25 09/21/17 04:25 PT 10.7 Seconds (9.8-13.1) 09/21/17 04:25 INR 1.0 (0.9-1.2) 09/21/17 04:25 APTT 28.5 Seconds (25.6-37.1) 09/21/17 04:25 - Respiratory Exam Respiratory Exam: NORMAL BREATHING PATTERN - Cardiovascular Exam Cardiovascular Exam: REGULAR RHYTHM - GI/Abdominal Exam GI & Abdominal Exam: Normal Bowel Sounds Assessment and Plan - Assessment and Plan (Free Text) Assessment: L Pneumothorax COPD Chest tube repositioned Pulmonary Thoracic surgery ICU AAA 10 cm Cardiology Vascular surgery S/P ICH R parietal occipital lobe hemorrhage MRI no underlying lesion Neurology HTN smoker Hx vit B12 def
[2017-09-22 05:36] LABS: HEMOGLOBIN 13.1 g/dL (12.0-18.0); MEAN CELL VOLUME 91.8 fl (80.0-94.0); MEAN CORPUSCULAR HEMOGLOBIN 30.4 pg (27.0-31.0); MEAN CORPUSCULAR HGB CONC 33.2 g/dL (33.0-37.0); RBC 4.3 Mil/uL (4.40-5.90); RED CELL DISTRIBUTION WIDTH 16.5 % (11.5-14.5); WHITE BLOOD COUNT 8.1 K/uL (4.8-10.8)
[2017-09-22 05:41] LABS: BLOOD UREA NITROGEN 26 mg/dl (9-20); CALCIUM 8.5 mg/dL (8.4-10.2); GFR AFRICAN-AMERICAN > 60; GFR NON-AFRICAN AMERICAN > 60
--- NOTE | 2017-09-22 07:21 | CP.PCM.PN ---
Subjective - Date & Time of Evaluation Date of Evaluation: 09/22/17 Time of Evaluation: 07:18 - Subjective Subjective: Thoracic Surgery Dr. Lopez Pt S&E @bedside. Pt had tube advanced yesterday @bedside. Pt tolerated well. repeat CXR showed resolution of PTX. NAEO. Pt reports some discomfort from tube after advancement. Pt denies SOB, F/C, N/V. tolerating diet. Objective - Vital Signs/Intake and Output Vital Signs (last 24 hours): Temp Pulse Resp BP Pulse Ox 98.2 F 70 23 132/83 96 09/22/17 04:00 09/22/17 06:00 09/22/17 06:00 09/22/17 06:00 09/22/17 06:00 Intake and Output: 09/22/17 09/22/17 06:59 18:59 Intake Total 400 Output Total 700 Balance -300 - Medications Medications: Current Medications Albuterol Sulfate (Albuterol 0.083% Inhal Wendy (2.5 Mg/3 Ml) Ud) 2.5 mg INH RQ4 PRN PRN Reason: Shortness of Breath Albuterol/Ipratropium (Duoneb 3 Mg/0.5 Mg (3 Ml) Ud) 3 ml INH RQID [facility] Last Admin: 09/21/17 19:18 Dose: 3 ml Amlodipine Besylate (Norvasc) 5 mg PO DAILY [facility] Last Admin: 09/21/17 15:53 Dose: 5 mg Potassium Chloride (Potassium Chloride 20 Meq/100 Ml) 100 mls @ 50 mls/hr IV .Q2H [facility] Last Admin: 09/20/17 00:21 Dose: 50 mls/hr Morphine Sulfate (Morphine) 2 mg IVP Q4 PRN PRN Reason: Pain, moderate (4-7) Nicotine (Nicoderm Cq) 1 patch TD DAILY [facility] Last Admin: 09/21/17 10:21 Dose: 1 patch - Labs Labs: 09/22/17 05:00 09/22/17 05:00 PT 10.7 Seconds (9.8-13.1) 09/21/17 04:25 INR 1.0 (0.9-1.2) 09/21/17 04:25 APTT 28.5 Seconds (25.6-37.1) 09/21/17 04:25 - Constitutional Appears: Non-toxic, No Acute Distress - Head Exam Head Exam: NORMAL INSPECTION - Eye Exam Eye Exam: Normal appearance - ENT Exam ENT Exam: Mucous Membranes Moist - Respiratory Exam Respiratory Exam: NORMAL BREATHING PATTERN. absent: Accessory Muscle Use, Respiratory Distress Additional comments: L CT in place, on suction. no air leak present. - Cardiovascular Exam Cardiovascular Exam: REGULAR RHYTHM. absent: Bradycardia, Tachycardia - GI/Abdominal Exam GI & Abdominal Exam: Soft, Pulsatile Mass. absent: Distended, Tenderness, Rebound - Extremities Exam Extremities Exam: Normal Inspection - Neurological Exam Neurological Exam: Alert, Awake, Oriented x3 - Psychiatric Exam Psychiatric exam: Normal Affect, Normal Mood - Skin Skin Exam: Dry, Intact, Normal Color, Warm Assessment and Plan - Assessment and Plan (Free Text) Assessment: 77 y/o M w/ spontaneous PTX, now resolved s/p LCT placement, incidentally found to have 10cm AAA. - f/u AM CXR - continuous pulse ox monitoring - cont LCT to wall suction; possible waterseal today - recommend pt transfer to [place] for [facility] - maintain normotensive BP - DVT PPx Further recs per Dr. John Fajardo DO PGY3
--- NOTE | 2017-09-22 07:39 | CON ---
DATE: 09/21/2017 NEUROLOGY CONSULTATION REASON FOR CONSULTATION: Old cerebrovascular accident and clearance for surgery. HISTORY OF PRESENTING ILLNESS: The patient is a 77-year-old male who has been here for neurologic evaluation for his history of cerebrovascular accident. The patient had a stroke involving right parietal hemorrhage, this happened in 08/2017. Since that time, he has been doing well. He denies having any headache or dizziness. Denies having any focal weakness in arms or legs. The patient is admitted to the hospital with pneumothorax. REVIEW OF SYSTEMS: Denies any headache, dizziness. Positive for chest pain. Positive for shortness of breath. Denies any constipation, diarrhea, dysuria, pyuria, cough, or sputum production. PAST MEDICAL HISTORY: Includes none other than CVA, which happened in August. CURRENT MEDICATIONS: Include albuterol, morphine sulphate, nicotine patch, and Norvasc. ALLERGIES: NO KNOWN DRUG ALLERGIES. SOCIAL HISTORY: He does smoke cigarettes. Denies use of alcohol or illicit drugs. FAMILY HISTORY: Reviewed and noncontributory to the case. PHYSICAL EXAMINATION: GENERAL: The patient is an elderly male, sitting in no acute distress. VITAL SIGNS: His blood pressure is 131/72, heart rate is 75 per minute, breathing at a rate of 16 per minute, and temperature is 98 degrees Fahrenheit. HEENT: Normocephalic and atraumatic. NECK: Supple. There are no carotid bruits. LUNGS: Clear. CVS: S1 and S2 audible. No murmurs. ABDOMEN: Soft and nontender. Bowel sounds are present. NEUROLOGY: Mental status: The patient is awake and alert, oriented to place, time, and person. Speech is fluent. Naming and repetition normal. Memory and cognition appears intact. Cranial nerve: Pupils are 3 mm bilaterally reactive to light. Visual hill are full. Extraocular movements are intact. There is no facial asymmetry. Palate is upgoing bilaterally and tongue is midline. Motor: Tone is normal. Power is 5/5 bilaterally in all extremities. Reflexes 1+ and symmetrical. Plantars downgoing bilaterally. Cerebellar: Mivuou-ox-dxsl shows no dysmetria. Gait is deferred at the moment. LABORATORY DATA: Labs review shows WBC of 9.1, hemoglobin 13.3, hematocrit 39.8, and platelets of 212. His sodium is 142, potassium 3.9, chloride 102, carbon dioxide content 32. BUN of 25, creatinine 1, and glucose of 89. The patient had CT scan of the head done, which shows no interval hemorrhage or mass effect seen. The change is compatible with resolving prior hyperdense hematoma in the medial right parietal cerebral lobe. IMPRESSION: 1. Status post old cerebrovascular with right parietal hemorrhage. 2. Pneumothorax. RECOMMENDATIONS: 1. The patient's hematoma is resolved now. There is no active hemorrhage in the brain. 2. The patient has no focal neurologic deficit from his stroke. 3. The patient is neurologically stable and clear for any surgical procedure for his pneumothorax and for his abdominal aortic aneurysm. 4. No further neurologic recommendation at present. Please call Neurology on an as needed basis. Thank you for the opportunity to participate in the care of this patient. Jake Bryant MD
[2017-09-22] MEDS: Albuterol-Ipratrop 3 mg / 0.5 (3 ml) UD INH SCH ×4 (08:38→19:32)
--- NOTE | 2017-09-22 08:45 | RAD ---
Date of service: 09/22/2017 HISTORY: chest tube on the left side COMPARISON: 09/21/2017. FINDINGS: There is stable position of the left chest tube with its tip directed towards the apex. LUNGS: The lungs are clear. PLEURA: No significant pleural effusion identified, no pneumothorax apparent. CARDIOVASCULAR: Normal. OSSEOUS STRUCTURES: No significant abnormalities. VISUALIZED UPPER ABDOMEN: Normal. OTHER FINDINGS: None. IMPRESSION: No active pulmonary disease. Stable position of left chest tube.
--- NOTE | 2017-09-22 10:01 | CP.PCM.PN ---
Subjective - Date & Time of Evaluation Date of Evaluation: 09/22/17 Time of Evaluation: 10:01 - Subjective Subjective: Seen on rounds in ICU. Comfortable lying in bed. No complaint of shortness of breath. Modest pain at chest tube site. Tube was repositioned with subsequent CT chest showing complete re-expansion. Small volume of serosanguinous fluid in chest tube. No air leak noted in system. No subcutaneous emphysema, mild hyper-resonance bilaterally. Breath sounds are diminished bilaterally, equally. No audible wheezes, rare dependant dry rales, no bronchial breath sounds. No cyanosis or dependant edema. No calf tenderness. Chest CT also shows almost complete clearing of the left basal atelectasis. There remains a small pleural density seen on CT at the left base medially. Proceed as per surgery and hopefully CT can be removed w/o need for further intervention. Objective - Vital Signs/Intake and Output Vital Signs (last 24 hours): Temp Pulse Resp BP Pulse Ox 97.7 F 87 23 134/64 96 09/22/17 08:00 09/22/17 08:51 09/22/17 08:00 09/22/17 08:51 09/22/17 08:00 Intake and Output: 09/21/17 09/22/17 23:59 11:59 Intake Total 200 600 Output Total 200 700 Balance 0 -100 - Medications Medications: Current Medications Albuterol Sulfate (Albuterol 0.083% Inhal Wendy (2.5 Mg/3 Ml) Ud) 2.5 mg INH RQ4 PRN PRN Reason: Shortness of Breath Albuterol/Ipratropium (Duoneb 3 Mg/0.5 Mg (3 Ml) Ud) 3 ml INH RQID [facility] Last Admin: 09/22/17 08:38 Dose: 3 ml Amlodipine Besylate (Norvasc) 5 mg PO DAILY [facility] Last Admin: 09/22/17 08:51 Dose: 5 mg Potassium Chloride (Potassium Chloride 20 Meq/100 Ml) 100 mls @ 50 mls/hr IV .Q2H [facility] Last Admin: 09/20/17 00:21 Dose: 50 mls/hr Morphine Sulfate (Morphine) 2 mg IVP Q4 PRN PRN Reason: Pain, moderate (4-7) Nicotine (Nicoderm Cq) 1 patch TD DAILY [facility] Last Admin: 09/22/17 08:51 Dose: 1 patch - Labs Labs: 09/22/17 05:00 09/22/17 05:00 PT 10.7 Seconds (9.8-13.1) 09/21/17 04:25 INR 1.0 (0.9-1.2) 09/21/17 04:25 APTT 28.5 Seconds (25.6-37.1) 09/21/17 04:25 Assessment and Plan (1) Pneumothorax, left Status: Acute (2) Pulmonary emphysema determined by X-ray Status: Chronic
--- NOTE | 2017-09-22 12:29 | CP.PCM.PN ---
Subjective - Date & Time of Evaluation Date of Evaluation: 09/22/17 Time of Evaluation: 12:28 - Subjective Subjective: Pt s/e. cxr-No pneumothorax. a/p: Continue chest tube to suction until Monday. Objective - Vital Signs/Intake and Output Vital Signs (last 24 hours): Temp Pulse Resp BP Pulse Ox 97.7 F 75 22 125/76 98 09/22/17 08:00 09/22/17 10:00 09/22/17 10:00 09/22/17 10:00 09/22/17 10:00 Intake and Output: 09/22/17 09/22/17 06:59 18:59 Intake Total 400 400 Output Total 700 200 Balance -300 200 - Medications Medications: Current Medications Albuterol Sulfate (Albuterol 0.083% Inhal Wendy (2.5 Mg/3 Ml) Ud) 2.5 mg INH RQ4 PRN PRN Reason: Shortness of Breath Albuterol/Ipratropium (Duoneb 3 Mg/0.5 Mg (3 Ml) Ud) 3 ml INH RQID [facility] Last Admin: 09/22/17 11:38 Dose: 3 ml Amlodipine Besylate (Norvasc) 5 mg PO DAILY [facility] Last Admin: 09/22/17 08:51 Dose: 5 mg Potassium Chloride (Potassium Chloride 20 Meq/100 Ml) 100 mls @ 50 mls/hr IV .Q2H [facility] Last Admin: 09/20/17 00:21 Dose: 50 mls/hr Morphine Sulfate (Morphine) 2 mg IVP Q4 PRN PRN Reason: Pain, moderate (4-7) Nicotine (Nicoderm Cq) 1 patch TD DAILY [facility] Last Admin: 09/22/17 08:51 Dose: 1 patch - Labs Labs: 09/22/17 05:00 09/22/17 05:00 PT 10.7 Seconds (9.8-13.1) 09/21/17 04:25 INR 1.0 (0.9-1.2) 09/21/17 04:25 APTT 28.5 Seconds (25.6-37.1) 09/21/17 04:25
--- NOTE | 2017-09-22 19:13 | CP.PCM.PN ---
Subjective - Date & Time of Evaluation Date of Evaluation: 09/22/17 Time of Evaluation: 22:22 - Subjective Subjective: Above noted Objective - Vital Signs/Intake and Output Vital Signs (last 24 hours): Temp Pulse Resp BP Pulse Ox 98.4 F 71 25 H 119/92 H 98 09/22/17 16:00 09/22/17 18:00 09/22/17 18:00 09/22/17 18:00 09/22/17 18:00 Intake and Output: 09/22/17 09/23/17 18:59 06:59 Intake Total 800 Output Total 612 Balance 188 - Medications Medications: Current Medications Albuterol Sulfate (Albuterol 0.083% Inhal Wendy (2.5 Mg/3 Ml) Ud) 2.5 mg INH RQ4 PRN PRN Reason: Shortness of Breath Albuterol/Ipratropium (Duoneb 3 Mg/0.5 Mg (3 Ml) Ud) 3 ml INH RQID [facility] Last Admin: 09/22/17 15:21 Dose: 3 ml Amlodipine Besylate (Norvasc) 5 mg PO DAILY [facility] Last Admin: 09/22/17 08:51 Dose: 5 mg Potassium Chloride (Potassium Chloride 20 Meq/100 Ml) 100 mls @ 50 mls/hr IV .Q2H [facility] Last Admin: 09/20/17 00:21 Dose: 50 mls/hr Morphine Sulfate (Morphine) 2 mg IVP Q4 PRN PRN Reason: Pain, moderate (4-7) Nicotine (Nicoderm Cq) 1 patch TD DAILY [facility] Last Admin: 09/22/17 08:51 Dose: 1 patch - Labs Labs: 09/22/17 05:00 09/22/17 05:00 PT 10.7 Seconds (9.8-13.1) 09/21/17 04:25 INR 1.0 (0.9-1.2) 09/21/17 04:25 APTT 28.5 Seconds (25.6-37.1) 09/21/17 04:25 - Respiratory Exam Respiratory Exam: NORMAL BREATHING PATTERN - Cardiovascular Exam Cardiovascular Exam: REGULAR RHYTHM - GI/Abdominal Exam GI & Abdominal Exam: Normal Bowel Sounds Assessment and Plan - Assessment and Plan (Free Text) Assessment: L Pneumothorax COPD Chest tube repositioned Pulmonary Thoracic surgery ICU AAA 10 cm Cardiology Vascular surgery Monitor BP HR [place] vascular sugery S/P ICH R parietal occipital lobe hemorrhage MRI no underlying lesion Neurology HTN smoker Hx vit B12 def
[2017-09-23 05:28] LABS: HEMOGLOBIN 12.3 g/dL (12.0-18.0); MEAN CELL VOLUME 91.4 fl (80.0-94.0); MEAN CORPUSCULAR HEMOGLOBIN 30.6 pg (27.0-31.0); MEAN CORPUSCULAR HGB CONC 33.6 g/dL (33.0-37.0); WHITE BLOOD COUNT 7.7 K/uL (4.8-10.8)
[2017-09-23 05:38] LABS: ALB/GLOB RATIO 1.1 (1.0-2.1); ALBUMIN 3.1 g/dL (3.5-5.0); ALT/SGPT 34 U/L (21-72); AST/SGOT 17 U/L (17-59); BLOOD UREA NITROGEN 24 mg/dl (9-20); CALCIUM 8.4 mg/dL (8.4-10.2); GFR AFRICAN-AMERICAN > 60; GFR NON-AFRICAN AMERICAN > 60
--- NOTE | 2017-09-23 07:38 | CP.PCM.PN ---
Subjective - Date & Time of Evaluation Date of Evaluation: 09/23/17 Time of Evaluation: 07:36 - Subjective Subjective: CT surgery note for Dr. Garett Amin, PGY-2 Pt S & E at bedside at 0705 Pt sleeping/resting comfortably in bed. Denies chest pain, SOB, other complaints. CXR from yesterday showed resolution of PTX. Tolerating diet. Objective - Vital Signs/Intake and Output Vital Signs (last 24 hours): Temp Pulse Resp BP Pulse Ox 97.6 F 69 18 136/79 95 09/23/17 06:00 09/23/17 06:00 09/23/17 06:00 09/23/17 06:00 09/23/17 06:00 Intake and Output: 09/23/17 09/23/17 06:59 18:59 Intake Total 250 Output Total 235 Balance 15 - Medications Medications: Current Medications Albuterol Sulfate (Albuterol 0.083% Inhal Wendy (2.5 Mg/3 Ml) Ud) 2.5 mg INH RQ4 PRN PRN Reason: Shortness of Breath Albuterol/Ipratropium (Duoneb 3 Mg/0.5 Mg (3 Ml) Ud) 3 ml INH RQID [facility] Last Admin: 09/22/17 19:32 Dose: 3 ml Amlodipine Besylate (Norvasc) 5 mg PO DAILY [facility] Last Admin: 09/22/17 08:51 Dose: 5 mg Potassium Chloride (Potassium Chloride 20 Meq/100 Ml) 100 mls @ 50 mls/hr IV .Q2H [facility] Last Admin: 09/20/17 00:21 Dose: 50 mls/hr Nicotine (Nicoderm Cq) 1 patch TD DAILY [facility] Last Admin: 09/22/17 08:51 Dose: 1 patch - Labs Labs: 09/23/17 04:08 09/23/17 04:08 PT 10.7 Seconds (9.8-13.1) 09/21/17 04:25 INR 1.0 (0.9-1.2) 09/21/17 04:25 APTT 28.5 Seconds (25.6-37.1) 09/21/17 04:25 - Constitutional Appears: Non-toxic, No Acute Distress - Head Exam Head Exam: ATRAUMATIC, NORMAL INSPECTION, NORMOCEPHALIC - Eye Exam Eye Exam: EOMI, Normal appearance - ENT Exam ENT Exam: Mucous Membranes Moist, Normal Exam - Neck Exam Neck Exam: Full ROM, Normal Inspection - Respiratory Exam Respiratory Exam: NORMAL BREATHING PATTERN. absent: Chest Wall Tenderness, Respiratory Distress - Cardiovascular Exam Cardiovascular Exam: REGULAR RHYTHM, +S1, +S2 Additional comments: Left axilla with chest tube insertion site- dressing in place- clean/dry/ intact. CT with 10cc serosanguinous output/12H - GI/Abdominal Exam GI & Abdominal Exam: Soft. absent: Distended, Tenderness - Extremities Exam Extremities Exam: Normal Inspection - Neurological Exam Neurological Exam: Alert, Awake, CN II-XII Intact, Oriented x3 - Psychiatric Exam Psychiatric exam: Normal Affect, Normal Mood - Skin Skin Exam: Dry, Intact, Normal Color, Warm Assessment and Plan - Assessment and Plan (Free Text) Assessment: 77M w/ spontaneous PTX, now resolved s/p LCT placement, incidentally found 10cm AAA. Plan: Continuous pulse ox monitoring Left CT to water seal Rec pt transfer to [facility] for [facility] for AAA Maintain normotensive BP DVT ppx Further mgmt as per primary team Will DW attending [place], PGY-2
[2017-09-23] MEDS: Albuterol-Ipratrop 3 mg / 0.5 (3 ml) UD INH SCH ×4 (08:31→19:21)
--- NOTE | 2017-09-23 11:46 | RAD ---
Date of service: 09/23/2017 HISTORY: chest tube COMPARISON: 09/22/2017 FINDINGS: LUNGS: No active pulmonary disease. PLEURA: Left apical chest tube. No pneumothorax. CARDIOVASCULAR: Normal. OSSEOUS STRUCTURES: No significant abnormalities. VISUALIZED UPPER ABDOMEN: Normal. OTHER FINDINGS: None. IMPRESSION: No pneumothorax. Left apical chest tube unchanged in position.
--- NOTE | 2017-09-23 12:07 | CP.CCUPN ---
CCU Subjective - Physician Review Events Since Last Encounter (Free Text): 09/23/17 12:03 Looks comfortable S/P left chest tube CXR today, left lung expanded BP is higher than target range Labs are good. CCU Objective - Vital Signs / Intake & Output Vital Signs (Last 4 hours): Vital Signs Pulse Resp BP Pulse Ox 09/23/17 10:00 74 24 139/86 95 09/23/17 08:34 77 146/79 Intake and Output (Last 8hrs): Intake & Output 09/22/17 09/23/17 09/23/17 22:59 06:59 14:59 Intake Total 650 Output Total 412 235 Balance 238 -235 Weight 160 lb 11.2 oz Intake: IV 10 Oral 640 Output: Chest Tube Drainage 12 10 Left Mid-Axillary Chest 12 10 Urine 400 225 Urine, Voided 400 225 - Physical Exam Narrative Physical Exam (Free Text): 09/23/17 12:04 P/E Neck: No JVD Lungs: No ronchi, crackles Abdomen: soft, non-tender Ext: No edema - Medications Active Medications: Active Medications Generic Name Dose Route Start Last Admin Trade Name Freq PRN Reason Stop Dose Admin Albuterol Sulfate 2.5 mg 09/20/17 09:53 Albuterol 0.083% Inhal Wendy (2.5 Mg/3 Ml) Ud INH RQ4 PRN Shortness of Breath Albuterol/Ipratropium 3 ml 09/20/17 12:00 09/23/17 11:58 Duoneb 3 Mg/0.5 Mg (3 Ml) Ud INH 3 ml RQID [facility] Administration Amlodipine Besylate 5 mg 09/20/17 09:00 09/23/17 08:34 Norvasc PO 5 mg DAILY [facility] Administration Potassium Chloride 100 mls @ 50 mls/hr 09/19/17 23:45 09/20/17 00:21 Potassium Chloride 20 Meq/100 Ml IV 50 mls/hr .Q2H [facility] Administration Nicotine 1 patch 09/20/17 09:00 09/23/17 08:34 Nicoderm Cq TD 1 patch DAILY [facility] Administration - Patient Studies Lab Studies: Lab Studies 09/23/17 09/23/17 Range/Units 04:08 04:08 WBC 7.7 (4.8-10.8) K/uL RBC 4.00 L (4.40-5.90) Mil/uL Hgb 12.3 (12.0-18.0) g/dL Hct 36.5 (35.0-51.0) % MCV 91.4 (80.0-94.0) fl MCH 30.6 (27.0-31.0) pg MCHC 33.6 (33.0-37.0) g/dL RDW 16.0 H (11.5-14.5) % Plt Count 222 (130-400) K/uL Sodium 142 (132-148) mmol/l Potassium 3.7 (3.6-5.0) MMOL/L Chloride 104 (98-107) mmol/L Carbon Dioxide 31 H (22-30) mmol/L Anion Gap 11 (10-20) BUN 24 H (9-20) mg/dl Creatinine 0.8 (0.8-1.5) mg/dl Est GFR ( Amer) > 60 Est GFR (Non-Af Amer) > 60 Random Glucose 70 L (75-110) mg/dL Calcium 8.4 (8.4-10.2) mg/dL Total Bilirubin 0.4 (0.2-1.3) mg/dl AST 17 D (17-59) U/L ALT 34 (21-72) U/L Alkaline Phosphatase 52 (38-126) U/L Total Protein 5.9 L (6.3-8.2) G/DL Albumin 3.1 L (3.5-5.0) g/dL Globulin 2.8 (2.2-3.9) gm/dL Albumin/Globulin Ratio 1.1 (1.0-2.1) Laboratory Results - last 24 hr 09/23/17 09/23/17 04:08 04:08 WBC 7.7 RBC 4.00 L Hgb 12.3 Hct 36.5 MCV 91.4 MCH 30.6 MCHC 33.6 RDW 16.0 H Plt Count 222 Sodium 142 Potassium 3.7 Chloride 104 Carbon Dioxide 31 H Anion Gap 11 BUN 24 H Creatinine 0.8 Est GFR ( Amer) > 60 Est GFR (Non-Af Amer) > 60 Random Glucose 70 L Calcium 8.4 Total Bilirubin 0.4 AST 17 D ALT 34 Alkaline Phosphatase 52 Total Protein 5.9 L Albumin 3.1 L Globulin 2.8 Albumin/Globulin Ratio 1.1 Critical Care Progress Note - Nutrition Nutrition: Nutrition Category Date Time Status Regular Diet [DIET] Diets 09/21/17 Lunch Active Assessment/Plan - Assessment and Plan (Free Text) Assessment: IMPRESSION / MAJOR PROBLEMS NOW: 1. Spontaneous Left PTX, s/p left Chest tube thoracostomy, giid lung expansion 2. Bullous Emphysematous Lung Disease 3. SubAcute hemorrhagic stroke 1 month ago : last CT showed stabe/resolving Rt perietal hematoma 4. r/o Descending AAA 10 cc/ PLAN: 1. Increased norvasc to 10 mg daily 2-Continue current med 3-Chest tune, Pulm/surg following
--- NOTE | 2017-09-23 17:49 | CP.PCM.PN ---
Subjective - Date & Time of Evaluation Date of Evaluation: 09/23/17 Time of Evaluation: 22:22 - Subjective Subjective: Above noted Norvasc increased Objective - Vital Signs/Intake and Output Vital Signs (last 24 hours): Temp Pulse Resp BP Pulse Ox 98.2 F 79 15 132/88 96 09/23/17 12:00 09/23/17 16:00 09/23/17 16:00 09/23/17 16:00 09/23/17 16:00 Intake and Output: 09/23/17 09/23/17 06:59 18:59 Intake Total 250 Output Total 235 Balance 15 - Medications Medications: Current Medications Albuterol Sulfate (Albuterol 0.083% Inhal Wendy (2.5 Mg/3 Ml) Ud) 2.5 mg INH RQ4 PRN PRN Reason: Shortness of Breath Albuterol/Ipratropium (Duoneb 3 Mg/0.5 Mg (3 Ml) Ud) 3 ml INH RQID [facility] Last Admin: 09/23/17 15:25 Dose: 3 ml Amlodipine Besylate (Norvasc) 10 mg PO DAILY [facility] Potassium Chloride (Potassium Chloride 20 Meq/100 Ml) 100 mls @ 50 mls/hr IV .Q2H [facility] Last Admin: 09/20/17 00:21 Dose: 50 mls/hr Morphine Sulfate (Morphine) 2 mg IVP Q4 PRN PRN Reason: Pain, moderate (4-7) Nicotine (Nicoderm Cq) 1 patch TD DAILY [facility] Last Admin: 09/23/17 08:34 Dose: 1 patch - Labs Labs: 09/23/17 04:08 09/23/17 04:08 PT 10.7 Seconds (9.8-13.1) 09/21/17 04:25 INR 1.0 (0.9-1.2) 09/21/17 04:25 APTT 28.5 Seconds (25.6-37.1) 09/21/17 04:25 - Respiratory Exam Respiratory Exam: NORMAL BREATHING PATTERN - Cardiovascular Exam Cardiovascular Exam: REGULAR RHYTHM - GI/Abdominal Exam GI & Abdominal Exam: Normal Bowel Sounds Assessment and Plan - Assessment and Plan (Free Text) Assessment: L Pneumothorax COPD Chest tube Pulmonary Thoracic surgery ICU AAA 10 cm Cardiology Vascular surgery Monitor BP HR [place] vascular sugery S/P ICH R parietal occipital lobe hemorrhage Repeat CT Head resolving hematoma Neurology HTN smoker Hx vit B12 def
[2017-09-24 05:55] LABS: HEMOGLOBIN 12.3 g/dL (12.0-18.0); MEAN CELL VOLUME 91.5 fl (80.0-94.0); MEAN CORPUSCULAR HGB CONC 32.8 g/dL (33.0-37.0); RBC 4.1 Mil/uL (4.40-5.90); RED CELL DISTRIBUTION WIDTH 15.8 % (11.5-14.5); WHITE BLOOD COUNT 7.9 K/uL (4.8-10.8)
[2017-09-24 06:11] LABS: ALB/GLOB RATIO 1.2 (1.0-2.1); ALBUMIN 3.2 g/dL (3.5-5.0); ALT/SGPT 27 U/L (21-72); AST/SGOT 21 U/L (17-59); BLOOD UREA NITROGEN 27 mg/dl (9-20); CALCIUM 8.4 mg/dL (8.4-10.2); GFR AFRICAN-AMERICAN > 60; GFR NON-AFRICAN AMERICAN > 60
--- NOTE | 2017-09-24 07:10 | CP.PCM.PN ---
Subjective - Date & Time of Evaluation Date of Evaluation: 09/24/17 Time of Evaluation: 07:08 - Subjective Subjective: Surgery Pt seen and examined. No acute events. Denies fever, nausea, SOB, CP, abd pain, MARIO, vision changes, syncopy. Chest tube placed on waterseal yesterday. No leak Objective - Vital Signs/Intake and Output Vital Signs (last 24 hours): Temp Pulse Resp BP Pulse Ox 98.4 F 68 23 147/88 98 09/24/17 06:00 09/24/17 06:00 09/24/17 06:00 09/24/17 06:00 09/24/17 06:00 Intake and Output: 09/24/17 09/24/17 06:59 18:59 Intake Total 250 Output Total 625 Balance -375 - Medications Medications: Current Medications Albuterol Sulfate (Albuterol 0.083% Inhal Wendy (2.5 Mg/3 Ml) Ud) 2.5 mg INH RQ4 PRN PRN Reason: Shortness of Breath Albuterol/Ipratropium (Duoneb 3 Mg/0.5 Mg (3 Ml) Ud) 3 ml INH RQID [facility] Last Admin: 09/23/17 19:21 Dose: 3 ml Amlodipine Besylate (Norvasc) 10 mg PO DAILY [facility] Potassium Chloride (Potassium Chloride 20 Meq/100 Ml) 100 mls @ 50 mls/hr IV .Q2H [facility] Last Admin: 09/20/17 00:21 Dose: 50 mls/hr Morphine Sulfate (Morphine) 2 mg IVP Q4 PRN PRN Reason: Pain, moderate (4-7) Nicotine (Nicoderm Cq) 1 patch TD DAILY [facility] Last Admin: 09/23/17 08:34 Dose: 1 patch - Labs Labs: 09/24/17 04:21 09/24/17 04:21 PT 10.7 Seconds (9.8-13.1) 09/21/17 04:25 INR 1.0 (0.9-1.2) 09/21/17 04:25 APTT 28.5 Seconds (25.6-37.1) 09/21/17 04:25 - Constitutional Appears: No Acute Distress - Head Exam Head Exam: ATRAUMATIC, NORMAL INSPECTION, NORMOCEPHALIC - Eye Exam Eye Exam: EOMI, Normal appearance, PERRL Pupil Exam: NORMAL ACCOMODATION, PERRL - ENT Exam ENT Exam: Mucous Membranes Moist, Normal Exam - Neck Exam Neck Exam: Full ROM, Normal Inspection. absent: Lymphadenopathy - Respiratory Exam Respiratory Exam: NORMAL BREATHING PATTERN. absent: Accessory Muscle Use, Chest Wall Tenderness, Prolonged Expiratory Phase, Respiratory Distress - Cardiovascular Exam Cardiovascular Exam: REGULAR RHYTHM, +S1, +S2 - GI/Abdominal Exam GI & Abdominal Exam: Soft, Normal Bowel Sounds, Pulsatile Mass. absent: Distended, Tenderness - Extremities Exam Extremities Exam: Full ROM, Normal Capillary Refill, Normal Inspection. absent : Joint Swelling, Pedal Edema - Back Exam Back Exam: NORMAL INSPECTION - Neurological Exam Neurological Exam: Alert, Awake, CN II-XII Intact, Normal Gait, Oriented x3 - Psychiatric Exam Psychiatric exam: Normal Affect, Normal Mood - Skin Skin Exam: Dry, Intact, Normal Color, Warm Assessment and Plan - Assessment and Plan (Free Text) Assessment: 77M w/ spontaneous PTX, now resolved s/p LCT placement, incidentally found 10cm AAA. Plan: Continuous pulse ox monitoring Left CT to water seal Possible DC of the CT tomorrow Rec pt transfer to [facility] for [facility] for AAA Maintain normotensive BP DVT ppx Further mgmt as per primary team Will DW Dr. Lopez
[2017-09-24] MEDS: Albuterol-Ipratrop 3 mg / 0.5 (3 ml) UD INH SCH ×4 (07:16→19:03)
--- NOTE | 2017-09-24 10:19 | RAD ---
Date of service: 09/24/2017 PROCEDURE: CHEST RADIOGRAPH, 1 VIEW HISTORY: chest tube COMPARISON: 09/23/2017 FINDINGS: LUNGS: Clear. PLEURA: Left apical chest tube unchanged. No pneumothorax. No pleural effusion. CARDIOVASCULAR: Normal. OSSEOUS STRUCTURES: No significant abnormalities. VISUALIZED UPPER ABDOMEN: Normal. OTHER FINDINGS: None. IMPRESSION: No pneumothorax. Left chest tube unchanged in position
--- NOTE | 2017-09-24 11:33 | CP.CCUPN ---
CCU Subjective - Physician Review Events Since Last Encounter (Free Text): 09/24/17 11:31 alert and oriented, no pain,no sob CCU Objective - Vital Signs / Intake & Output Vital Signs (Last 4 hours): Vital Signs Temp Pulse Resp BP Pulse Ox 09/24/17 10:00 75 25 H 137/85 95 09/24/17 08:10 137/65 09/24/17 08:00 98.2 F 76 22 137/65 97 Intake and Output (Last 8hrs): Intake & Output 09/23/17 09/24/17 09/24/17 22:59 06:59 14:59 Intake Total 410 240 480 Output Total 428 400 Balance -18 -160 480 Weight 156 lb 4.8 oz Intake: IV 10 0 Oral 400 240 480 Output: Chest Tube Drainage 3 Left Mid-Axillary Chest 3 Urine 425 400 Urine, Voided 425 400 - Physical Exam Narrative Physical Exam (Free Text): 09/24/17 11:31 P/E Neck: No JVD Lungs: no ronchi, crackles Abdomen: soft, non-tender Ext: no edema Heart: No gallop - Medications Active Medications: Active Medications Generic Name Dose Route Start Last Admin Trade Name Freq PRN Reason Stop Dose Admin Albuterol Sulfate 2.5 mg 09/20/17 09:53 Albuterol 0.083% Inhal Wendy (2.5 Mg/3 Ml) Ud INH RQ4 PRN Shortness of Breath Albuterol/Ipratropium 3 ml 09/20/17 12:00 09/24/17 11:00 Duoneb 3 Mg/0.5 Mg (3 Ml) Ud INH Not Given RQID [facility] Amlodipine Besylate 10 mg 09/24/17 09:00 09/24/17 08:10 Norvasc PO 10 mg DAILY [facility] Administration Potassium Chloride 100 mls @ 50 mls/hr 09/19/17 23:45 09/20/17 00:21 Potassium Chloride 20 Meq/100 Ml IV 50 mls/hr .Q2H [facility] Administration Morphine Sulfate 2 mg 09/23/17 15:56 Morphine IVP Q4 PRN Pain, moderate (4-7) Nicotine 1 patch 09/20/17 09:00 09/24/17 08:10 Nicoderm Cq TD 1 patch DAILY [facility] Administration - Patient Studies Lab Studies: Lab Studies 09/24/17 09/24/17 Range/Units 04:21 04:21 WBC 7.9 (4.8-10.8) K/uL RBC 4.10 L (4.40-5.90) Mil/uL Hgb 12.3 (12.0-18.0) g/dL Hct 37.5 (35.0-51.0) % MCV 91.5 (80.0-94.0) fl MCH 30.0 (27.0-31.0) pg MCHC 32.8 L (33.0-37.0) g/dL RDW 15.8 H (11.5-14.5) % Plt Count 226 (130-400) K/uL Sodium 140 (132-148) mmol/l Potassium 4.0 (3.6-5.0) MMOL/L Chloride 103 (98-107) mmol/L Carbon Dioxide 29 (22-30) mmol/L Anion Gap 12 (10-20) BUN 27 H (9-20) mg/dl Creatinine 0.9 (0.8-1.5) mg/dl Est GFR ( Amer) > 60 Est GFR (Non-Af Amer) > 60 Random Glucose 85 (75-110) mg/dL Calcium 8.4 (8.4-10.2) mg/dL Total Bilirubin 0.4 (0.2-1.3) mg/dl AST 21 (17-59) U/L ALT 27 (21-72) U/L Alkaline Phosphatase 47 (38-126) U/L Total Protein 5.9 L (6.3-8.2) G/DL Albumin 3.2 L (3.5-5.0) g/dL Globulin 2.8 (2.2-3.9) gm/dL Albumin/Globulin Ratio 1.2 (1.0-2.1) Laboratory Results - last 24 hr 09/24/17 09/24/17 04:21 04:21 WBC 7.9 RBC 4.10 L Hgb 12.3 Hct 37.5 MCV 91.5 MCH 30.0 MCHC 32.8 L RDW 15.8 H Plt Count 226 Sodium 140 Potassium 4.0 Chloride 103 Carbon Dioxide 29 Anion Gap 12 BUN 27 H Creatinine 0.9 Est GFR ( Amer) > 60 Est GFR (Non-Af Amer) > 60 Random Glucose 85 Calcium 8.4 Total Bilirubin 0.4 AST 21 ALT 27 Alkaline Phosphatase 47 Total Protein 5.9 L Albumin 3.2 L Globulin 2.8 Albumin/Globulin Ratio 1.2 Critical Care Progress Note - Nutrition Nutrition: Nutrition Category Date Time Status Regular Diet [DIET] Diets 09/21/17 Lunch Active Assessment/Plan - Assessment and Plan (Free Text) Assessment: IMPRESSION / MAJOR PROBLEMS NOW: 1. Spontaneous Left PTX, s/p left Chest tube thoracostomy, giid lung expansion 2. Bullous Emphysematous Lung Disease 3. SubAcute hemorrhagic stroke 1 month ago : last CT showed stabe/resolving Rt perietal hematoma 4. 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 Continue norvasc was increased to 10 mg yesterday . 2-Continue current med 3-Chest tune, Pulm/surg following
--- NOTE | 2017-09-24 12:00 | CP.PCM.PN ---
Subjective - Date & Time of Evaluation Date of Evaluation: 09/24/17 Time of Evaluation: 12:00 - Subjective Subjective: Appears to be doing well. Plan is for removal of chest tube tomorrow. Today's chest x-ray shows continued good expansion of the left lung. On exam there are diminished breath sounds present in both lungs. Rare dry rales are hear in the lung bases. No audible wheezes. No cyanosis, no dependant edema, no calf tenderness. Problem of large abdominal aortic aneurysm will be addressed subsequent to the above. Objective - Vital Signs/Intake and Output Vital Signs (last 24 hours): Temp Pulse Resp BP Pulse Ox 98.2 F 75 25 H 137/85 95 09/24/17 08:00 09/24/17 10:00 09/24/17 10:00 09/24/17 10:00 09/24/17 10:00 Intake and Output: 09/24/17 09/24/17 11:59 23:59 Intake Total 720 Output Total 400 Balance 320 - Medications Medications: Current Medications Albuterol Sulfate (Albuterol 0.083% Inhal Wendy (2.5 Mg/3 Ml) Ud) 2.5 mg INH RQ4 PRN PRN Reason: Shortness of Breath Albuterol/Ipratropium (Duoneb 3 Mg/0.5 Mg (3 Ml) Ud) 3 ml INH RQID [facility] Last Admin: 09/24/17 11:00 Dose: Not Given Amlodipine Besylate (Norvasc) 10 mg PO DAILY [facility] Last Admin: 09/24/17 08:10 Dose: 10 mg Potassium Chloride (Potassium Chloride 20 Meq/100 Ml) 100 mls @ 50 mls/hr IV .Q2H [facility] Last Admin: 09/20/17 00:21 Dose: 50 mls/hr Morphine Sulfate (Morphine) 2 mg IVP Q4 PRN PRN Reason: Pain, moderate (4-7) Nicotine (Nicoderm Cq) 1 patch TD DAILY [facility] Last Admin: 09/24/17 08:10 Dose: 1 patch - Labs Labs: 09/24/17 04:21 09/24/17 04:21 PT 10.7 Seconds (9.8-13.1) 09/21/17 04:25 INR 1.0 (0.9-1.2) 09/21/17 04:25 APTT 28.5 Seconds (25.6-37.1) 09/21/17 04:25 Assessment and Plan (1) Pneumothorax, left Status: Acute (2) Pulmonary emphysema determined by X-ray Status: Chronic
--- NOTE | 2017-09-24 22:18 | CP.PCM.PN ---
Subjective - Date & Time of Evaluation Date of Evaluation: 09/24/17 Time of Evaluation: 22:22 - Subjective Subjective: Above noted Objective - Vital Signs/Intake and Output Vital Signs (last 24 hours): Temp Pulse Resp BP Pulse Ox 98 F 72 25 H 129/84 99 09/24/17 16:17 09/24/17 18:00 09/24/17 18:00 09/24/17 18:00 09/24/17 18:00 Intake and Output: 09/24/17 09/25/17 18:59 06:59 Intake Total 480 Output Total 600 Balance -120 - Medications Medications: Current Medications Albuterol Sulfate (Albuterol 0.083% Inhal Wendy (2.5 Mg/3 Ml) Ud) 2.5 mg INH RQ4 PRN PRN Reason: Shortness of Breath Albuterol/Ipratropium (Duoneb 3 Mg/0.5 Mg (3 Ml) Ud) 3 ml INH RQID [facility] Last Admin: 09/24/17 19:03 Dose: 3 ml Amlodipine Besylate (Norvasc) 10 mg PO DAILY [facility] Last Admin: 09/24/17 08:10 Dose: 10 mg Potassium Chloride (Potassium Chloride 20 Meq/100 Ml) 100 mls @ 50 mls/hr IV .Q2H [facility] Last Admin: 09/20/17 00:21 Dose: 50 mls/hr Morphine Sulfate (Morphine) 2 mg IVP Q4 PRN PRN Reason: Pain, moderate (4-7) Nicotine (Nicoderm Cq) 1 patch TD DAILY [facility] Last Admin: 09/24/17 08:10 Dose: 1 patch - Labs Labs: 09/24/17 04:21 09/24/17 04:21 PT 10.7 Seconds (9.8-13.1) 09/21/17 04:25 INR 1.0 (0.9-1.2) 09/21/17 04:25 APTT 28.5 Seconds (25.6-37.1) 09/21/17 04:25 - Respiratory Exam Respiratory Exam: NORMAL BREATHING PATTERN Assessment and Plan - Assessment and Plan (Free Text) Assessment: L Pneumothorax COPD Chest tube Pulmonary Thoracic surgery ICU AAA 10 cm Cardiology Vascular surgery Monitor BP HR [place] vascular sugery S/P ICH R parietal occipital lobe hemorrhage Repeat CT Head resolving hematoma Neurology HTN smoker Hx vit B12 def
--- NOTE | 2017-09-25 07:34 | CP.PCM.PN ---
Subjective - Date & Time of Evaluation Date of Evaluation: 09/25/17 Time of Evaluation: 07:31 - Subjective Subjective: Thoracic Surgery - Dr. Lopez Pt S&E. CELINEEKatalina. Pt denies any chest pain or SOB. Chest tube in place to waterseal, was clamped this morning on rounds. Objective - Vital Signs/Intake and Output Vital Signs (last 24 hours): Temp Pulse Resp BP Pulse Ox 97.4 F L 67 18 143/85 100 09/25/17 04:00 09/25/17 04:00 09/25/17 04:00 09/25/17 04:00 09/25/17 04:00 Intake and Output: 09/25/17 09/25/17 06:59 18:59 Intake Total 300 Output Total 0 Balance 300 - Medications Medications: Current Medications Albuterol Sulfate (Albuterol 0.083% Inhal Wendy (2.5 Mg/3 Ml) Ud) 2.5 mg INH RQ4 PRN PRN Reason: Shortness of Breath Albuterol/Ipratropium (Duoneb 3 Mg/0.5 Mg (3 Ml) Ud) 3 ml INH RQID [facility] Last Admin: 09/24/17 19:03 Dose: 3 ml Amlodipine Besylate (Norvasc) 10 mg PO DAILY [facility] Last Admin: 09/24/17 08:10 Dose: 10 mg Potassium Chloride (Potassium Chloride 20 Meq/100 Ml) 100 mls @ 50 mls/hr IV .Q2H [facility] Last Admin: 09/20/17 00:21 Dose: 50 mls/hr Morphine Sulfate (Morphine) 2 mg IVP Q4 PRN PRN Reason: Pain, moderate (4-7) Nicotine (Nicoderm Cq) 1 patch TD DAILY [facility] Last Admin: 09/24/17 08:10 Dose: 1 patch - Labs Labs: 09/24/17 04:21 09/24/17 04:21 PT 10.7 Seconds (9.8-13.1) 09/21/17 04:25 INR 1.0 (0.9-1.2) 09/21/17 04:25 APTT 28.5 Seconds (25.6-37.1) 09/21/17 04:25 - Constitutional Appears: No Acute Distress - Head Exam Head Exam: ATRAUMATIC, NORMAL INSPECTION, NORMOCEPHALIC - ENT Exam ENT Exam: Mucous Membranes Moist - Respiratory Exam Respiratory Exam: NORMAL BREATHING PATTERN. absent: Respiratory Distress - Cardiovascular Exam Cardiovascular Exam: REGULAR RHYTHM - GI/Abdominal Exam GI & Abdominal Exam: Soft - Neurological Exam Neurological Exam: Alert, Oriented x3 - Psychiatric Exam Psychiatric exam: Normal Affect, Normal Mood - Skin Skin Exam: Dry, Intact Assessment and Plan - Assessment and Plan (Free Text) Assessment: 77M w/ spontaneous Left PTX, resolved s/p CT, and incidentally found 10cm AAA Plan: Left CT clamped this AM, repeat CXR in 3hours and will plan for removal later today if no recurrent PTX Plans for eventual transfer to [place] for AAA repair Maintain Normotensive BP DVT ppx DW Dr. John Dwyer PGY4
[2017-09-25] MEDS: Albuterol-Ipratrop 3 mg / 0.5 (3 ml) UD INH SCH ×4 (07:53→19:27)
--- NOTE | 2017-09-25 08:03 | RAD ---
Date of service: 09/25/2017 PROCEDURE: CHEST RADIOGRAPH, 1 VIEW HISTORY: pneumothorax COMPARISON: Portable chest 09/24/2017. FINDINGS: LUNGS: Left chest tube unchanged in position. No pneumothorax bilaterally. No acute infiltrates bilaterally. Skin folds are identified at the bilateral mid to inferior lung zones. PLEURA: No pneumothorax or pleural fluid seen. CARDIOVASCULAR: Normal. OSSEOUS STRUCTURES: No significant abnormalities. VISUALIZED UPPER ABDOMEN: Normal. OTHER FINDINGS: None. IMPRESSION: Stable left chest tube placement. No pneumothorax bilaterally. No infiltrates or interval cardiovascular pathology appreciable.
--- NOTE | 2017-09-25 09:50 | CP.PCM.PN ---
Subjective - Date & Time of Evaluation Date of Evaluation: 09/25/17 Time of Evaluation: 09:50 - Subjective Subjective: Appears comfortable, asleep. Chest tube clamped w/o recirrence of pneumothorax. Breath sounds are present bilaterally, equally diminished. No audible wheezes. Dry rales are present in the lower lobes bilaterally. Hopeful for removal of thoracostomy tube. Will need definitive surgery of the AAA.- Objective - Vital Signs/Intake and Output Vital Signs (last 24 hours): Temp Pulse Resp BP Pulse Ox 98.0 F 82 22 123/63 93 L 09/25/17 08:00 09/25/17 08:24 09/25/17 08:00 09/25/17 08:24 09/25/17 08:00 Intake and Output: 09/24/17 09/25/17 23:59 11:59 Intake Total 300 Output Total 600 200 Balance -300 -200 - Medications Medications: Current Medications Albuterol Sulfate (Albuterol 0.083% Inhal Wendy (2.5 Mg/3 Ml) Ud) 2.5 mg INH RQ4 PRN PRN Reason: Shortness of Breath Albuterol/Ipratropium (Duoneb 3 Mg/0.5 Mg (3 Ml) Ud) 3 ml INH RQID [facility] Last Admin: 09/25/17 07:53 Dose: 3 ml Amlodipine Besylate (Norvasc) 10 mg PO DAILY [facility] Last Admin: 09/25/17 08:24 Dose: 10 mg Potassium Chloride (Potassium Chloride 20 Meq/100 Ml) 100 mls @ 50 mls/hr IV .Q2H [facility] Last Admin: 09/20/17 00:21 Dose: 50 mls/hr Morphine Sulfate (Morphine) 2 mg IVP Q4 PRN PRN Reason: Pain, moderate (4-7) Nicotine (Nicoderm Cq) 1 patch TD DAILY [facility] Last Admin: 09/25/17 08:24 Dose: 1 patch - Labs Labs: 09/24/17 04:21 09/24/17 04:21 PT 10.7 Seconds (9.8-13.1) 09/21/17 04:25 INR 1.0 (0.9-1.2) 09/21/17 04:25 APTT 28.5 Seconds (25.6-37.1) 09/21/17 04:25 Assessment and Plan (1) Pneumothorax, left Status: Acute (2) Pulmonary emphysema determined by X-ray Status: Chronic
--- NOTE | 2017-09-25 10:30 | RAD ---
Date of service: 09/21/2017 PROCEDURE: CHEST RADIOGRAPH, 1 VIEW HISTORY: COMPARISON: 09/21/2017 at 4:33 a.m. FINDINGS: LUNGS: No infiltrate. PLEURA: No pneumothorax. Left chest tube has been advanced slightly into the apex. No pleural effusion. CARDIOVASCULAR: Normal. OSSEOUS STRUCTURES: No significant abnormalities. VISUALIZED UPPER ABDOMEN: Normal. OTHER FINDINGS: None. IMPRESSION: Left chest tube advanced slightly. No pneumothorax.
--- NOTE | 2017-09-25 13:29 | CP.PCM.PN ---
Subjective - Date & Time of Evaluation Date of Evaluation: 09/25/17 Time of Evaluation: 13:28 - Subjective Subjective: Pt s/e. chest tube clamped this am. preclamp chest xray-No pneumothorax. will remove tube if no pneumo on postclamp cxr. Objective - Vital Signs/Intake and Output Vital Signs (last 24 hours): Temp Pulse Resp BP Pulse Ox 98.4 F 79 16 128/71 97 09/25/17 12:00 09/25/17 12:00 09/25/17 12:00 09/25/17 12:00 09/25/17 12:00 Intake and Output: 09/25/17 09/25/17 06:59 18:59 Intake Total 300 Output Total 0 200 Balance 300 -200 - Medications Medications: Current Medications Albuterol Sulfate (Albuterol 0.083% Inhal Wendy (2.5 Mg/3 Ml) Ud) 2.5 mg INH RQ4 PRN PRN Reason: Shortness of Breath Albuterol/Ipratropium (Duoneb 3 Mg/0.5 Mg (3 Ml) Ud) 3 ml INH RQID [facility] Last Admin: 09/25/17 11:08 Dose: 3 ml Amlodipine Besylate (Norvasc) 10 mg PO DAILY [facility] Last Admin: 09/25/17 08:24 Dose: 10 mg Potassium Chloride (Potassium Chloride 20 Meq/100 Ml) 100 mls @ 50 mls/hr IV .Q2H [facility] Last Admin: 09/20/17 00:21 Dose: 50 mls/hr Morphine Sulfate (Morphine) 2 mg IVP Q4 PRN PRN Reason: Pain, moderate (4-7) Nicotine (Nicoderm Cq) 1 patch TD DAILY [facility] Last Admin: 09/25/17 08:24 Dose: 1 patch - Labs Labs: 09/24/17 04:21 09/24/17 04:21 PT 10.7 Seconds (9.8-13.1) 09/21/17 04:25 INR 1.0 (0.9-1.2) 09/21/17 04:25 APTT 28.5 Seconds (25.6-37.1) 09/21/17 04:25
--- NOTE | 2017-09-25 13:50 | RAD ---
Date of service: 09/25/2017 PROCEDURE: CHEST RADIOGRAPH, 1 VIEW HISTORY: Chest Tube Clamped COMPARISON: Multiple serial examinations preceding the most recent study: 09/25/2017. FINDINGS: LUNGS: Clear. PLEURA: Stable position of chest tube in the left pleural space. No significant pneumothorax. CARDIOVASCULAR: No radiographic findings to suggest acute or significant cardiovascular disease. OSSEOUS STRUCTURES: No significant abnormalities. VISUALIZED UPPER ABDOMEN: Normal. OTHER FINDINGS: None. IMPRESSION: No significant interval change compared to the prior examination(s). Stable findings left pleural space.
--- NOTE | 2017-09-25 16:36 | RAD ---
Date of service: 09/25/2017 HISTORY: chest tube re-eval COMPARISON: September 25, 2017. Study performed 09:00. FINDINGS: LUNGS: No active pulmonary disease. PLEURA: Stable position of chest tube in the left pleural space. CARDIOVASCULAR: Normal. OSSEOUS STRUCTURES: No significant abnormalities. VISUALIZED UPPER ABDOMEN: Normal. OTHER FINDINGS: Skin folds overlie the left clark thorax, should not be misconstrued at this pneumothorax. IMPRESSION: No acute findings related to/accounting for the clinical presentation. No significant interval change compared to the prior examination(s).
--- NOTE | 2017-09-25 20:56 | CP.PCM.PN ---
Subjective - Date & Time of Evaluation Date of Evaluation: 09/25/17 Time of Evaluation: 22:22 - Subjective Subjective: Doing well Surgery removed chest tube D/W vascular surgery at [place] Possible transfer tomorrow Objective - Vital Signs/Intake and Output Vital Signs (last 24 hours): Temp Pulse Resp BP Pulse Ox 98.2 F 78 22 128/83 95 09/25/17 16:00 09/25/17 18:00 09/25/17 18:00 09/25/17 18:00 09/25/17 18:00 Intake and Output: 09/25/17 09/26/17 18:59 06:59 Output Total 200 Balance -200 - Medications Medications: Current Medications Albuterol Sulfate (Albuterol 0.083% Inhal Wendy (2.5 Mg/3 Ml) Ud) 2.5 mg INH RQ4 PRN PRN Reason: Shortness of Breath Albuterol/Ipratropium (Duoneb 3 Mg/0.5 Mg (3 Ml) Ud) 3 ml INH RQID [facility] Last Admin: 09/25/17 19:27 Dose: 3 ml Amlodipine Besylate (Norvasc) 10 mg PO DAILY [facility] Last Admin: 09/25/17 08:24 Dose: 10 mg Potassium Chloride (Potassium Chloride 20 Meq/100 Ml) 100 mls @ 50 mls/hr IV .Q2H [facility] Last Admin: 09/20/17 00:21 Dose: 50 mls/hr Morphine Sulfate (Morphine) 2 mg IVP Q4 PRN PRN Reason: Pain, moderate (4-7) Nicotine (Nicoderm Cq) 1 patch TD DAILY [facility] Last Admin: 09/25/17 08:24 Dose: 1 patch - Labs Labs: 09/24/17 04:21 09/24/17 04:21 PT 10.7 Seconds (9.8-13.1) 09/21/17 04:25 INR 1.0 (0.9-1.2) 09/21/17 04:25 APTT 28.5 Seconds (25.6-37.1) 09/21/17 04:25 - Respiratory Exam Respiratory Exam: NORMAL BREATHING PATTERN - Cardiovascular Exam Cardiovascular Exam: REGULAR RHYTHM - GI/Abdominal Exam GI & Abdominal Exam: Normal Bowel Sounds Assessment and Plan - Assessment and Plan (Free Text) Assessment: L Pneumothorax COPD Chest tube emoved Pulmonary Thoracic surgery ICU AAA 10 cm Cardiology Monitor BP HR [place] vascular sugery S/P CVA ICH R parietal occipital lobe Repeat CT Head shows resolving hematoma Neurology HTN smoker Hx vit B12 def
--- NOTE | 2017-09-26 00:41 | PN ---
DATE: 09/25/2017 CRITICAL CARE PROGRESS NOTE LOCATION: The patient in ICU, bed 425. TIME SPENT: 35 minutes. The patient is seen and evaluated at the bedside. Past medical, surgical, social and family history reviewed. SUBJECTIVE: A 77-year-old male with chronic obstructive pulmonary disease, hypertension, status post recent intracerebral hemorrhage. Admitted with some shortness of breath, noted to have spontaneous left pneumothorax, status post chest tube insertion. This morning, the patient is seen by the Thoracic Surgery. The tube is clamped. Post-clamped chest x-ray is pending. Remains alert, awake. Follows commands appropriate. No shortness of breath, chest pain, or palpitations. PHYSICAL EXAMINATION: VITAL SIGNS: Temperature 98, heart rate 82 and regular, respiratory rate 22, blood pressure 123/63, pulse oximetry 93%. HEAD, EYES, EARS, NOSE AND THROAT: Pupils are reactive. Conjunctivae are pink. Sclerae are white. Neck is supple. Trachea is central. CHEST: Bilateral breath sounds, diminished in intensity. Clear to auscultation. HEART: Rhythm regular. S1, S2 normal intensity. No S3, S4 gallop. No audible murmur. ABDOMEN: Bowel sounds present. Soft. Liver and spleen not palpable. Bladder not distended. EXTREMITIES: Trace edema. NEUROLOGIC EXAMINATION: Nonfocal. LABORATORY DATA: Chest x-ray post, post-chest tube with expanded lung. WBC 7.9, hemoglobin 12.3, hematocrit 37.5, platelet count 226. PT 10.7, INR 1, PTT 28.5. SMA-7: Sodium 140, potassium 4, chloride 103, CO2 of 29, blood urea nitrogen 27, creatinine 0.9, random glucose 85, calcium 8.4. Total bilirubin 0.4, AST 21, AST 27, alkaline phosphatase 47, total protein 5.9, albumin 3.2. Alpha-1 antitrypsin level of 177. CURRENT MEDICATIONS: Albuterol, Atrovent inhalation 3 mL every 6 hours, Norvasc 10 mg p.o. daily, morphine 2 mg IV every 4 hours p.r.n., nicotine patch 14 mg daily, potassium chloride at 50 mL per hour. IMPRESSION: 1. Pulmonary: Status post spontaneous pneumothorax. Left chest tube in place, clamped. Post-clamped chest x-ray is pending. Discussed with thoracic surgery consult to remove the tube if repeat chest x-ray shows resolution of pneumothorax. 2. Cardiac: Hypertension controlled on amlodipine 10 mg. Incidentally noted to have abdominal aortic aneurysm without involvement of renal artery. The patient is awaiting for transfer to [facility] for further evaluation and repair. 3. Neuro: Status post intracerebral hemorrhage, resolved with residual hematoma. Awake, alert, oriented to name, place and time. 4. Renal: No acute renal insufficiency noted. Stable electrolytes. 5. Hematology: Leukocytosis resolved. Stable hemoglobin and hematocrit and platelet count. 6. Gastroenterology: Tolerating p.o. feeds. Continue analgesics as needed for pain. 7. Prophylaxis: Deep venous thrombosis and gastrointestinal prophylaxis. Jesus Johnson MD
[2017-09-26 05:05] LABS: HEMOGLOBIN 12.2 g/dL (12.0-18.0); MEAN CELL VOLUME 91.2 fl (80.0-94.0); MEAN CORPUSCULAR HEMOGLOBIN 30.1 pg (27.0-31.0); RBC 4.05 Mil/uL (4.40-5.90); RED CELL DISTRIBUTION WIDTH 16.3 % (11.5-14.5); WHITE BLOOD COUNT 7.4 K/uL (4.8-10.8)
[2017-09-26 05:13] LABS: ALB/GLOB RATIO 1.1 (1.0-2.1); ALBUMIN 3.2 g/dL (3.5-5.0); ALT/SGPT 28 U/L (21-72); AST/SGOT 25 U/L (17-59); BLOOD UREA NITROGEN 22 mg/dl (9-20); CALCIUM 8.6 mg/dL (8.4-10.2); GFR AFRICAN-AMERICAN > 60; GFR NON-AFRICAN AMERICAN > 60
--- NOTE | 2017-09-26 07:32 | CP.PCM.PN ---
Subjective - Date & Time of Evaluation Date of Evaluation: 09/26/17 Time of Evaluation: 07:30 - Subjective Subjective: Thoracic Surgery - Dr. Lopez Pt S&E. NAJazminO. Chest tube removed yesterday and post-pull CXR with no residual PTX. Pt doing well, denies any SOB or chest pain. He is aware of plan for possible transfer to [facility] for AAA repair. Objective - Vital Signs/Intake and Output Vital Signs (last 24 hours): Temp Pulse Resp BP Pulse Ox 97.9 F 63 23 107/65 94 L 09/26/17 06:00 09/26/17 06:00 09/26/17 06:00 09/26/17 06:00 09/26/17 06:00 Intake and Output: 09/26/17 09/26/17 06:59 18:59 Intake Total 10 Output Total 700 Balance -690 - Medications Medications: Current Medications Albuterol Sulfate (Albuterol 0.083% Inhal Wendy (2.5 Mg/3 Ml) Ud) 2.5 mg INH RQ4 PRN PRN Reason: Shortness of Breath Albuterol/Ipratropium (Duoneb 3 Mg/0.5 Mg (3 Ml) Ud) 3 ml INH RQID [facility] Last Admin: 09/25/17 19:27 Dose: 3 ml Amlodipine Besylate (Norvasc) 10 mg PO DAILY [facility] Last Admin: 09/25/17 08:24 Dose: 10 mg Potassium Chloride (Potassium Chloride 20 Meq/100 Ml) 100 mls @ 50 mls/hr IV .Q2H [facility] Last Admin: 09/20/17 00:21 Dose: 50 mls/hr Morphine Sulfate (Morphine) 2 mg IVP Q4 PRN PRN Reason: Pain, moderate (4-7) Nicotine (Nicoderm Cq) 1 patch TD DAILY [facility] Last Admin: 09/25/17 08:24 Dose: 1 patch - Labs Labs: 09/26/17 04:30 09/26/17 04:30 PT 10.7 Seconds (9.8-13.1) 09/21/17 04:25 INR 1.0 (0.9-1.2) 09/21/17 04:25 APTT 28.5 Seconds (25.6-37.1) 09/21/17 04:25 - Constitutional Appears: No Acute Distress - Head Exam Head Exam: ATRAUMATIC, NORMAL INSPECTION, NORMOCEPHALIC - Respiratory Exam Respiratory Exam: NORMAL BREATHING PATTERN. absent: Respiratory Distress - Cardiovascular Exam Cardiovascular Exam: REGULAR RHYTHM - Neurological Exam Neurological Exam: Alert, Oriented x3 - Psychiatric Exam Psychiatric exam: Normal Affect, Normal Mood - Skin Skin Exam: Dry, Intact Assessment and Plan - Assessment and Plan (Free Text) Assessment: 77M w/ spontaneous Left PTX, resolved s/p CT, and incidentally found 10cm AAA Plan: -Chest tube removed, Dressing to remain in place 48hours, may be changed tomorrow afternoon -No further surgical intervention from our standpoint -Clear for transfer for AAA repair DW Dr. John Dwyer PGY4
[2017-09-26] MEDS: Albuterol-Ipratrop 3 mg / 0.5 (3 ml) UD INH SCH ×4 (07:39→19:35)
--- NOTE | 2017-09-26 09:35 | CP.PCM.PN ---
Subjective - Date & Time of Evaluation Date of Evaluation: 09/26/17 Time of Evaluation: 09:33 - Subjective Subjective: Has done well. Chest tube removed yesterday w/o recurrence of pneumothorax. No complaints of shortness of breath or chest discomfort. Awaiting disposition regarding repair of large AAA. Will sign off at this time, thank you. Objective - Vital Signs/Intake and Output Vital Signs (last 24 hours): Temp Pulse Resp BP Pulse Ox 98.2 F 79 20 128/73 94 L 09/26/17 08:00 09/26/17 08:19 09/26/17 08:00 09/26/17 08:19 09/26/17 08:00 Intake and Output: 09/25/17 09/26/17 23:59 11:59 Intake Total 10 600 Output Total 300 500 Balance -290 100 - Medications Medications: Current Medications Albuterol Sulfate (Albuterol 0.083% Inhal Wendy (2.5 Mg/3 Ml) Ud) 2.5 mg INH RQ4 PRN PRN Reason: Shortness of Breath Albuterol/Ipratropium (Duoneb 3 Mg/0.5 Mg (3 Ml) Ud) 3 ml INH RQID [facility] Last Admin: 09/26/17 07:39 Dose: 3 ml Amlodipine Besylate (Norvasc) 10 mg PO DAILY [facility] Last Admin: 09/26/17 08:19 Dose: 10 mg Potassium Chloride (Potassium Chloride 20 Meq/100 Ml) 100 mls @ 50 mls/hr IV .Q2H [facility] Last Admin: 09/20/17 00:21 Dose: 50 mls/hr Morphine Sulfate (Morphine) 2 mg IVP Q4 PRN PRN Reason: Pain, moderate (4-7) Nicotine (Nicoderm Cq) 1 patch TD DAILY [facility] Last Admin: 09/26/17 08:19 Dose: 1 patch - Labs Labs: 09/26/17 04:30 09/26/17 04:30 PT 10.7 Seconds (9.8-13.1) 09/21/17 04:25 INR 1.0 (0.9-1.2) 09/21/17 04:25 APTT 28.5 Seconds (25.6-37.1) 09/21/17 04:25 Assessment and Plan (1) Pneumothorax, left Status: Acute (2) Pulmonary emphysema determined by X-ray Status: Chronic
--- NOTE | 2017-09-26 10:15 | RAD ---
Date of service: 09/26/2017 PROCEDURE: CHEST RADIOGRAPH, 1 VIEW HISTORY: s/p CT pull for pneumothorax COMPARISON: Portable chest 09/25/2017 8:39 p.m.. FINDINGS: LUNGS: Clear. PLEURA: Trace linear atelectasis or possible minimal pneumothorax post superolateral left pleural space approaching apex remains questioned. No right pneumothorax. No pleural effusion bilaterally. CARDIOVASCULAR: Normal. OSSEOUS STRUCTURES: No significant abnormalities. VISUALIZED UPPER ABDOMEN: Normal. OTHER FINDINGS: None. IMPRESSION: Trace superolateral left pneumothorax suspected exam otherwise unremarkable, stable.
--- NOTE | 2017-09-26 10:31 | RAD ---
Date of service: 09/25/2017 PROCEDURE: CHEST RADIOGRAPH, 1 VIEW HISTORY: post-pull COMPARISON: Portable chest 09/25/2017 3:55 p.m.. FINDINGS: LUNGS: Trace pneumothorax or linear atelectasis seen at the left apex laterally with the former favored. This pneumothorax is barely perceptible. Left chest tube is been removed. Skin fold is identified at the right chest. No right pneumothorax. No pleural effusion bilaterally. No infiltrate bilaterally. PLEURA: As above. CARDIOVASCULAR: Normal. OSSEOUS STRUCTURES: No significant abnormalities. VISUALIZED UPPER ABDOMEN: Normal. OTHER FINDINGS: None. IMPRESSION: Trace left apical pneumothorax superolaterally. Left chest tube now removed. Exam otherwise unremarkable.
--- NOTE | 2017-09-26 13:50 | CP.PCM.PN ---
Subjective - Date & Time of Evaluation Date of Evaluation: 09/26/17 Time of Evaluation: 13:47 - Subjective Subjective: Pt s/e. No c/o cxr-No pneumothorax. Awaiting to be transferred to [place] for AAA repair. a/p; cxr in am. Disposition as per Dr. Pierson. Objective - Vital Signs/Intake and Output Vital Signs (last 24 hours): Temp Pulse Resp BP Pulse Ox 98.1 F 85 20 103/57 L 94 L 09/26/17 13:37 09/26/17 13:37 09/26/17 13:37 09/26/17 13:37 09/26/17 13:37 Intake and Output: 09/26/17 09/26/17 06:59 18:59 Intake Total 10 600 Output Total 700 100 Balance -690 500 - Medications Medications: Current Medications Albuterol Sulfate (Albuterol 0.083% Inhal Wendy (2.5 Mg/3 Ml) Ud) 2.5 mg INH RQ4 PRN PRN Reason: Shortness of Breath Albuterol/Ipratropium (Duoneb 3 Mg/0.5 Mg (3 Ml) Ud) 3 ml INH RQID [facility] Last Admin: 09/26/17 11:40 Dose: 3 ml Amlodipine Besylate (Norvasc) 10 mg PO DAILY [facility] Last Admin: 09/26/17 08:19 Dose: 10 mg Morphine Sulfate (Morphine) 2 mg IVP Q4 PRN PRN Reason: Pain, moderate (4-7) Nicotine (Nicoderm Cq) 1 patch TD DAILY [facility] Last Admin: 09/26/17 08:19 Dose: 1 patch - Labs Labs: 09/26/17 04:30 09/26/17 04:30 PT 10.7 Seconds (9.8-13.1) 09/21/17 04:25 INR 1.0 (0.9-1.2) 09/21/17 04:25 APTT 28.5 Seconds (25.6-37.1) 09/21/17 04:25
[2017-09-26 16:38] VITALS: TEMP 97.6
--- NOTE | 2017-09-26 20:27 | CP.PCM.PN ---
Subjective - Date & Time of Evaluation Date of Evaluation: 09/26/17 Time of Evaluation: 22:22 - Subjective Subjective: Above noted Doing well Possible transfer to [facility] Objective - Vital Signs/Intake and Output Vital Signs (last 24 hours): Temp Pulse Resp BP Pulse Ox 97.6 F 75 20 124/79 90 L 09/26/17 16:36 09/26/17 16:36 09/26/17 16:36 09/26/17 16:36 09/26/17 16:36 Intake and Output: 09/26/17 09/27/17 18:59 06:59 Intake Total 600 Output Total 100 150 Balance 500 -150 - Medications Medications: Current Medications Albuterol Sulfate (Albuterol 0.083% Inhal Wendy (2.5 Mg/3 Ml) Ud) 2.5 mg INH RQ4 PRN PRN Reason: Shortness of Breath Albuterol/Ipratropium (Duoneb 3 Mg/0.5 Mg (3 Ml) Ud) 3 ml INH RQID [facility] Last Admin: 09/26/17 19:35 Dose: 3 ml Amlodipine Besylate (Norvasc) 10 mg PO DAILY [facility] Last Admin: 09/26/17 08:19 Dose: 10 mg Nicotine (Nicoderm Cq) 1 patch TD DAILY [facility] Last Admin: 09/26/17 08:19 Dose: 1 patch - Labs Labs: 09/26/17 04:30 09/26/17 04:30 PT 10.7 Seconds (9.8-13.1) 09/21/17 04:25 INR 1.0 (0.9-1.2) 09/21/17 04:25 APTT 28.5 Seconds (25.6-37.1) 09/21/17 04:25 - Respiratory Exam Respiratory Exam: NORMAL BREATHING PATTERN - Cardiovascular Exam Cardiovascular Exam: REGULAR RHYTHM - GI/Abdominal Exam GI & Abdominal Exam: Normal Bowel Sounds Assessment and Plan - Assessment and Plan (Free Text) Assessment: S/P L Pneumothorax COPD Chest tube emoved Pulmonary Thoracic surgery ICU AAA 10 cm Cardiology Monitor BP HR Transfer [place] vascular sugery S/P CVA ICH R parietal occipital lobe Repeat CT Head shows resolving hematoma Neurology HTN smoker Hx vit B12 def
[2017-09-26 23:32] VITALS: BP 123/78; PULSE 79; RESP 23; O2SAT 96
--- NOTE | 2017-09-27 00:03 | PN ---
DATE: 09/25/2017 LOCATION: The patient in room 425. TIME SPENT: 25 minutes. The patient is seen and evaluated at the bedside. Past medical, surgical, and social history reviewed. SUBJECTIVE: A 77-year-old male with COPD, hypertension, status post recent intracerebral hemorrhage, admitted with shortness of breath, noted spontaneous pneumothorax, left, status post chest tube insertion. Repeat chest x-ray showed expansion of the lung without residual pneumothorax, seen by CT Surgery. Chest tube was removed, postop chest x-ray reveals no change, no pneumothorax. This morning, alert, awake, follows commands appropriate. Denies chest pain, palpitation. No shortness of breath at rest. No headache. No abdominal discomfort. PHYSICAL EXAMINATION: VITAL SIGNS: Temperature 98.2, heart rate 79, respiratory rate 20, blood pressure 128/73, oxygen saturation 94% on room air. HEAD, EYES, EARS, NOSE, AND THROAT: Pupils are reactive. Conjunctivae are pink. Sclerae white. NECK: Supple. Trachea is central. CHEST: Bilateral breath sounds. Clear to auscultation. Diminished in intensity. HEART: Rhythm regular. S1, S2 normal. No audible murmur. ABDOMEN: Bowel sounds are present. Soft. Liver and spleen not palpable. Bladder not distended. EXTREMITIES: No clubbing, cyanosis, or edema. NEURO: Nonfocal. CURRENT MEDICATIONS: Nicotine patch daily, morphine 2 mg IV every 4 hours p.r.n. for pain, amlodipine 10 mg p.o. daily, albuterol inhalation 2.5 mg via nebulizer every 4 hours. LABORATORY DATA: WBC 7.4, hemoglobin 12.2, hematocrit 36.9, and platelet count 241. SMA-7: Sodium 139, potassium 4.2, chloride 101, CO2 is 31. Blood urea nitrogen 22, creatinine 0.9, random glucose 81, calcium 8.6, total bilirubin 0.5, AST 25, ALT 28, albumin 3.2. Initial smear MRSA negative. IMPRESSION: Status post pneumothorax, left, improved. No residual pneumothorax. Cleared by Thoracic Surgery for transfer to [facility], seen by pulmonary consult. Recommended to continue DuoNeb. Hypertension controlled. [facility]ing [facility]. Discussed with PMD, Dr. Espinosa. While waiting for transfer, the patient can be transferred to telemetry floor. Continue with current medications. Jesus Johnson MD [facility] # [id number]
--- NOTE | 2017-09-27 18:12 | CP.PCM.PN ---
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 Objective - Vital Signs/Intake and Output Vital Signs (last 24 hours): Temp Pulse Resp BP Pulse Ox 97.6 F 79 23 123/78 96 09/26/17 22:00 09/26/17 22:00 09/26/17 22:00 09/26/17 22:00 09/26/17 22:00 Intake and Output: 09/27/17 09/27/17 06:59 18:59 Output Total 150 Balance -150 - Labs Labs: 09/26/17 04:30 09/26/17 04:30 PT 10.7 Seconds (9.8-13.1) 09/21/17 04:25 INR 1.0 (0.9-1.2) 09/21/17 04:25 APTT 28.5 Seconds (25.6-37.1) 09/21/17 04:25
== END 2017-09-26 22:30 | disposition short-term general hospital (02) | DRG 200 ==
LOC: H.ER 18:15 → H.ERHOLD 20:14 → H.ICU/CCU 22:22
PROVIDERS: ADMIT Family Medicine Geriatric Medicine; ATTEND Family Medicine Geriatric Medicine
PROC: 0W9B30Z Drainage of Left Pleural Cavity with Drainage Device, Percutaneous Approach (ICD-10-PCS; principal; 2017-09-19)
DX: J93.83 Other pneumothorax (principal); J98.11 Atelectasis; I69.154 Hemiplegia and hemiparesis following nontraumatic intracerebral hemorrhage affecting left non-dominant side; I71.4 Abdominal aortic aneurysm, without rupture; J43.9 Emphysema, unspecified; E86.0 Dehydration; I10 Essential (primary) hypertension; D72.829 Elevated white blood cell count, unspecified; N28.1 Cyst of kidney, acquired; E53.8 Deficiency of other specified B group vitamins; F17.210 Nicotine dependence, cigarettes, uncomplicated; Z79.82 Long term (current) use of aspirin